=== PATIENT | female | born 2000 | race Caucasian/White ===

== ENCOUNTER → 2025-04-22 | Outpatient (CLI) | payer OTHER, SELFPAY ==
[2025-04-22 13:09] LABS: Hemoglobin A1c 5.6 % (<=5.6)
[2025-04-22 14:31] LABS: Estradiol 57.3 pg/mL; Follicle Stimulating Hormone 6.3 mIU/mL; Vitamin D,25 Hydroxy 15.2 ng/mL (30-100)
[2025-04-22 14:42] LABS: ALB/GLOB Ratio 1.4 RATIO (0.9-2.4); AST(SGOT) 41 U/L (<=31); Alanine Aminotransfer ALT/SGPT 61 U/L (<=34); Albumin, Serum 4.2 g/dL (3.5-5.0); Alkaline Phosphatase 87 U/L (35-104); Anion Gap 12 (5-15); BUN 10 mg/dL (4-19); BUN/Creat Ratio 13.9 RATIO (10-20); Calcium,Total 9.2 mg/dL (7.6-11.0); Carbon Dioxide 21.9 mmol/L (21.0-32.0); Chloride 104 mmol/L (98-108); Creatinine, Serum 0.69 mg/dL (0.70-1.20); EST Glomerular Filtration Rate 123 (>60); Glucose 95 mg/dL (70-99); Protein, Total 7.3 g/dL (5.9-8.4); Sodium Level 137 mmol/L (133-145); Total Bilirubin 0.28 mg/dL (0.00-1.30)
[2025-04-23 04:07] LABS: PROGESTERONE 0.2 ng/mL (.); PROLACTIN 11.9 ng/mL (4.8-33.4)
== END | disposition home or self-care (01) ==
PROVIDERS: Referring Provider Nurse Practitioner Family; Visit Provider Nurse Practitioner Family
DX: R53.83 Other fatigue (principal)
CPT/HCPCS: 36415; 80053; 82306; 82627; 82670; 83001; 83036; 84144; 84146; 84403; 84439; 84443; 82626

== ENCOUNTER → 2025-05-02 | Outpatient (CLI) | payer OTHER, SELFPAY ==
--- NOTE | 2025-05-02 15:56 | US_ITS ---
PROCEDURE: PELVIC W/ TRANSVAGINAL 05/02/2025 REASON FOR EXAM: IRREGULAR PERIODS TECHNIQUE: PELVIC W/ TRANSVAGINAL COMPARISON: None. FINDINGS: Measurements: Uterus: 8.9 x 3.3 x 5.0 cm for volume of 77.1 mL Endometrial Thickness: 0.8 cm Right Ovary: 1.9 x 1.5 x 1.3 cm for volume of 2.0 mL Left Ovary: 3.1 x 1.9 x 3.0 cm for volume of 9.3 mL Uterus: Anteverted. Normal contour and myometrial echotexture. Tiny nabothian cysts at the cervix. Endometrium: Normal echotexture. Right ovary: Normal size and echotexture. Left ovary: Normal size and echotexture. Dominant follicle measuring 1.9 cm. Other adnexal findings: None. Cul-de-sac: No free intraperitoneal fluid identified. DOPPLER: Color Doppler: Normal color flow doppler signal at both ovaries. Spectral Doppler: Normal arterial inflow and venous outflow signal at both ovaries. US/Pelvic w/ Transvaginal IMPRESSION: NORMAL TRANSABDOMINAL AND TRANSVAGINAL PELVIC ULTRASOUND WITH DOPPLER. Reading Location: [id number]
--- OUTSIDE RECORDS SUMMARY | 2025-05-02 23:07 | XMS RPT_ITS | CCD ---
Author Organization [facility] Care Team Providers Care Electric Blanket Wirer Name Role Phone VALDEZANDIE Unavailable Unavailable REFERRED, SELF Unavailable Unavailable MARELY SKINNER Unavailable Unavailable MARELY SKINNER Unavailable Unavailable REFERRED, SELF Unavailable Unavailable MARELY SKINNER Unavailable Unavailable ObsabinohausHenry felixn Unavailable Unavailable Arabella Dubois Unavailable Unavailable ObsabinohausJarrod felix Unavailable Unavailab Deysi Pearce Unavailable Unavailable Porsche Mack Unavailable Unavailable ObsabinohausJarrod felix Unavailable Unavailab Get Bain Unavailable Unavailable ObsabinohausJarrod felix L Unavailable [phone] Alexandra Srivastava Unavailable [phone] Arabella Dubois Unavailable Babar Linn Unavailable ObJarrod wheeler L Unavailable Unavailable Unavailable Von Morris Unavailable Unavailable Bel Dickson Unavailable Unavailable Unavailable Unavailable Neo Gómez Unavailable Unavailable Nichelle Hsieh Unavailable TAYLOR PARTIDA Referring Unavailable Jarrod Patton Primary Care Unavailable NASRA PARTIDAA Attending Unavailable ObJarrod wheeler Primary Care Unavailable TAYLOR PARTIDA Attending Unavailable OBDO JARROD WHEELER Primary Care UnaNichelle Khan Attending Unavailable OberhausJarrod felix DO Primary Care Provider Porsche Bautista Unavailable OBERHAUSER, JARROD L Primary Care Unavailable OBERHAUSER, JARROD L Primary Care Unavailable Oberhauser DO, Jarrod L Primary Care Provider [phone] NATASHA ANU Attending Unavailable OBERHAUSER, JARROD L Primary Care Unavailable OBERHAUSER, JARROD L Primary Care Unavailable OVN MORRIS Attending Unavailable OBERHAUSER, JARROD L Primary Care Unavailable OBERHAUSER, JARROD L Primary Care Unavailable NICHELLE HSIEH Attending Unavailable Veronica PA-C, Steve Primary Care Provider JESSICA HUSTON Attending Unavaila ble STENTZ, STEVE Primary Care Unavailable OBERHAUSER, JARROD Primary Care Unavailable ANDRES PALACIOS Attending Unavailable STENTZ, STEVE Attending Unavailable STENTZ, STEVE Primary Care Unavailable Casper COMPUTER BOOKKEEPER-C, Whit Attending Provider Casper COMPUTER BOOKKEEPER-C, Whit Referring Provider Casper, Whit Attending Unavailable Barkman, Whit Attending Unavailable Barkman, Whit Referring Unavailable Barkman, Whit Attending Unavailable Barkman, Whit Referring Unavailable Stentz, Steve Primary Care Unavailable Whit Shirley Attending Unavailable Luke Dominguez Attending Unavailable Allergies Allergy Classification Reported Allergen(s) Allergy Type Date of Onset Reaction(s) Facility Cephalosporins (antibiotic) (4 sources) Cephalexin; Translations: [cephalexin] Drug Allergy Unknown, [facility] Dust (3 sources) house dust Substance Allergy [facility] [place] [address] [employer] Work Phone: [phone] Mold Extract (3 sources) Mold Extract Drug Allergy [facility] [employer] Work Phone: Penicillins (antibiotic) (4 sources) Penicillin; Translations: [Penicillins] Drug Allergy Unknown, [facility] Pollen (3 sources) bee pollen Substance Allergy [place] [address] [employer] Work Phone: Sulfonamides (antibiotic) (4 sources) Sulfonamides (Antibiotic); Translations: [sulfa] Drug Allergy Unknown, [facility] (20 sources) cephalexin; Translations: [CEPHALEXIN] Drug Allergy 10-31-2 017 Rash, Unknown [facility] Repository (4 sources) AMOXICILLIN-POT CLAVULANATE; Translations: [AMOXICILLIN-POT CLAVULANATE] Propensity to adverse reactions to drug (disorder) Rash [facility] Rep[facility] (2 sources) SULFA ANTIBIOTICS; Translations: [SULFA ANTIBIOTICS] Propensity to adverse reactions to drug (disorder) [facility] (16 sources) bee pollen Allergy to substance (finding) [facility] Work Phone: [phone] (16 sources) house dust Allergy to substance (finding) [facility] Work Phone: [phone] (19 sources) Mold Extract; Translations: [MOLD] Drug Allergy 025 Unknown [facility] Work Phone: [phone] (20 sources) Penicillins; Translations: [Penicillins] Allergy to drug (finding) 017 Rash [facility] Work Phone: [phone] (16 sources) Sulfonamides (Antibiotic); Translations: [sulfa] Allergy to drug (finding) Rash [facility] Work Phone: [phone] (4 sources) Sulfonamides (Antibiotic) Unknown [facility] (6 sources) House dust mite Allergy to substance (finding) [facility] Work Phone: [phone] (6 sources) [place] Allergy to substance (finding) [facility] Work Phone: [phone] (6 sources) populus deltoides subsp. deltoides pollen Allergy to substance (finding) [facility] Work Phone: [phone] (6 sources) Grass Allergy to substance (finding) [facility] Work Phone: [phone] (6 sources) Elm Allergy to substance (finding) [facility] Work Phone: [phone] (8 sources) Nettle; Translations: [NETTLE] Allergy to substance (finding) 025 Unknown [facility] Work Phone: [phone] (6 sources) Maple Flavor LIQD; Translations: [Maple Flavor LIQD] Allergy to drug (finding) [facility] Work Phone: [phone] (6 sources) Animal dander - Cats Allergy to substance (finding) [facility] Work Phone: [phone] (6 sources) Alternaria Allergy to substance (finding) [facility] Work Phone: [phone] (9 sources) Birch; Translations: [BIRCH] Allergy to substance (finding) 025 Unknown [facility] Work Phone: [phone] (6 sources) [place] Allergy to substance (finding) [facility] Work Phone: [phone] (6 sources) Animal dander - Dogs Allergy to substance (finding) [facility] Work Phone: [phone] (6 sources) Animal dander - Horses Allergy to substance (finding) [facility] Work Phone: [phone] (4 sources) Amoxicillin; Translations: [AMOXICILLIN] Drug Allergy 025 Unknown [facility] (9 sources) Bee pollen; Translations: [BEE POLLEN] Drug Allergy Itching [facility] (5 sources) Penicillins Drug Allergy 017 Rash, Runny nose [facility] Work Phone: (10 sources) Sulfonamides (Antibiotic); Translations: [SULFA (SULFONAMIDE ANTIBIOTICS)] Propensity to adverse reactions 020 Rash, Other, Unknown [facility] Work Phone: (8 sources) Horse Dander Standardized Allergenic Extract; Translations: [HORSE DANDER STANDARDIZED ALLERGENIC EXTRACT] Allergy to substance Itching [facility] Work Phone: (9 sources) House Dust Mite; Translations: [HOUSE DUST MITE] Allergy to substance Other [facility] Work Phone: (2 sources) Alternaria alternata allergenic extract; Translations: [ALTERNARIA ALTERNATA ALLERGENIC EXTRACT] Drug Allergy [facility] (3 sources) cedar elm pollen extract; Translations: [TREE POLLEN-ELM, CEDAR] Drug Allergy [facility] Work Phone: (3 sources) Grass pollen; Translations: [GRASS POLLEN] Allergy to substance [facility] Work Phone: (3 sources) white mulberry; Translations: [WHITE MULBERRY] Allergy to substance [facility] Work Phone: (3 sources) Maple Flavoring; Translations: [MAPLE FLAVORING] Drug Allergy [facility] Work Phone: (3 sources) Tree Pollen-Brazilian [place]; Translations: [TREE POLLEN-KITTITIAN SYCAMORE] Allergy to substance [facility] Work Phone: (1 source) Sulfacetamide; Translations: [SULFACETAMIDE SODIUM] Drug Allergy 016 [facility] Repository (2 sources) Sulfonamides (Antibiotic) Allergy to substance 025 Other [facility] (2 sources) Dihydroaminopryidine Antibiotics Allergy to substance 025 Rash [facility] (1 source) Sulfonamides (Antibiotic) Drug allergy (disorder) 025 [facility] Rep[facility] (1 source) Dihydroaminopryidine Antibiotics Drug allergy (disorder) 025 [facility] Repository Medications Current Medications Medication Drug Class(es) Dates Sig (Normalized) Sig (Original) acetaminophen 325 mg oral capsule (3 sources) Start: 11-21-2023 take 1 capsule by mouth once as needed Acetaminophen (Tylenol) 325 mg capsule Active 325 mg PO ONCE as needed November 21, 2023 1:00am acetaminophen (T YLENOL) 325 mg cap Take by mouth three times a day as needed for pain. Active acetaminophen 300 mg / butalbital 50 mg oral tablet (4 sources) Barbiturate take 1 tablet by mouth every four hours butalbital-acetaminophen 50 mg-300 mg oral tablet ; 1 tab(s) orally every 4 hours Quantity: 0 Refills: 0 Ordered: 20-Aug-2019 Fátima Polanco Status: Discontinued Generic Substitution Allowed acetaminophen 325 mg / oxyCODONE hydrochloride 5 mg oral tablet (4 sources) Opioid Agonist Start: 2017 take 1 tablet by mouth every six hours as needed oxyCODONE-acetaminophen 5 mg-325 mg oral tablet ; 1 tab(s) orally every 6 hours, As Needed -Pain - Mod (4-6) ICD-10: 89.18 Quantity: 28 Refills: 0 Ordered: 13-Jul-2018 Hugo Aguilar Start: 13-Jul-2018 Status: Discontinued Generic Substitution Allowed [id number] 200 actuat albuterol 0.09 mg/actuat metered dose inhaler (3 sources) beta2-Adrenergic Agonist Start: 2023 End: 2023 albuterol 90 mcg/actuation inhaler Start: 11-21-2023 End: 07-16-2024 Albuterol Sulfate 90 mcg/act uation HFA aerosol inhaler Discontinued 2 NMA INHALATION EVERY 4-6 HOURS as needed for shortness of breath or wheezing 8.5 November 21, 2023 1:00am July 16, 2024 8:45am aspirin 385 mg / caffeine 30 mg / orphenadrine citrate 25 mg oral tablet (8 sources) Platelet Aggregation Inhibitor, Nonsteroidal Anti-inflammatory Drug, Muscle Relaxant, Central Nervous System Stimulant, Methylxanthine take 1 tablet by mouth once daily Norgesic oral tablet ; 1 dose(s) orally once a day Quantity: 0 Refills: 0 Ordered: 20-Aug-2019 Fátima Polanco Status: Discontinued Generic Substitution Allowed baclofen 10 mg oral tablet (1 source) gamma-Aminobutyric Acid-ergic Agonist Start: 2022 End: 2022 take 1 tablet by mouth twice daily baclofen 10 mg oral tablet ; 1 tab(s) orally 2 times a day Quantity: 14 Refills: 0 Ordered: 13-Mar-2023 Nichelle Hsieh Start: 13-Mar-2023 End: 19-Mar-2023 Generic Substitution Allowed Comments: It is very important that you take or use this exactly as directed. Do not skip doses or discontinue unless directed by your doctor.May cause drowsiness. Alcohol may intensify this effect. Use care when operating dangerous machinery.Obtain medical advice before taking any non-prescription drugs as some may affect the action of this medication. Comment on above: It is very important that you take or use this exactly as directed. Do not skip doses or discontinue unless directed by your doctor.May cause drowsiness. Alcohol may intensify this effect. Use care when operating dangerous machinery.Obtain medical advice before taking any non-prescription drugs as some may affect the action of this medication. BRUTAL/ACT/CAFF (4 sources) BRUTAL/ACT/CAFF ; orally once a day, As Needed Quantity: 0 Refills: 0 Ordered: 11-Nov-2019 Collin Melanic Status: Discontinued Generic Substitution Allowed CETURIZINE (4 sources) CETURIZINE ; orally once a day Quantity: 0 Refills: 0 Ordered: 11-Nov-2019 Fátima Polanco Status: Discontinued Generic Substitution Allowed dextromethorphan hydrobromide 3 mg/ml / promethazine hydrochloride 1.25 mg/ml oral solution (1 source) Phenothiazine, Uncompetitive N-lpzosl-J-aspartate Receptor Antagonist, Sigma-1 Agonist Start: 2023 End: 2023 take 5 mL by mouth four times daily as needed for cough promethazine-DM (Phenergan-DM) 6.25-15 mg/5 mL syrup Indications: Acute URI , Nonspecific syndrome suggestive of viral illness Take 5 mL by mouth 4 times a day as needed for cough for up to 7 days. 118 mL 07/13/2024 07/20/2024 Active docusate sodium 100 mg oral capsule (4 sources) Start: 2017 take 1 capsule by mouth twice daily docusate sodium 100 mg oral capsule ; 1 cap(s) orally 2 times a day Quantity: 0 Refills: 0 Ordered: 12-Jul-2018 Anel Salazar Start: 12-Jul-2018 Status: Discontinued Generic Substitution Allowed naproxen 500 mg oral tablet (1 source) Nonsteroidal Anti-inflammatory Drug Start: 2022 End: 2022 take 1 tablet by mouth twice daily at mealtime naproxen 500 mg oral tablet ; 1 tab(s) orally 2 times a day TAKE WITH FOOD AND DRINK Quantity: 14 Refills: 0 Ordered: 13-Mar-2023 Nichelle Hsieh Start: 13-Mar-2023 End: 19-Mar-2023 Generic Substitution Allowed Comments: Check with your doctor before becoming .May cause drowsiness or dizziness.Obtain medical advice before taking any non-prescription drugs as some may affect the action of this medication.Take with food or milk. Comment on above: Check with your doct or before becoming .May cause drowsiness or dizziness.Obtain medical advice before taking any non-prescription drugs as some may affect the action of this medication.Take with food or milk. Completed/Discontinued Medications Medication Drug Class(es) Dates Sig (Normalized) Sig (Original) acetaminophen 325 mg / HYDROcodone bitartrate 5 mg oral tablet (1 source) Opioid Agonist Start: 07-13-2021 HYDROcodone-Acetam inophen 5-325 MG Oral Tablet Quantity: 10 Refills: 0 Ordered: 13-Jul-2021 DO Start : 13-Jul-2021 Complete alosetron 0.5 mg oral tablet (5 sources) Serotonin-3 Receptor Antagonist Start: 12-07-2020 take 1 tablet by mouth twice daily Alosetron HCl - 0.5 MG Oral Tablet TAKE 1 TABLET TWICE DAILY. Quantity: 60 Refills: 3 Arabella Dubois DO Start : 07-Dec-2020 Active Comment on above: Source=Surescripts, Medication=ALOSETRON TAB 0.5MG, [facility], Duration=30, Date Last Modified/Filled=07-Dec-2020 amitriptyline hydrochloride 50 mg oral tablet (20 sources) Tricyclic Antidepressant Start: 10-09-2021 take 1 tablet by mouth at bedtime Amitriptyline HCl - 50 MG Oral Tablet TAKE 1 TABLET AT BEDTIME. Quantity: 30 Refills: 11 Ordered: 15-Jan-2022 Jarrod Patton DO Start : 09-Oct-2021 Active Start: 06-20-2020 End: 08-01-2021 take 1 tablet by mouth at bedtime Amitriptyline HCl - 100 MG Oral Tablet take 1 tablet by mouth at bedtime Quantity: 30 Refills: 3 Ordered: 10-Oct-2020 Jarrod Patton DO Start : 20-Jun-2020 End : 01-Aug-2021 Complete Start: 06-20-2020 take 1-2 tablets by mouth at bedtime Amitriptyline HCl - 25 MG Oral Tablet TAKE 1-2 TABLET AT BEDTIME. Quantity: 30 Refills: 4 Jarrod Patton DO Start : 20-Jun-2020 Active Comment on above: Source=Surescripts, Medication=AMITRIPTYLIN TAB 25MG, [facility]Source[facility], Duration=30, Date Last Modified/Filled=02-Sep-2020 azithromycin 250 mg oral tablet (10 sources) Macrolide Antimicrobial Start : 07-16 End: 04-22 take 2-5 tablets by mouth once daily Azithromycin 250 mg tablet Discontinued 0 PO .COMPLEX July 16, 2024 12:00am April 22, 2025 9:32am take 500 mg today (day 1), then 250 mg for 4 days (days 2-5) PO Start: 11-21-2023 End: 12-05-2023 take 2-5 tablets by mouth once daily Azithromycin 250 mg tablet Discontinued 0 PO .COMPLEX 6 November 21, 2023 1:00am December 05, 2023 9:22am take 500 mg today (day 1), then 250 mg for 4 days (days 2-5) PO Start: 12-05-2021 End: 01-15-2022 take 1 tablet by mouth once daily Azithromycin 500 MG Oral Tablet TAKE 1 TABLET DAILY UNTIL FINISHED. Quantity: 7 Refills: 0 Ordered: 05-Dec-2021 Jarrod Patton DO Start : 05-Dec-2021 End : 15-Jan-2022 Complete Start: 09-08-2020 take 4 tablets by mouth once A zithromycin 250 MG Oral Tablet TAKE DIRECTED PER PACKAGE INSTRUCTIONS. Quantity: 1 Refills: 0 Ordered: 13-Nov-2021 Jarrod Patton DO Start : 08-Sep-2020 Active benzonatate 200 mg oral capsule (4 sources) Non-narcotic Antitussive Start: 12-05-2023 End: 07-16-2024 take 1 capsule by mouth three times daily as needed for cough Benzonatate 200 mg capsule Discontinued 200 mg PO THREE TIMES A DAY as needed for cough December 05, 2023 1:00am July 16, 2024 8:45am Start: 11-21-2023 End: 12-05-2023 take 2 capsules by mouth three times daily as needed for cough Benzonatate 100 mg capsule Discontinued 200 mg PO THREE TIMES A DAY as needed for cough November 21, 2023 1:00am December 05, 2023 9:22am 24 hr buPROPion hydrochloride 150 mg extended release oral tablet (8 sources) Aminoketone Start: 02-10-2024 End: 08-08-2024 take 1 tablet by mouth once daily in the morning buPROPion XL (Wellbutrin XL) 150 mg 24 hr tablet Indications: Obesity, morbid, BMI 50 or higher (Multi) Take 1 tablet (150 mg) by mouth once daily in the morning. Do not crush, chew, or split. 30 tablet 5 02/10/2024 07/13/2024 Discontinued (Med List Cleanup) Start: 03-16-2020 End: 11-23-2024 buPROPion SR (ZYBAN SR; WELL BUTRIN SR) 150 mg 12 hr tablet 03/16/2020 11/23/2024 Discontinued take 1 tablet by marleny twice daily buPROPion 150 mg/12 hours (SR) oral tablet, extended release ; 1 tab(s) orally 2 times a day Quantity: 0 Refills: 0 Ordered: 20-Aug-2019 Fátima Polanco Status: Discontinued Generic Substitution Allowed busPIRone hydrochloride 5 mg oral tablet (13 sources) Start: 06-20-2020 End: 10-09-2021 take 1 tablet by mouth three times daily busPIRone HCl - 5 MG Oral Tablet Take 1 tablet by mouth three times a day Quantity: 60 Refills: 3 Ordered: 01-Aug-2020 Jarrod Patton DO Start : 20-Jun-2020 End : 09-Oct-2021 Complete Comment on above: Source=Surescripts, Medication=BUSPIRONE HCL 5 MG TABLET, Orig[facility]Source=[facility], OriginatingProvider=JARROD PATTON, Duration=20, Date Last Modified/Filled=01-Aug-2020 chlorhexidine gluconate 1.2 mg/ml mouthwash (1 source) Start: 07-13-2021 Chlorhexidine Gluconate 0.12 % Mouth/Throat Solution Quantity: 473 Refills: 0 Ordered: 13-Jul-2021 DO Start : 13-Jul-2021 Complete dexamethasone 0.5 mg oral tablet (1 source) Corticosteroid Start: 11-14-2021 take 1 tablet by mouth once daily Decadron 0.5 MG Oral Tablet Take 1 tablet daily Quantity: 5 Refills: 0 Ordered: 14-Nov-2021 Jarrod Patton DO Start : 14-Nov-2021 Active dicyclomine hydrochloride 10 mg oral capsule (9 sources) Anticholinergic Start: 07-06-2020 End: 10-09-2021 take 1 capsule by mouth three times daily as needed for muscle spasms Dicyclomine HCl - 10 MG Oral Capsule TAKE 1 CAPSULE 3 times daily PRN spasms Quantity: 60 Refills: 3 Ordered: 06-Jul-2020 Arabella Dubois DO Start : 06-Jul-2020 End : 09-Oct-2021 Complete diphenhydrAMINE hydrochloride 25 mg oral tablet (4 sources) Histamine-1 Receptor Antagonist Start: 07-24-2024 End: 12-07-2024 take 2 tablets by mouth every six hours as needed diphenhydrAMINE (Sominex) 25 mg tablet Take 2 (two) tablets (50 mg total) by mouth every 6 (six) hours as needed for itching . 30 tablet 07/24/2024 11:36 AM EDT 07/24/2024 12/07/2024 Discontinued (Med List Cleanup) Start: 02-21-2024 End: 07-13-2024 take 1 tablet by mouth every six hours diphenhydrAMINE (Sominex) 25 mg tablet Indications: Allergic contact dermatitis due to cosmetics Take 1 tablet (25 mg) by mouth every 6 hours if needed for allergies for up to 30 doses. 30 tablet 02/21/2024 07/13/2024 Discontinued (Med List Cleanup) famotidine 20 mg oral tablet (4 sources) Histamine-2 Receptor Antagonist Start: 02-21-2024 End: 07-13-2024 take 2 tablets by mouth once daily famotidine (Pepcid) 20 mg tablet Indications: Allergic contact dermatitis due to cosmetics Take 2 tablets (40 mg) by mouth once daily for 5 days. 10 tablet 02/21/2024 07/13/2024 Discontinued (Med List Cleanup) Start: 02-21-2024 take 40 mg by mouth once 40 mg , oral, Once, On 02/21/24 at 1025, For 1 dose hydrOXYzine hydrochloride 25 mg oral tablet (7 sources) Antihistamine Start: 12-05-2021 take 1 tablet by mouth three to four times daily as needed hydrOXYzine HCl - 25 MG Oral Tablet TAKE 1 TABLET 3 TO 4 TIMES DAILY NEEDED FOR ITCHING. Quantity: 30 Refills: 1 Ordered: 05-Dec-2021 Jarrod Patton DO Start : 05-Dec-2021 Active ibuprofen 800 mg oral tablet (20 sources) Nonsteroidal Anti-inflammatory Drug Start: 08-16-2019 Ibuprofen 800 MG Oral Tablet Quantity: 30 Refills: 0 Ordered: 16-Aug-2019 DO Start : 16-Aug-2019 Active Start: 08-16-2019 Ibuprofen 800 MG Oral Tablet Quantity: 30 Refills: 0 Start : 16-Aug-2019 Active Start: 01-27-2013 End: 11-23-2024 ibuprofen (MOTRIN) 200 mg ta blet Take 400 mg by mouth. 01/27/2013 11/23/2024 Discontinued take 1 tablet by marleny th every six hours ibuprofen 600 mg oral tablet ; 1 tab(s) orally every 6 hours Quantity: 0 Refills: 0 Ordered: 19-Jul-2021 Judy Meraz Generic Substitution Allowed loratadine 10 mg oral tablet (3 sources) Start: 07-21-2017 End: 11-23-2024 take 1 tablet by mouth once daily loratadine (Claritin) 10 mg tablet Take 1 (one) tablet (10 mg total) by mouth daily for 14 days . 14 tablet 02/23/2024 07/13/2024 Discontinued (Med List Cleanup) 24 hr loratadine 10 mg / pseudoephedrine sulfate 240 mg extended release oral tablet (9 sources) alpha-Adrenergic Agonist End: 10-09-2021 Claritin-D 24 Hour 10-240 MG Oral Tablet Extended Release 24 Hour Quantity: 0 Refills: 0 Ordered: 09-Oct-2021 DO End : 09-Oct-2021 Complete methylPREDNISolone 4 mg oral tablet (2 sources) Corticosteroid Start: 07-16-2024 End: 07-22-2024 take 1 tablet by mouth once Methylprednisolone (Medrol (Asad)) 4 mg tablets,dose pack Discontinued 4 mg PO per package directions 30 04July 16, 2024 12:00am July 21, 2024 12:00am July 22, 2024 12:05am montelukast 10 mg oral tablet (2 sources) Leukotriene Receptor Antagonist Start: 02-27-2024 End: 07-13-2024 take 1 tablet by mouth once daily montelukast (Singulair) 10 mg tablet Take 1 tablet (10 mg) by mouth once daily. 30 tablet 4 02/27/2024 07/13/2024 Discontinued (Med List Cleanup) nitrofurantoin, macrocrystals 100 mg oral capsule (4 sources) Nitrofuran Antibacterial Start: 08-20-2019 End: 08-24-2019 take 1 capsule by mouth twice daily at mealtime Macrodantin 100 mg oral capsule ; 1 cap(s) orally 2 times a day Quantity: 10 Refills: 0 Ordered: 20-Aug-2019 Jose Liu Start: 20-Aug-2019 End: 24-Aug-2019 Status: Discontinued Generic Substitution Allowed Comments: Finish all this medication unless otherwise directed by prescriber.May discolor urine or feces.Take with food or milk. Comment on above: Finish all this medi cation unless otherwise directed by prescriber.May discolor urine or feces.Take with food or milk. ondansetron 4 mg oral tablet (3 sources) Serotonin-3 Receptor Antagonist Start: 12-18-2021 End: 01-15-2022 take 1 tablet by mouth every six hours Ondansetron HCl - 4 MG Oral Tablet TAKE 1 TABLET Every 6 hours PRN nausea Quantity: 20 Refills: 0 Ordered: 18-Dec-2021 Jarrod Patton DO Start : 18-Dec-2021 End : 15-Jan-2022 Complete 24 hr oxybutynin chloride 10 mg extended release oral tablet (10 sources) Cholinergic Muscarinic Antagonist Start: 12-07-2020 End: 10-09-2021 take 1 tablet by mouth once daily Oxybutynin Chloride ER 10 MG Oral Tablet Extended Release 24 Hour Take 1 tablet daily Quantity: 3 Refills: 11 Ordered: 07-Dec-2020 Ilene CHIN, PhD, Get Start : 07-Dec-2020 End : 09-Oct-2021 Complete Comment on above: Source=Surescripts, Medication=OXYBUTYNIN TAB 10MG ER, [facility]Source=[facility], Duration=30, Date Last Modified/Filled=07-Dec-2020 Pre- TABS (1 source) Pre-Oswaldo TABS Refills: 0 Active Pre- TABS (5 sources) End: 10-09-2021 Pre-Oswaldo TABS Quantity: 0 Refills: 0 Ordered: 09-Oct-2021 DO End : 09-Oct-2021 Complete Pre-Oswaldo TABS Q uantity: 0 Refills: 0 Ordered: 07-Nov-2020 DO Active predniSONE 50 mg oral tablet (11 sources) Start: 07-24-2024 End: 12-07-2024 take 1 tablet by mouth once daily predniSONE (Deltasone) 50 mg tablet Take 1 (one) tablet (50 mg total) by mouth daily for 5 days . 5 tablet 07/24/2024 11:36 AM EDT 07/24/2024 12/07/2024 Discontinued (Med List Cleanup) Start: 02-23-2024 End: 07-13-2024 take 3 tablets by mouth once daily, then take 2 tablets by mouth once daily, then take 1 tablet by mouth once daily, then take 0.5 tablet by mouth once daily predniSONE (Deltasone) 20 mg tablet Take 3 (three) tablets (60 mg total) by mouth daily for 2 days, THEN 2 (two) tablets (40 mg total) daily for 3 days, THEN 1 (one) tablet (20 mg total) daily for 3 days, THEN 0.5 (one-half) tablet (10 mg total) daily for 2 days. 16 tablet 02/23/2024 07/13/2024 Discontinued (Med List Cleanup) Start: 02-21-2024 End: 02-25-2024 take 4 tablets by mouth once daily predniSONE (Deltasone) 10 mg tablet Indications: Allergic contact dermatitis due to cosmetics Take 4 tablets (40 mg) by mouth once daily for 4 days. 16 tablet 02/21/2024 02/25/2024 Active Start: 02-21-2024 End: 02-21-2024 take 40 mg by mouth once 40 mg, oral, Once, On Sat at 1025, For 1 dose Start: 12-05-2023 End: 07-16-2024 take 1 tablet by mouth twice daily Prednisone 10 mg tablet Discontinued 10 mg PO TWICE A DAY December 05, 2023 1:00am July 16, 2024 8:45am Start: 08-20-2019 take 3 tablets by mo uth once daily at mealtime predniSONE 20 mg oral tablet ; 3 tab(s) orally once a day Quantity: 3 Refills: 0 Ordered: 20-Aug-2019 Jose Liu J Start: 20-Aug-2019 Status: Discontinued Generic Substitution Allowed Comments: It is very important that you take or use this exactly as directed. Do not skip doses or discontinue unless directed by your doctor.Obtain medical advice before taking any non-prescription drugs as some may affect the action of this medication.Take with food or milk. Comment on above: It is very important that you take or use this exactly as directed. Do not skip doses or discontinue unless directed by your doctor.Obtain medical advice before taking any non-prescription drugs as some may affect the action of this medication.Take with food or milk. rifAXIMin 550 mg oral tablet (3 sources) Rifamycin Antibacterial Start: 06-14-20 End: 10-09-20 21 take 1 tablet by mouth three times daily Xifaxan 550 MG Oral Tablet 1 tablet 3 times daily until gone Quantity: 42 Refills: 0 Ordered: 14-Jun-2021 Arabella Dubois DO Start : 14-Jun-2021 End : 09-Oct-2021 Complete SUMAtriptan 50 mg oral tablet (11 sources) Serotonin-1b and Serotonin-1d Receptor Agonist Start: 10-09-20 21 take 1 tablet by mouth once daily as needed for headache SUMAtriptan Succinate 50 MG Oral Tablet TAKE ONE TABLET BY MOUTH DAILY NEEDED FOR MIGRAINE HEADACHE, M... Quantity: 12 Refills: 3 Ordered: 09-Oct-2021 Jarrod Patton DO Start : 09-Oct-2021 Active tirzepatide, weight loss, (Zepbound) 2.5 mg/0.5 mL injection (4 sources) Start: 02-10-20 End: 07-13-20 tirzepatide, weight loss, (Zepbound) 2.5 mg/0.5 mL injection Indications: Obesity, morbid, BMI 50 or higher (Multi) Inject 2.5 mg under the skin every 7 days. 4 each 02/10/2024 07/13/2024 Discontinued (Med List Cleanup) Start: 02-10-2024 tirzepatide, w eight loss, (Zepbound) 2.5 mg/0.5 mL injection Indications: Obesity, morbid, BMI 50 or higher (Multi) Inject 2.5 mg under the skin every 7 days. 4 each 02/10/2024 Active Start: 02-10-2024 tirzepatide, w eight loss, (Zepbound) 2.5 mg/0.5 mL injection Indications: Obesity, morbid, BMI 50 or higher (CMS/HCC) Inject 2.5 mg under the skin every 7 days. 4 each 0 02/10/2024 Active Problems Active Problems Problem Classification Problem Date Documented Da te Episodic/Chronic Abdominal pain (19 sources) Left lower quadrant pain; Translations: [Abdominal pain, left lower quadrant] Episodic Anxiety disorders (19 sources) Anxiety; Translations: [Anxiety state, unspecified] Chronic E Codes: Fall (1 source) Fall on same level from slipping, tripping and stumbling with subsequent striking against other object, initial encounter; Translations: [Fall same lev from slip/trip w strike agnst oth object, init] Onset: 03-13-2023 Episodic Female infertility (1 source) Female infertility; Translations: [Female infertility, unspecified] 12-07-2024 Chronic Genitourinary symptoms and ill-defined conditions (18 sources) Urinary incontinence; Translations: [Urinary incontinence, unspecified] Chronic Headache; including migraine (19 sources) Migraine; Translations: [Migraine, unspecified, without mention of intractable migraine without mention of status migrainosus] Chronic Immunizations and screening for infectious disease (20 sources) Patient encounter status; Translations: [Screening examination for venereal disease] 04-22-2025 Episodic Comment on above: has attempted pregna ncy since 2021-hx 2 miscarriages (around 8 weeks) Malaise and fatigue (1 source) Other fatigue; Translations: [Other fatigue] Onset: 04-28-2025 Episodic Menstrual disorders (9 sources) Missed period; Translations: [Irregular menstrual cycle] Onset: 04-22-2025 04-22-2025 Chronic Nausea and vomiting (6 sources) Nausea and vomiting; Translations: [Nausea with vomiting] Episodic Nutritional deficiencies (1 source) Vitamin D deficiency; Translations: [Vitamin D deficiency, unspecified] 04-26-2025 Chronic Nutritional deficiencies (4 sources) Iron deficiency; Translations: [Iron deficiency anemia, unspecified] Episodic Other and unspecified benign neoplasm (1 source) Neuroma of foot; Translations: [Alonso's neuroma of left foot] Episodic Other bone disease and musculoskeletal deformities (1 source) Idiopathic kyphoscoliosis; Translations: [Other idiopathic scoliosis, site unspecified] Onset: 08-09-2010 11-23-2024 Chronic Other connective tissue disease (19 sources) Foot pain; Translations: [Pain in limb] Episodic Other diseases of bladder and urethra (16 sources) Overactive bladder; Translations: [Overactive bladder] Chronic Other female genital disorders (20 sources) Abnormal uterine bleeding; Translations: [Unspecified disorders of menstruation and other abnormal bleeding from female genital tract] 01-12-2022 Chronic Other female genital disorders (1 source) Dysfunctional uterine bleeding 01-12-2022 Chronic Other gastrointestinal disorders (19 sources) Irritable bowel syndrome with diarrhea; Translations: [Irritable bowel syndrome] Chronic Other gastrointestinal disorders (19 sources) Constipation; Translations: [Constipation, unspecified] Episodic Other gastrointestinal disorders (19 sources) Diarrhea; Translations: [Diarrhea] Episodic Other gastrointestinal disorders (17 sources) Incontinence of feces; Translations: [Full incontinence of feces] Episodic Other injuries and conditions due to external causes (1 source) Allergic reaction; Translations: [Allergy, unspecified, sequela] 03-04-2024 Episodic Other liver diseases (2 sources) Elevated liver enzymes level; Translations: [Other nonspecific abnormal serum enzyme levels] 01-12-2022 Episodic Other nervous system disorders (20 sources) Alonso's metatarsalgia; 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 Other nervous system disorders (3 sources) Mortons neuroma of left foot; 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 Other nutritional; endocrine; and metabolic disorders (14 sources) Body mass index 40+ - severely obese; Translations: [Morbid obesity] Chronic Other nutritional; endocrine; and metabolic disorders (8 sources) Morbid obesity; Translations: [Morbid (severe) obesity due to excess calories] Onset: 02-10-2024 02-10-2024 Chronic Other nutritional; endocrine; and metabolic disorders (3 sources) Obesity; Translations: [Obesity, unspecified] 04-22-2025 Chronic Other nutritional; endocrine; and metabolic disorders (2 sources) Abnormal weight gain; Translations: [Abnormal weight gain] Onset: 02-10-2024 Episodic Other screening for suspected conditions (not mental disorders or infectious disease) (20 sources) Cancer cervix - screening done; Translations: [Cancer cervix screening status] Onset: 01-02-2023 Episodic Other upper respiratory disease (19 sources) Seasonal allergy; Translations: [Allergic rhinitis, cause unspecified] Chronic Other upper respiratory disease (2 sources) Allergic rhinitis due to pollen; Translations: [Allergic rhinitis due to pollen] Onset: 02-27-2024 Chronic Other upper respiratory infections (16 sources) Sinusitis; Translations: [Unspecified sinusitis (chronic)] Chronic Other upper respiratory infections (20 sources) Sore throat symptom; Translations: [Acute pharyngitis] Onset: 07-13-2024 07-13-2024 Episodic Spondylosis; intervertebral disc disorders; other back problems (1 source) Pain in thoracic spine; Translations: [Pain in thoracic spine] Onset: 03-13-2023 Episodic Superficial injury; contusion (3 sources) Contusion of nose; Translations: [Contusion of face, scalp, and neck except eye(s)] 04-16-2021 Episodic Unclassified (2 sources) POSS CARTILAGE BREAK IN NOSE 04-16-2021 Comment on above: POSS CARTILAGE BREAK IN NOSE Unclassified (1 source) 1 MONTH FU 04-16-2021 Comment on above: 1 MONTH FU Unclassified (2 sources) LT FOOT PAIN 07-19-2021 Comment on above: LT FOOT PAIN Unclassified (2 sources) Patient encounter procedure 11-07-2020 Comment on above: YEARLY Unclassified (2 sources) LEFT HAND PAIN 08-10-2021 Comment on above: LEFT HAND PAIN Unclassified (1 source) Contusion of left hand 08-10-2021 Unclassified (2 sources) 5-6 WEEKS , BLEEDING, CRAMPING 01-11-2022 Comment on above: 5-6 WEEKS , BLEEDING, CRAMPING Unclassified (1 source) NEW OB- LMP 12/0812-31-2021 Comment on above: NEW OB- LMP 12/08 Unclassified (1 source) 2 MONTH FUV 12-05-2021 Comment on above: 2 MONTH FUV Unclassified (1 source) Elevated liver enzymes 01-12-2022 Unclassified (2 sources) FALL OFF CEMENT STEP 03-13-2023 Comment on above: FALL OFF CEMENT STEP Unclassified (2 sources) Contusion of middle back wall of thorax, initial encounter; Translations: [Contusion of middle back wall of thorax, initial encounter] Onset: 03-13-2023 Past or Other Problems Problem Classification Problem Date Documented Da te Episodic/Chronic Acute bronchitis (5 sources) Acute bronchitis, unspecified; Translations: [Acute bronchitis] Onset: 12-20-2023 Episodic Allergic reactions (20 sources) Allergic condition; Translations: [Allergy, unspecified, not elsewhere classified] Onset: 02-21-2024 02-21-2024 Episodic Blindness and vision defects (1 source) Bilateral hyperopia of eyes; Translations: [Hypermetropia, bilateral] Onset: 2020 2020 Episodic Fracture of upper limb (1 source) Fracture dislocation of elbow joint; Translations: [Unspecified fracture of lower end of left humerus, initial encounter for closed fracture] Onset: 07-17-2016 11-23-2024 Episodic Other nutritional; endocrine; and metabolic disorders (5 sources) Weight gain; Translations: [Abnormal weight gain] Onset: 02-10-2024 02-10-2024 Episodic Other nutritional; endocrine; and metabolic disorders (1 source) Weight increased; Translations: [Abnormal weight gain] Onset: 02-10-2024 02-10-2024 Episodic Unclassified (19 sources) Finding of menstrual bleeding; Translations: [Menstruation] Comment on above: Onset age 8 years; Unclassified (4 sources) Patient encounter status; Translations: [Screening for STD (sexually transmitted disease)] Unclassified (1 source) Cancer cervix screening status; Translations: [Screening for cervical cancer] Unclassified (5 sources) Onset: 02-10-2024 Resolved: 12-07-2024 02-10-2024 Unclassified (1 source) pt to est care Onset: 12-07-2024 Viral infection (11 sources) Disease caused by 2019-nCoV; Translations: [Other specified viral infection] Onset: 07-13-2024 07-13-2024 Episodic NEGATED: Highlighted row has not occurred!Residual codes; unclassified (20 sources) Disease Episodic Results Test Name Value Interpretation Reference Range Facility DHEA Sulfateon 04-23-2025 DHEA SULFATE 116.0 ug/dL Normal 84.8-378.0 [facility] Comment on above: Order Comment: N Performed By: #### L 501.9985, L3100.5125, L3300.1750, L500.4050, L506.0400, L506.1001, L501.9520, L509.3001, L3100.5400, L3300.1500, L801.2600 #### [facility] [address] [place], [place], [address] PROGESTERONE 4317on 04-23-20 PROGESTERONE 0.2 ng/mL Normal . [facility] Comment on above: Order Comment: N Result Comment: Foll icular phase 0.1 - 0.9 Luteal phase 1.8 - 23.9 Ovulation phase 0.1 - 12.0 First trimester 11.0 - 44.3 Second trimester 25.4 - 83.3 Third trimester 58.7 - 214.0 Postmenopausal 0.0 - 0.1 Performed at: [facility] [id number] [employer] Admin: David Tai PhD, Phone: [phone] Performed By: #### L 501.9985, L3100.5125, L3300.1750, L500.4050, L506.0400, L506.1001, L501.9520, L509.3001, L3100.5400, L3300.1500, L801.2600 #### [facility] [address] [facility] [place], [place], [id number] PROLACTIN 4465on 04-23-2025 PROLACTIN 11.9 ng/mL Normal 4.8-33.4 [facility] Comment on above: Result Comment: Perf ormed at: [employer] [id number] [employer] Admin: David Tai PhD, Phone: [phone] Performed By: #### L 501.9985, L3100.5125, L3300.1750, L500.4050, L506.0400, L506.1001, L501.9520, L509.3001, L3100.5400, L3300.1500, L801.2600 #### [facility] [address] [place], [place], [id number] Anion gap in Serum or Plasma Ordered By: Whit Shirley on 04-22-2025 Anion gap [Moles/Vol] 12 mmol/L 5-15 [facility] BUN/creatinine ratioOrdered By: Whit Shirley on 04-22-2025 Urea nitrogen/Creatinine [Mass ratio] 13.9 mg/mg 10-20 [facility] Bilirubin, totalOrdered By: Whit Shirley on 04-22-2025 Bilirubin [Mass/Vol] 0.28 mg/dL 0.00-1.30 [facility] Carbon dioxide, total [Moles /volume] in Central venous bloodOrdered By: Whit Shirley on 04-22-2025 CO2 [Moles/Vol] 21.9 mmol/L 21.0-32.0 [facility] Chloride assayOrdered By: Charito Shirley on 04-22-2025 Chloride [Moles/Vol] 104 mmol/L 98-108 [facility] Comprehensive Metabolic Prof ilon 04-22-2025 Albumin [Mass/Vol] 4.2 g/dL Normal 3.5-5.0 [facility] Comment on above: Performed By: #### L 501.9985, L3100.5125, L3300.1750, L500.4050, L506.0400, L506.1001, L501.9520, L509.3001, L3100.5400, L3300.1500, L801.2600 #### [facility] [address] [place], [address] (084) Albumin/Globulin [Mass ratio] 1.4 {ratio} Normal 0.9-2.4 [facility] Comment on above: Performed By: #### L 501.9985, L3100.5125, L3300.1750, L500.4050, L506.0400, L506.1001, L501.9520, L509.3001, L3100.5400, L3300.1500, L801.2600 #### [facility] [address] [place], [address] ALK PHOS 87 U/L Normal 35-104 [facility] Comment on above: Performed By: #### L 501.9985, L3100.5125, L3300.1750, L500.4050, L506.0400, L506.1001, L501.9520, L509.3001, L3100.5400, L3300.1500, L801.2600 #### [facility] [address] [place], [address] ALT [Catalytic activity/Vol] 61 U/L High <=34 [facility] Comment on above: Performed By: #### L 501.9985, L3100.5125, L3300.1750, L500.4050, L506.0400, L506.1001, L501.9520, L509.3001, L3100.5400, L3300.1500, L801.2600 #### [facility] [address] [place], [address] AST [Catalytic activity/Vol] 41 U/L High <=31 [facility] Comment on above: Performed By: #### L 501.9985, L3100.5125, L3300.1750, L500.4050, L506.0400, L506.1001, L501.9520, L509.3001, L3100.5400, L3300.1500, L801.2600 #### [facility] [address] [place], [address] Bilirubin [Mass/Vol] 0.28 mg/dL Normal 0.00-1.30 [facility] Comment on above: Performed By: #### L 501.9985, L3100.5125, L3300.1750, L500.4050, L506.0400, L506.1001, L501.9520, L509.3001, L3100.5400, L3300.1500, L801.2600 #### [facility] [address] [place], [address] BUN/CRE 13.9 RATIO Normal 10-20 [facility] Comment on above: Performed By: #### L 501.9985, L3100.5125, L3300.1750, L500.4050, L506.0400, L506.1001, L501.9520, L509.3001, L3100.5400, L3300.1500, L801.2600 #### [facility] [address] [place], [address] Calcium [Mass/Vol] 9.2 mg/dL Normal 7.6-11.0 [facility] Comment on above: Performed By: #### L 501.9985, L3100.5125, L3300.1750, L500.4050, L506.0400, L506.1001, L501.9520, L509.3001, L3100.5400, L3300.1500, L801.2600 #### [facility] [address] [place], [address] Chloride [Moles/Vol] 104 mmol/L Normal 98-108 [facility] Comment on above: Performed By: #### L 501.9985, L3100.5125, L3300.1750, L500.4050, L506.0400, L506.1001, L501.9520, L509.3001, L3100.5400, L3300.1500, L801.2600 #### [facility] [address] [place], [address] CO2 [Moles/Vol] 21.9 mmol/L Normal 21.0-32.0 [facility] Comment on above: Performed By: #### L 501.9985, L3100.5125, L3300.1750, L500.4050, L506.0400, L506.1001, L501.9520, L509.3001, L3100.5400, L3300.1500, L801.2600 #### [facility] [address] [place], [place], [id number] (040) Creatinine [Mass/Vol] 0.69 mg/dL Low 0.70-1.20 [facility] Comment on above: Performed By: #### L 501.9985, L3100.5125, L3300.1750, L500.4050, L506.0400, L506.1001, L501.9520, L509.3001, L3100.5400, L3300.1500, L801.2600 #### [facility] [address] [place], [place], [id number] (971) GAP 12 Normal 5-15 [facility] Comment on above: Performed By: #### L 501.9985, L3100.5125, L3300.1750, L500.4050, L506.0400, L506.1001, L501.9520, L509.3001, L3100.5400, L3300.1500, L801.2600 #### [facility] [address] [place], [address] (867) GFR/1.73 sq M.predicted among non-blacks MDRD (S/P/Bld) [Vol rate/Area] 123 mL/min/{1.73_m2} Normal >60 [facility] Comment on above: Result Comment: mL/m in/1.73m2 CKD-EPI Creatinine Equation (2020) Performed By: #### L 501.9985, L3100.5125, L3300.1750, L500.4050, L506.0400, L506.1001, L501.9520, L509.3001, L3100.5400, L3300.1500, L801.2600 #### [facility] [address] [place], [address] (278) Globulin (S) [Mass/Vol] 3.0 g/dL Normal 2.2-4.2 [facility] Comment on above: Performed By: #### L 501.9985, L3100.5125, L3300.1750, L500.4050, L506.0400, L506.1001, L501.9520, L509.3001, L3100.5400, L3300.1500, L801.2600 #### [facility] [address] [place], [address] Glucose [Mass/Vol] 95 mg/dL Normal 70-99 [facility] Comment on above: Performed By: #### L 501.9985, L3100.5125, L3300.1750, L500.4050, L506.0400, L506.1001, L501.9520, L509.3001, L3100.5400, L3300.1500, L801.2600 #### [facility] [address] [facility] [place], [address] Potassium [Moles/Vol] 4.0 mmol/L Normal 3.3-5.1 [facility] Comment on above: Performed By: #### L 501.9985, L3100.5125, L3300.1750, L500.4050, L506.0400, L506.1001, L501.9520, L509.3001, L3100.5400, L3300.1500, L801.2600 #### [facility] [address] [facility] [place], [address] Sodium [Moles/Vol] 137 mmol/L Normal 133-145 [facility] Comment on above: Performed By: #### L 501.9985, L3100.5125, L3300.1750, L500.4050, L506.0400, L506.1001, L501.9520, L509.3001, L3100.5400, L3300.1500, L801.2600 #### [facility] [address] [facility] [place], [place], [address] T PROT 7.3 g/dL Normal 5.9-8.4 [facility] Comment on above: Performed By: #### L 501.9985, L3100.5125, L3300.1750, L500.4050, L506.0400, L506.1001, L501.9520, L509.3001, L3100.5400, L3300.1500, L801.2600 #### [facility] [address] [place], [place], [address] Urea nitrogen [Mass/Vol] 10 mg/dL Normal 4-19 [facility] Comment on above: Performed By: #### L 501.9985, L3100.5125, L3300.1750, L500.4050, L506.0400, L506.1001, L501.9520, L509.3001, L3100.5400, L3300.1500, L801.2600 #### [facility] [address] [facility] [place], [place], [id number] Estradiolon 04-22-2025 ESTRADIOL 57.3 pg/mL Normal [facility] Comment on above: Result Comment: FEMA LES ADULT FEMALE: Premenopausal: 15-350 pg/mL(E2 levels vary widely through the menstrual cycle) Postmenopausal: <10 pg/mL TRAV STAGES MEAN AGE REFERENCE RANGES Stage I(>14 days and prepubertal) 7.1 years Undetectable-20 pg/mLL Stage II 10.5 years Undetectable-24 pg/mL Stage III 11.6 years Undetectable-60 pg/mL Stage IV 12.3 years 15-85 pg/mL Stage V 14.5 years 15-350 pg/mL Puberty onset (transition from Trav stage I to Trav stage II) occurs for girls at a median age of 10.5 (/- 2) years. There is evidence that it may occur up to 1 year earlier in obese girls and in girls. Progression through Trav stages is variable. Trav stage V (adult) should be reached by age 18. Performed By: #### L 501.9985, L3100.5125, L3300.1750, L500.4050, L506.0400, L506.1001, L501.9520, L509.3001, L3100.5400, L3300.1500, L801.2600 #### [facility] [address] [place], [place], [id number] Follicle Stimulating Hormone on 04-22-2025 FSH 6.3 mIU/mL Normal [facility] Comment on above: Result Comment: FEMA LE: Follicular: 1.4 - 18.1 mIU/mL Midcycle: 3.4 - 33.4 mIU/mL Luteal: 1.5 - 9.1 mIU/mL Post Menopause: 23.0 - 116.3 mIU/mL MALE: 1.4 - 18.1 mIU/mL Performed By: #### L 501.9985, L3100.5125, L3300.1750, L500.4050, L506.0400, L506.1001, L501.9520, L509.3001, L3100.5400, L3300.1500, L801.2600 #### [facility] [address] [place], [place], [id number] Glomerular filtration rate ( GFR) estimation/1.73 sq m using serum, plasma, or whole bOrdered By: Whit Shirley on 04-22-2025 GFR/1.73 sq M.predicted among non-blacks MDRD (S/P/Bld) [Vol rate/Area] 123 mL/min/{1.73_m2} >60 [facility] Comment on above: mL/min/1.73m2 CKD-EP I Creatinine Equation (2020) Hemoglobin A1con 04-22-2025 HbA1c (Bld) [Mass fraction] 5.6 % Normal <=5.6 [facility] Comment on above: Result Comment: Norm al < 5.7 % Prediabetic 5.7 - 6.4 % Diabetic >or= 6.5 % Please note range changes. Performed By: #### L 501.9985, L3100.5125, L3300.1750, L500.4050, L506.0400, L506.1001, L501.9520, L509.3001, L3100.5400, L3300.1500, L801.2600 #### [facility] [address] [place], [address] Hemoglobin A1c percentageOrd ered By: Whit Shirley on 04-22-2025 HbA1c (Bld) [Mass fraction] 5.6 % <5.7 [facility] Comment on above: Normal < 5.7 % Predi abetic 5.7 - 6.4 % Diabetic >or= 6.5 % Please note range changes. L509.3001on 04-22-2025 Testosterone [Mass/Vol] 21.70 ng/dL Normal [facility] Comment on above: Performed By: #### L 501.9985, L3100.5125, L3300.1750, L500.4050, L506.0400, L506.1001, L501.9520, L509.3001, L3100.5400, L3300.1500, L801.2600 #### [facility] [address] [place], [address] Laboratory - Chemistry and C hemistry - challengeOrdered By: Whit Shirley on 04-22-2025 AST [Catalytic activity/Vol] 41 U/L High <32 [facility] Testosterone [Mass/Vol] 21.70 ng/dL [facility] Videotape Editor Office Visit Reporton 04-22-2025 Videotape Editor Office Visit Report [facility] [address], [address] [place] [address] OFFICE VISIT Date of Service: 04/22/25 MR#: [id number] Acct: [id number] Name: JEFFERY ANTHONY Rep #: [id number] : 2000 Provider: SHOAIB Echevarria Age/Sex: 24/F Location: [facility] Status: Signed Intake Vital Signs 03/15/25 16:16 04/22/25 09:24 Height 5 ft 2 in 5 ft 2 in Weight: 348 lb BMI 63.6 BP 132/83 H 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) Chief Complaint: fertility questions, irregular/heavy periods 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: No Is patient in pain?: No Allergies Dihydroaminopryidine Antibiotics Allergy (Intermediate, Verified 04/22/25 09:35) Rash Sulfa (Sulfonamide Antibiotics) Allergy (Mild, Verified 04/22/25 09:35) Other Medications ???Medication ???Instructions ???Recorded ???Confirmed ???Type acetaminophen 325 mg capsule 325 mg PO ONCE PRN 11/21/23 History (Tylenol) Is last menstrual period known: Yes Last Menstrual Period: 04/19/25 Post menopausal: No Patient : No : No Control Method: none PFSH Medical History (Updated 04/22/25 @ 10:29 by SHOAIB Flores) Acute bronchitis History of pneumonia Neuropathy Emotional problems IBS (irritable bowel syndrome) Scoliosis Knee pain Diarrhea Fatigue Shoulder pain Acute hemorrhoid SOB (shortness of breath) Fever Surgical History (Updated 04/22/25 @ 09:35 by Rebekah Mayorga) [place] teeth removed Complication of surgery Hx of tonsillectomy Family History (Updated 04/22/25 @ 09:43 by Rebekah Mayorga) Grandfather Alcoholism Anxiety Depression Grandmother Alcoholism Depression Anxiety Father Alcoholism Depression Anxiety Grandmother Arthritis Diabetes Hormone disorder Ovarian cyst H/O: hysterectomy, Onset Age: 30 Anxiety Depression Grandfather Hypertension High cholesterol Skin cancer Anxiety Depression Mother Anxiety Depression Arthritis Ovarian cyst H/O: hysterectomy, Onset Age: 30 Aunt Anxiety Depression Diabetes Hormone disorder Brain cancer H/O: hysterectomy, Onset Age: 30 Ovarian cyst Social History adopted: No number of children: 0 current occupational status: employed current occupation: [employer] sexually active: Yes Smoking Status: Never smoker alcohol intake: current alcohol intake frequency: holidays/special occasions only substance use type: does not use caffeine: Yes Type: carbonated beverages, coffee and tea eating out: 1-3 times/week during the past year weight has: other details: flucuated- lowest 330lbs highest- 348lbs what type of physical activity do you participate in: walking frequency: daily mendel/uatsdin: None seatbelt use: always do you feel safe at home: Yes additional social history: - [place]. History 2 Elective abortions Hx Para Spontaneous abortions 2 Hx # Term Pregnancies Ectopic pregnancies Hx # Pregnancies Multiple births # of living children 0 HPI Encounter for routine gynecological examination Details: JEFFERY ANTHONY is a 24 year old who presents for annual exam. She is on her menses. She is here today also with questions regarding fertility. She reports she has had a PAP in the past 3 years. Was completed at --we do not have records to review. Last PAP: up to date per pt History of abnormal PAP: no per pt Last mammogram: age 38 History of abnormal mammogram: N/A Colon cancer screening: age 43 Other preventative health care screenings: Steve Martin; PCP. Female Reproductive History Last Menstrual Period: 04/19/25 Cycle Length: 21-35 Bleeding Duration: 5 Questions: metorrhagia: No, sexually active: Yes (no control), dyspareunia: No and PCB: No ROS Const Constitutional: Denies chills, fatigue, fever(s), headache(s) or weight loss Eyes Eyes: Denies change in vision ENT ENT: Denies dizziness Resp Resp: Denies cough GI GI: Denies abdominal pain, constipation or nausea : Denies difficulty voiding, dysuria, hematuria, nipple discharge, pelvic pain, prolapse symptoms, urinary incontinence, vaginal discharge, vaginal dryness, vaginal odor or vaginal pruritus Skin Skin/Breast: Denies alopecia, rash, breast mass, breast pain, breast skin changes or nipple discharge Neuro Neuro: Denies dizziness Psych Psych: Denies anxiety or depression Endo Endo: Denies cold intolerance, excessive sweating or heat intolerance Exam Const General: cooperative, healthy appearing, comfortable, no acute distress, well groomed and well hydrated Nutritional Appearance: well nourished Orientation: alert, awake and oriented x3 HENMT Head: normal to inspection and normoceph (more content not included)... Normal [facility] Potassium measurement (mass/ volume)Ordered By: Whit Shirley on 04-22-2025 Potassium (Unsp spec) [Mass/Vol] 4.0 mmol/L 3.3-5.1 [facility] Serum creatinine measurement (mass/volume)Ordered By: Whit Shirley on 04-22-2025 Creatinine [Mass/Vol] 0.69 mg/dL Low 0.70-1.20 [facility] Serum globulin measurementOr dered By: Whit Shirley on 04-22-2025 Globulin (S) [Mass/Vol] 3.0 g/dL 2.2-4.2 [facility] Serum glucose measurement (m ass/volume)Ordered By: Whit Shirley on 04-22-2025 Glucose [Mass/Vol] 95 mg/dL 70-99 [facility] Serum or plasma alanine mathews otransferase (ALT) measurementOrdered By: Whit Shirley on 04-22-2025 ALT [Catalytic activity/Vol] 61 U/L High <35 [facility] Serum or plasma albumin tulio urement (mass/volume)Ordered By: Whit Shirley on 04-22-2025 Albumin [Mass/Vol] 4.2 g/dL 3.5-5.0 [facility] Serum or plasma albumin/glob ulin mass ratioOrdered By: Whit Shirley on 04-22-2025 Albumin/Globulin [Mass ratio] 1.4 {ratio} 0.9-2.4 [facility] Serum or plasma alkaline yndia sphatase measurementOrdered By: Whit Shirley on 04-22-2025 ALP [Catalytic activity/Vol] 87 U/L 35-104 [facility] Serum or plasma calcium tulio urement (mass/volume)Ordered By: Whit Shirley on 04-22-2025 Calcium [Mass/Vol] 9.2 mg/dL 7.6-11.0 [facility] Serum or plasma estradiol me asurement after follitropin dose (mass/volume)Ordered By: Whit Shirley on 04-22-2025 E2 post dose follitropin [Mass/Vol] 57.3 pg/mL [facility] Comment on above: FEMALES ADULT FEMALE : Premenopausal: 15-350 pg/mL(E2 levels vary widely through the menstrual cycle) Postmenopausal: <10 pg/mL TRAV STAGES MEAN AGE REFERENCE RANGES Stage I(>14 days and prepubertal) 7.1 years Undetectable-20 pg/mLL Stage II 10.5 years Undetectable-24 pg/mL Stage III 11.6 years Undetectable-60 pg/mL Stage IV 12.3 years 15-85 pg/mL Stage V 14.5 years 15-350 pg/mL Puberty onset (transition from Trav stage I to Trav stage II) occurs for girls at a median age of 10.5 (/- 2) years. There is evidence that it may occur up to 1 year earlier in obese girls and in girls.Progression through Trav stages is variable. Trav stage V (adult) should be reached by age 18. Serum or plasma prolactin me asurement (mass/volume)Ordered By: Whit Shirley on 04-22-2025 Prolactin [Mass/Vol] 11.9 ng/mL 4.8-33.4 [facility] Comment on above: Performed at: [place] [id number] Director: David Tai PhD, Phone: [phone] Serum or plasma urea nitroge n measurement (mass/volume)Ordered By: Whit Shirley on 04-22-2025 Urea nitrogen [Mass/Vol] 10 mg/dL 4-19 [facility] Sodium levelOrdered By: Emmanuelle Shirley on 04-22-2025 Sodium [Moles/Vol] 137 mmol/L 133-145 [facility] T4 Free Directon 04-22-2025 T4 FREE DIRECT 0.90 ng/dL Normal 0.76-1.46 [facility] Comment on above: Order Comment: N Performed By: #### L 501.9985, L3100.5125, L3300.1750, L500.4050, L506.0400, L506.1001, L501.9520, L509.3001, L3100.5400, L3300.1500, L801.2600 #### [facility] [address] [place], [address] T4 freeOrdered By: Whit pena on 04-22-2025 Free T4 [Mass/Vol] 0.90 ng/dL 0.76-1.46 [facility] TSH DL <= 0.005 mIU/L QnOrde red By: Whit Shirley on 04-22-2025 TSH Qn 2.000 uIU/mL 0.300-4.200 [facility] Thyroid Stim Hormone (TSH)on 04-22-2025 TSH 2.000 uIU/mL Normal 0.300-4.200 [facility] Comment on above: Performed By: #### L 501.9985, L3100.5125, L3300.1750, L500.4050, L506.0400, L506.1001, L501.9520, L509.3001, L3100.5400, L3300.1500, L801.2600 #### [facility] [address] [place], [place], [phone] Total proteinOrdered By: John Shirley on 04-22-2025 Protein [Mass/Vol] 7.3 g/dL 5.9-8.4 [facility] Vitamin D,25 Hydroxyon 04-22 Vitamin D 25-OH 15.2 ng/mL Low 30-100 [facility] Comment on above: Result Comment: Kendy min D Status Deficiency: <20 ng/mL (50nmol/L) Insufficiency: 20-30 ng/mL (50-75 nmol/L) Sufficiency: 30-100 ng/mL (75-250 nmol/L) Toxicity: >100 ng/mL (>250 nmol/L) Performed By: #### L 501.9985, L3100.5125, L3300.1750, L500.4050, L506.0400, L506.1001, L501.9520, L509.3001, L3100.5400, L3300.1500, L801.2600 #### [facility] [address] [place], [place], [id number] COVID-19, MOLECULARon 2024 SARS-CoV-2 (COVID-19) Ab IA Ql Not detected Normal Not Detected [facility] Comment on above: Result Comment: Test ing was performed using the Pierre ID NOW COVID-19 assay on the ID NOW platform. This test has not been approved for use in asymptomatic patients and its performance in this patient population has not been evaluated. Negative results do not rule out the presence of SARS-CoV-2/COVID-19. ED Prov Noteon 03-10-2025 ED Prov Note ED PROVIDER NOTE [facility] EMERGENCY DEPART[facility] NAME: Jeffery Anthony AGE: 24 y.o. : 2000 VISIT DATE: 03/10/2025 CSN: [id number] PCP: Jarrod Patton DO Chief Complaint Patient presents with Chills Generalized Body Aches 24-year-old patient presents for body aches fevers URI-like symptoms, she been sick for approximate day, has not taken any home medications. Past Medical History: Diagnosis Date Fractures Past Surgical History: Procedure Laterality Date CT COLONOSCOPY 11/24/2022 CT COLONOSCOPY No family history on file. Social History [1] Previous Medications Medication Sig acetaminophen (TYLENOL) 500 MG tablet Take 2 (two) tablets (1,000 mg total) by mouth every 6 (six) hours as needed for pain . arm brace Misc 1 Units by Miscellaneous route daily. diphenhydrAMINE (BENADRYL) 25 mg capsule Take 1 (one) capsule (25 mg total) by mouth every 6 (six) hours as needed for itching . famotidine (PEPCID) 40 MG tablet Take 1 (one) tablet (40 mg total) by mouth daily . fluticasone (FLONASE) 50 mcg/actuation nasal spray HYDROcodone-acetaminophe n (NORCO) 5-325 mg per tablet Take 1 (one) tablet by mouth every 4 (four) hours as needed for pain . loratadine (CLARITIN) 10 mg tablet Take 1 (one) tablet (10 mg total) by mouth daily for 14 days . Allergies[2] Review of Systems All other systems reviewed and are negative. Patient Vitals for the past 24 hrs: BP Temp Temp src Pulse Resp SpO2 Height Weight 03/10/25 0835 (!) 148/111 100 degrees F (37.8 degrees C) Oral (!) 116 18 96 % 5' 2 (!) 154.2 kg (340 lb) Physical Exam Vitals and nursing note reviewed. Constitutional: Appearance: Normal appearance. HENT: Head: Normocephalic and atraumatic. Right Ear: External ear normal. Left Ear: External ear normal. Nose: Nose normal. Mouth/Throat: Mouth: Mucous membranes are moist. Pharynx: Oropharynx is clear. Eyes: Extraocular Movements: Extraocular movements intact. Conjunctiva/sclera: Conjunctivae normal. Pupils: Pupils are equal, round, and reactive to light. Cardiovascular: Rate and Rhythm: Normal rate and regular rhythm. Musculoskeletal: General: Normal range of motion. Cervical back: Normal range of motion and neck supple. Pulmonary: Effort: Pulmonary effort is normal. Breath sounds: Normal breath sounds. Abdominal: General: Abdomen is flat. Bowel sounds are normal. Palpations: Abdomen is soft. Neurological: General: No focal deficit present. Mental Status: She is alert and oriented to person, place, and time. Mental status is at baseline. Psychiatric: Mood and Affect: Mood normal. Thought Content: Thought content normal. Laboratory & Radiographic Imaging (if done): No results found for this visit on 03/10/25. No orders to display Procedures Medical Decision Making Patient presents for uncomplicated URI-like symptoms otherwise well-appearing, no distress, no signs of increased work of breathing, swabs were negative, recommend supportive measures and outpatient follow-up The patient has been informed that they may have pre-hypertension or hypertension based on a blood pressure reading in the Emergency Department. I recommend that the patient call the primary care provider listed on their discharge instructions or a physician of their choice as soon as possible to arrange follow-up in the next 4 weeks for further evaluation of possible pre-hypertension or hypertension. . Clinical Impression: No diagnosis found. ED Disposition None Follow-up Information Follow-up information has not been specified. Contact information for after-discharge care Follow-up information has not been specified. [1] Social History Socioeconomic History Marital status: Tobacco Use Smoking status: Never Vaping Use Vaping status: Unknown Substance and Sexual Activity Alcohol use: No Drug use: Never [2] Allergies Allergen Reactions Sulfacetamide Sodium Rash Jessica Huston MD 03/10/25 0903 AUTHENTICATED BY JESSICA HUSTON, ON 03/10/2025 09:03:[address] [facility] POC INFLUENZA A/B - RALSon 0 03-10-2025 POC INFLUENZA A (FSED) Not detected Normal Not Detecte d [facility] POC INFLUENZA B (FSED) Not detected Normal Not Detecte d [facility] CNOVon 11-23-2024 CNOV Office Visit (OBGYWM ) -------- JEFFERY ANTHONY ([id number]) 2000 F Date Time Provider Department 11/23/24 7:30 AM ANU KAUR OBGYWBarb During your visit today, we recorded the following information about you: Blood pressure Weight Height Last Period 132/86 155.1 kg 1.6 m 11/18/24 Anu Kaur APRN.PRESS PULLER 11/23/2024 8:36 AM Signed Saxophone Teacher offered: Patient declines. Jeffery is a 24 year old who presents for an annual gynecologic exam with complaints, infertility issues- pcos . Patient and her has been trying for . She is having a regular monthly cycle and using ovulation kits that are positive for ovulation. Discussed with patient losing 5 to 10% of body weight can help improve chances of getting and carrying . She has had 2 early miscarriages. Still get period: Yes Bleeding amount bothersome: Yes Bleeding between periods: No Period symptoms: Acne; Breast tenderness; Cramps; Fecal incontinence (inability to control bowel movements); Mood change; Pelvic pain Time with current partner: 6 years Number of lifetime partners: 1 control frequency: Never HPV vaccine: Unsure; HPV:N/A Last pap smear: 2022 normal History of abnormal pap: No, all prior PAP smears have been normal Bothersome pelvic pain: No Last mammogram: never OB History No obstetric history on file. Block Sorter History LMP: 11/18/2024 Age at Menarche: 8 Age at First : Age at Menopause: Block Sorter History Comments: Sexual Activity: No sexual activity data on record; No partner data on record Contraception: No contraception data on record Menstrual Tracking History Flowsheet Row Office Visit from 11/23/2024 in OB/Gynecology Period Cycle (Days) 5 Period Duration (Days) 5 Menstrual Flow Heavy PAST MEDICAL HISTORY Diagnosis Date Seasonal allergies PAST SURGICAL HISTORY Procedure Laterality Date TONSILLECTOMY HX FAMILY HISTORY Problem Relation Age of Onset No Known Problems Mother No Known Problems Father No Known Problems Sister Diabetes Maternal Grandmother Hypertension Maternal Grandfather SOCIAL HISTORY Social History Tobacco Use Smoking status: Never Smokeless tobacco: Never Vaping Use Vaping status: Never Used Substance Use Topics Alcohol use: Never Drug use: Never REVIEW OF SYSTEMS Abdomen: No abdominal pain, nausea, vomiting, diarrhea, or constipation. No bloating, early satiety, indigestion, or increased flatulence. Bladder: No dysuria, gross hematuria, urinary frequency, urinary urgency, or incontinence. Breast: No breast lumps, nipple d/c, overlying skin changes, redness or skin retraction. Allergies and current medication updated:Yes SENSITIVE EXAM: Sensitive exam not performed. EXAM: BP 132/86 Ht 5' 3 (1.60m) Wt 342 lb (155.1kg) LMP 11/18/2024 BMI 60.60 kg/(m2). GENERAL: pleasant, female in no apparent distress HEENT: Normocephalic, atraumatic, mucus membranes moist, and no lesions CHEST: Normal inspiratory effort NEURO: alert and oriented x3,exam grossly non-focal EXTREMITIES: normal Patient declined exam today due to currently on menses ASSESSMENT/PLAN: 1) Health maintenance: Pap/HPV up to date. Mammogram starting age 40. Nutrition, exercise and routine health maintenance exams reviewed. Calcium/Vitamin D supplementation information provided. Colon cancer screening: start at age 45 2) Contraception: none. Contraceptive options reviewed and information provided. 3) STD screening: Declined STD check. 4) Follow up one year or sooner as needed Anu Kaur APRN.BERNARDO Allergies As of Date: 11/23/2024 Noted Allergy Reaction AMOXICILLIN-POT CLAVULANATE 02/07/2017 2 - Rash CEPHALEXIN 09/09/2017 2 - Rash SULFA (SULFONAMIDE ANTIBIOTICS) 2020 2 - Rash Date Reviewed: 11/23/2024 Reviewed by: Anu Kaur APRN.PRESS PULLER - Fully Assessed Reason for Visit: Well Woman [1463] Primary Visit Diagnosis:Encounter for gynecological examination (general) (routine) without abnormal findings [Z01.419] Prescriptions as of 11/23/2024 - acetaminophen (TYLENOL) 325 mg cap Take by mouth three times a day as needed for pain. 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 - ibuprofen (MOTRIN) 200 mg tablet (Discontinued) Take 400 mg by mouth. Disposition: Return in 1 year (on 11/23/2025) for Annual Exam. Follow-up and Disposition History for Encounter Date Provider De (more content not included)... Normal [facility] Prov Noteon 07-24-2024 ED Prov Note HPI: 07/24/2024, Time: @JEANE@ Jeffery Nunes Raj is a 24 y.o. female presenting to the ED for scalp feels very itchy after applying hair dye, beginning 1 day ago. The complaint has been constant, moderate in severity, and worsened by nothing. No alleviating factors. History of similar reaction to other hair dye which required prednisone. No difficulty swallowing or breathing ROS: Pertinent positives and negatives are stated within HPI, all other systems reviewed and are negative. PAST HISTORY Past Medical History: @[facility] Past Surgical History: has a past surgical history that includes CT Colonoscopy (11/24/2022). Social History: reports that she has never smoked. She does not have any smokeless tobacco history on file. She reports that she does not drink alcohol and does not use drugs. Family History: family history is not on file. The patient's home medications have been reviewed. Allergies: Sulfacetamide sodium -- RESULTS - All laboratory and radiology results have been personally reviewed by myself LABS: No results found for this or any previous visit. RADIOLOGY: Interpreted by Radiologist. No orders to display - NURSING NOTES AND VITALS REVIEWED --- The nursing notes within the ED encounter and vital signs as below have been reviewed. BP (!) 157/87 Pulse 94 Temp 98.7 degrees F (37.1 degrees C) Resp 18 Ht 5' 2 Wt (!) 145.2 kg (320 lb) SpO2 95% BMI 58.53 kg/m Oxygen Saturation Interpretation: Normal ---PHYSICAL EXAM Constitutional/General: Alert and oriented x3, well appearing, non toxic in NAD Head: NC/AT Eyes: PERRL, EOMI Mouth: Oropharynx clear, handling secretions, no trismus Neck: Supple, full ROM, no meningeal signs Pulmonary: Lungs clear to auscultation bilaterally, no wheezes, rales, or rhonchi. Not in respiratory distress Cardiovascular: Regular rate and rhythm, no murmurs, gallops, or rubs. 2+ distal pulses Abdomen: Soft, non tender, non distended, Extremities: Moves all extremities x 4. Warm and well perfused Skin: warm and dry without rash Neurologic: GCS 15, Psych: Normal Affect ------ ED COURSE/MEDICAL DECISION MAKING ---- Medications predniSONE (DELTASONE) tablet 60 mg (has no administration in time range) Medical Decision Making: Will provide prednisone and Benadryl Counseling: The emergency provider has spoken with the patient and discussed today's results, in addition to providing specific details for the plan of care and counseling regarding the diagnosis and prognosis. Questions are answered at this time and they are agreeable with the plan. --------- IMPRESSION AND DISPOSITION --------- IMPRESSION 1. Contact dermatitis, unspecified contact dermatitis type, unspecified trigger DISPOSITION Disposition: discharged to home Patient condition is stable Summation Patient Course: Stable ED Medications administered this visit: Medications predniSONE (DELTASONE) tablet 60 mg (has no administration in time range) New Prescriptions from this visit: New Prescriptions predniSONE (DELTASONE) 50 MG tablet Take 1 (one) tablet (50 mg total) by mouth daily for 5 days . diphenhydrAMINE (BENADRYL) 25 mg capsule Take 2 (two) capsules (50 mg total) by mouth every 6 (six) hours as needed for itching . Follow-up: Jarrod Patton, DO [address] [place] [id number] In 1 week Final Impression: 1. Contact dermatitis, unspecified contact dermatitis type, unspecified trigger (Please note that portions of this note were completed with a voice recognition program. Efforts were made to edit the dictations but occasionally words are mis-transcribed.) Andres Palacios MD 07/24/24 1108 AUTHENTICATED BY ANDRES PALACIOS, ON 07/24/2024 11:08:07 [facility] Visit Reporton 0 07-16-2024 Urgent Care Visit Report [facility] [address], [address] [place] [address] OFFICE VISIT Date of Service: 07/16/24 MR#: [id number] Acct: [id number] Name: RAJJEFFERY Rep #: [id number] : 2000 Provider: ILANA Torres Age/Sex: 24/F Location: [facility] Status: Signed Intake Vital Signs 12/05/23 08:13 07/16/24 08:44 Height 5 ft 2 in BP 130/68 H Blood Pressure Location Lt brachial Position Sitting Respiration 16 Pulse 86 Pulse Source NIBP Temp 99.5 F H Temp Source Temporal Pulse Oximetry (%) 96 Oxygen Delivery Method room air Intake Visit Reasons: CONCERN FOR BRONCHITIS Chief Complaint: cough, SOB, fatigue 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: No Is patient in pain?: No Allergies Sulfa (Sulfonamide Antibiotics) Allergy (Mild, Verified 07/16/24 08:45) Other Medications ???Medication ???Instructions ???Recorded ???Confirmed ???Type acetaminophen 325 mg capsule 325 mg PO ONCE PRN 11/21/23 07/16/24 History (Tylenol) azithromycin 250 mg tablet See Rx Instructions PO .COMPLEX #6 07/16/24 07/16/24 Rx tabs methylprednisolone 4 mg tablets in 4 mg PO PER PKG DIR 6 days #21 tabs 07/16/24 07/16/24 Rx a dose pack (Medrol (Asad)) Is last menstrual period known: No Post menopausal: No Patient : No Have you fallen in the past year?: No Nurse's Note: cough, SOB, fatigue x 1 week. viral illness prior, those s/s have resolved. pt reports frequent bronchitis, this feels same to her. states the only thing that works is Zpak and steroid PFSH Medical History Knee pain Diarrhea Fatigue Shoulder pain Acute hemorrhoid SOB (shortness of breath) Fever Surgical History Complication of surgery Hx of tonsillectomy HPI HPI Chief Complaint: cough, SOB, fatigue Details: JEFFERY ANTHONY, is a 24 F who presents to the office today for complaint of cough, congestion and fatigue for the past week. Patient was evaluated and told that she has a viral illness however states that these symptoms did not improve even though the body aches and sore throat did. She states having a history of bronchitis that needs a antibiotic and steroids. She denies hemoptysis or difficulty breathing. No nausea, vomiting or diarrhea. No loss of taste or smell. No other associated symptoms or alleviating/aggravating factors. ROS Const Constitutional: No other (6 system ROS completed with pertinent findings in the HPI otherwise normal.) Exam Const General: cooperative and well developed HENMT Head: normal to inspection and atraumatic Ears: hearing grossly normal bilaterally Nose: nasal discharge clear Face and sinus: normal facial exam Mouth: oral mucosae normal Throat: abnormal tonsil bilaterally hypertrophy 1+ Resp Effort Inspection: normal respiratory effort and no audible wheezes Auscultation: Bilateral: Expiratory Wheezes Cardio Palpation: normal PMI Rate: regular rate Rhythm: regular rhythm Neuro General: patient alert and CN's II-XI intact bilaterally Psych Appearance: grossly normal Mental Status: mental status grossly normal Coding Level of Care Code Off vis,est,level 3 Diagnoses Acute bronchitis J20.9 Assessment and Plan Assessment and Plan (1) Acute bronchitis: Status: Acute Plan: Azithromycin and Medrol Dosepak as prescribed today. Encouraged to get plenty of rest, drink lots of clear liquids, and use Tylenol or Ibuprofen (unless contraindicated) for fever and comfort. Patient also educated on other symptomatic management techniques. To be seen in 7-10 days if no improvement; sooner if worsening of symptoms. Patient advised of potential red flags and when appropriate to report to the ED. Patient verbalized understanding and agreement with all the above. Medications: New azithromycin take 500 mg today (day 1), then 250 mg for 4 days (days 2-5) PO 6 tabs 0RF methylprednisolone (Medrol (Asad)) 4 mg PO PER PKG DIR 21 tabs 0RF 6 days Clinical Quality Measures Falls Risk Screening/Assistive Devices Have you fallen in the past year?: No 07/16/24 0909 Date Luke Rosario Signature: Date (if applicable) CC: Normal [facility] POCT SARS-COV-2/FLU/RSV PCR SYMPTOMATIC manually resultedOrdered By: Mary Lee on 07-13-2024 FLUAV RNA MICHELLE+probe Ql (Resp) Not detected Not Detected [facility] FLUBV RNA MICHELLE+probe Ql (Resp) Not detected Not Detected [facility] RSV RNA MICHELLE+probe Ql (Resp) Not detected Not Detected [facility] SARS-CoV-2 (COVID-19) RNA MICHELLE+probe Ql (Resp) Not detected Not Detected [facility] Arachis hypogaea Ab.IgEon Peanut IgE Qn (S) <0.10 Normal <0.10 [facility] Comment on above: Order Comment: Inter pretation Scale<0.10 kU/L - Class 0 Allergen: ABSENT OR UNDETECTABLE ALLERGEN SPECIFIC IgE0.10-0.34 kU/L - Class 0/1 Allergen: EQUIVOCAL LEVEL OF ALLERGEN SPECIFIC IgE0.35-0.69 kU/L - Class 1 Allergen: LOW LEVEL OF ALLERGEN SPECIFIC IgE0.70-3.49 kU/L - Class 2 Allergen: MODERATE LEVEL OF ALLERGEN SPECIFIC IgE3.50-17.49 kU/L - Class 3 Allergen: HIGH LEVEL OF ALLERGEN SPECIFIC IgE17.50-49.99 kU/L - Class 4 Allergen: VERY HIGH LEVEL OF ALLERGEN SPECIFIC IgE50.00-100.00 kU/L - Class 5 Allergen: ULTRA HIGH LEVEL OF ALLERGEN SPECIFIC IgE>100.00 kU/L - Class 6 Allergen: EXTREMELY HIGH LEVEL OF ALLERGEN SPECIFIC IgE Performed By: #### 2 4323-8 #### BETTENCOURT BARBER ([id number]) [facility] ([facility]) [address] [place] [address] Cow milk IgE Qn (S)on 2023 Milk IgE Qn (S) 0.13 kU/L Invalid Interpretation Code <0.10 [facility] Comment on above: Order Comment: Inter pretation Scale<0.10 kU/L - Class 0 Allergen: ABSENT OR UNDETECTABLE ALLERGEN SPECIFIC IgE0.10-0.34 kU/L - Class 0/1 Allergen: EQUIVOCAL LEVEL OF ALLERGEN SPECIFIC IgE0.35-0.69 kU/L - Class 1 Allergen: LOW LEVEL OF ALLERGEN SPECIFIC IgE0.70-3.49 kU/L - Class 2 Allergen: MODERATE LEVEL OF ALLERGEN SPECIFIC IgE3.50-17.49 kU/L - Class 3 Allergen: HIGH LEVEL OF ALLERGEN SPECIFIC IgE17.50-49.99 kU/L - Class 4 Allergen: VERY HIGH LEVEL OF ALLERGEN SPECIFIC IgE50.00-100.00 kU/L - Class 5 Allergen: ULTRA HIGH LEVEL OF ALLERGEN SPECIFIC IgE>100.00 kU/L - Class 6 Allergen: EXTREMELY HIGH LEVEL OF ALLERGEN SPECIFIC IgE Performed By: #### 2 4323-8 #### BETTENCOURT BARBER ([id number]) [facility] ([facility]) [facility] [place] [address] Egg white Ab.IgEon Egg white IgE Qn (S) <0.10 Normal <0.10 [facility] Comment on above: Order Comment: Inter pretation Scale<0.10 kU/L - Class 0 Allergen: ABSENT OR UNDETECTABLE ALLERGEN SPECIFIC IgE0.10-0.34 kU/L - Class 0/1 Allergen: EQUIVOCAL LEVEL OF ALLERGEN SPECIFIC IgE0.35-0.69 kU/L - Class 1 Allergen: LOW LEVEL OF ALLERGEN SPECIFIC IgE0.70-3.49 kU/L - Class 2 Allergen: MODERATE LEVEL OF ALLERGEN SPECIFIC IgE3.50-17.49 kU/L - Class 3 Allergen: HIGH LEVEL OF ALLERGEN SPECIFIC IgE17.50-49.99 kU/L - Class 4 Allergen: VERY HIGH LEVEL OF ALLERGEN SPECIFIC IgE50.00-100.00 kU/L - Class 5 Allergen: ULTRA HIGH LEVEL OF ALLERGEN SPECIFIC IgE>100.00 kU/L - Class 6 Allergen: EXTREMELY HIGH LEVEL OF ALLERGEN SPECIFIC IgE Performed By: #### 2 4323-8 #### RUT BLANDON ([id number]) [facility] ([facility]) [address] [place] [address] Gadus morhua Ab.IgEon 2023 Codfish IgE Qn (S) <0.10 Normal <0.10 [facility] Comment on above: Order Comment: Inter pretation Scale<0.10 kU/L - Class 0 Allergen: ABSENT OR UNDETECTABLE ALLERGEN SPECIFIC IgE0.10-0.34 kU/L - Class 0/1 Allergen: EQUIVOCAL LEVEL OF ALLERGEN SPECIFIC IgE0.35-0.69 kU/L - Class 1 Allergen: LOW LEVEL OF ALLERGEN SPECIFIC IgE0.70-3.49 kU/L - Class 2 Allergen: MODERATE LEVEL OF ALLERGEN SPECIFIC IgE3.50-17.49 kU/L - Class 3 Allergen: HIGH LEVEL OF ALLERGEN SPECIFIC IgE17.50-49.99 kU/L - Class 4 Allergen: VERY HIGH LEVEL OF ALLERGEN SPECIFIC IgE50.00-100.00 kU/L - Class 5 Allergen: ULTRA HIGH LEVEL OF ALLERGEN SPECIFIC IgE>100.00 kU/L - Class 6 Allergen: EXTREMELY HIGH LEVEL OF ALLERGEN SPECIFIC IgE Performed By: #### 2 4323-8 #### BETTENCOURT BARBER ([id number]) [facility] ([facility]) [facility] [place] [address] Glycine max Ab.IgEon 024 Soybean IgE Qn (S) <0.10 Normal <0.10 [facility] Comment on above: Order Comment: Inter pretation Scale<0.10 kU/L - Class 0 Allergen: ABSENT OR UNDETECTABLE ALLERGEN SPECIFIC IgE0.10-0.34 kU/L - Class 0/1 Allergen: EQUIVOCAL LEVEL OF ALLERGEN SPECIFIC IgE0.35-0.69 kU/L - Class 1 Allergen: LOW LEVEL OF ALLERGEN SPECIFIC IgE0.70-3.49 kU/L - Class 2 Allergen: MODERATE LEVEL OF ALLERGEN SPECIFIC IgE3.50-17.49 kU/L - Class 3 Allergen: HIGH LEVEL OF ALLERGEN SPECIFIC IgE17.50-49.99 kU/L - Class 4 Allergen: VERY HIGH LEVEL OF ALLERGEN SPECIFIC IgE50.00-100.00 kU/L - Class 5 Allergen: ULTRA HIGH LEVEL OF ALLERGEN SPECIFIC IgE>100.00 kU/L - Class 6 Allergen: EXTREMELY HIGH LEVEL OF ALLERGEN SPECIFIC IgE Performed By: #### 2 4323-8 #### RUT BLANDON ([id number]) [facility] ([facility]) [address] [place] [address] IgEon 02-27-2024 IgE Qn 21 IU/mL Normal 0-214 [facility] Comment on above: Performed By: #### 1 9113-0 #### ROCAEL Paniagua ([id number]) [facility] ([facility]) [id number] [place] [address] Juglans spp Ab.IgEon 024 Gillette IgE Qn (S) <0.10 Normal <0.10 [facility] Comment on above: Order Comment: Inter pretation Scale<0.10 kU/L - Class 0 Allergen: ABSENT OR UNDETECTABLE ALLERGEN SPECIFIC IgE0.10-0.34 kU/L - Class 0/1 Allergen: EQUIVOCAL LEVEL OF ALLERGEN SPECIFIC IgE0.35-0.69 kU/L - Class 1 Allergen: LOW LEVEL OF ALLERGEN SPECIFIC IgE0.70-3.49 kU/L - Class 2 Allergen: MODERATE LEVEL OF ALLERGEN SPECIFIC IgE3.50-17.49 kU/L - Class 3 Allergen: HIGH LEVEL OF ALLERGEN SPECIFIC IgE17.50-49.99 kU/L - Class 4 Allergen: VERY HIGH LEVEL OF ALLERGEN SPECIFIC IgE50.00-100.00 kU/L - Class 5 Allergen: ULTRA HIGH LEVEL OF ALLERGEN SPECIFIC IgE>100.00 kU/L - Class 6 Allergen: EXTREMELY HIGH LEVEL OF ALLERGEN SPECIFIC IgE Performed By: #### 2 4323-8 #### BETTENCOURT BARBER ([id number]) [facility] ([facility]) [address] [place] [address] Pandalus borealis Ab.IgEon 0 02-27-2024 Shrimp IgE Qn (S) 0.50 kU/L Invalid Interpretation Code <0.10 [facility] Comment on above: Order Comment: Inter pretation Scale<0.10 kU/L - Class 0 Allergen: ABSENT OR UNDETECTABLE ALLERGEN SPECIFIC IgE0.10-0.34 kU/L - Class 0/1 Allergen: EQUIVOCAL LEVEL OF ALLERGEN SPECIFIC IgE0.35-0.69 kU/L - Class 1 Allergen: LOW LEVEL OF ALLERGEN SPECIFIC IgE0.70-3.49 kU/L - Class 2 Allergen: MODERATE LEVEL OF ALLERGEN SPECIFIC IgE3.50-17.49 kU/L - Class 3 Allergen: HIGH LEVEL OF ALLERGEN SPECIFIC IgE17.50-49.99 kU/L - Class 4 Allergen: VERY HIGH LEVEL OF ALLERGEN SPECIFIC IgE50.00-100.00 kU/L - Class 5 Allergen: ULTRA HIGH LEVEL OF ALLERGEN SPECIFIC IgE>100.00 kU/L - Class 6 Allergen: EXTREMELY HIGH LEVEL OF ALLERGEN SPECIFIC IgE Performed By: #### 2 4323-8 #### BETTENCOURT BARBER ([id number]) [facility] ([facility]) [address] [place] [address] Pecten spp Ab.IgEon 02-27-20 Scallop IgE Qn (S) <0.10 Normal <0.10 [facility] Comment on above: Order Comment: Inter pretation Scale<0.10 kU/L - Class 0 Allergen: ABSENT OR UNDETECTABLE ALLERGEN SPECIFIC IgE0.10-0.34 kU/L - Class 0/1 Allergen: EQUIVOCAL LEVEL OF ALLERGEN SPECIFIC IgE0.35-0.69 kU/L - Class 1 Allergen: LOW LEVEL OF ALLERGEN SPECIFIC IgE0.70-3.49 kU/L - Class 2 Allergen: MODERATE LEVEL OF ALLERGEN SPECIFIC IgE3.50-17.49 kU/L - Class 3 Allergen: HIGH LEVEL OF ALLERGEN SPECIFIC IgE17.50-49.99 kU/L - Class 4 Allergen: VERY HIGH LEVEL OF ALLERGEN SPECIFIC IgE50.00-100.00 kU/L - Class 5 Allergen: ULTRA HIGH LEVEL OF ALLERGEN SPECIFIC IgE>100.00 kU/L - Class 6 Allergen: EXTREMELY HIGH LEVEL OF ALLERGEN SPECIFIC IgE Performed By: #### 2 4323-8 #### RUT BLANDON ([id number]) [facility] ([facility]) [address] [place] [address] Ruditapes spp Ab.IgEon 02-26 Clam IgE Qn (S) <0.10 Normal <0.10 [facility] Comment on above: Order Comment: Inter pretation Scale <0.10 kU/L - Class 0 Allergen: ABSENT OR UNDETECTABLE ALLERGEN SPECIFIC IgE 0.10-0.34 kU/L - Class 0/1 Allergen: EQUIVOCAL LEVEL OF ALLERGEN SPECIFIC IgE 0.35-0.69 kU/L - Class 1 Allergen: LOW LEVEL OF ALLERGEN SPECIFIC IgE 0.70-3.49 kU/L - Class 2 Allergen: MODERATE LEVEL OF ALLERGEN SPECIFIC IgE 3.50-17.49 kU/L - Class 3 Allergen: HIGH LEVEL OF ALLERGEN SPECIFIC IgE 17.50-49.99 kU/L - Class 4 Allergen: VERY HIGH LEVEL OF ALLERGEN SPECIFIC IgE 50.00-100.00 kU/L - Class 5 Allergen: ULTRA HIGH LEVEL OF ALLERGEN SPECIFIC IgE >100.00 kU/L - Class 6 Allergen: EXTREMELY HIGH LEVEL OF ALLERGEN SPECIFIC IgE Performed By: #### 6 076-4 #### ROCAEL Paniagua ([id number]) [facility] ([facility]) [id number] [place] [address] Sesamum indicum Ab.IgEon Sesame Seed IgE Qn (S) <0.10 Normal <0.10 [facility] Comment on above: Order Comment: Inter pretation Scale<0.10 kU/L - Class 0 Allergen: ABSENT OR UNDETECTABLE ALLERGEN SPECIFIC IgE0.10-0.34 kU/L - Class 0/1 Allergen: EQUIVOCAL LEVEL OF ALLERGEN SPECIFIC IgE0.35-0.69 kU/L - Class 1 Allergen: LOW LEVEL OF ALLERGEN SPECIFIC IgE0.70-3.49 kU/L - Class 2 Allergen: MODERATE LEVEL OF ALLERGEN SPECIFIC IgE3.50-17.49 kU/L - Class 3 Allergen: HIGH LEVEL OF ALLERGEN SPECIFIC IgE17.50-49.99 kU/L - Class 4 Allergen: VERY HIGH LEVEL OF ALLERGEN SPECIFIC IgE50.00-100.00 kU/L - Class 5 Allergen: ULTRA HIGH LEVEL OF ALLERGEN SPECIFIC IgE>100.00 kU/L - Class 6 Allergen: EXTREMELY HIGH LEVEL OF ALLERGEN SPECIFIC IgE Performed By: #### 2 4323-8 #### BETTENCOURT BARBER ([id number]) [facility] ([facility]) [address] [place] [address] Triticum aestivum Ab.IgEon 0 02-27-2024 Wheat IgE Qn (S) <0.10 Normal <0.10 [facility] Comment on above: Order Comment: Inter pretation Scale<0.10 kU/L - Class 0 Allergen: ABSENT OR UNDETECTABLE ALLERGEN SPECIFIC IgE0.10-0.34 kU/L - Class 0/1 Allergen: EQUIVOCAL LEVEL OF ALLERGEN SPECIFIC IgE0.35-0.69 kU/L - Class 1 Allergen: LOW LEVEL OF ALLERGEN SPECIFIC IgE0.70-3.49 kU/L - Class 2 Allergen: MODERATE LEVEL OF ALLERGEN SPECIFIC IgE3.50-17.49 kU/L - Class 3 Allergen: HIGH LEVEL OF ALLERGEN SPECIFIC IgE17.50-49.99 kU/L - Class 4 Allergen: VERY HIGH LEVEL OF ALLERGEN SPECIFIC IgE50.00-100.00 kU/L - Class 5 Allergen: ULTRA HIGH LEVEL OF ALLERGEN SPECIFIC IgE>100.00 kU/L - Class 6 Allergen: EXTREMELY HIGH LEVEL OF ALLERGEN SPECIFIC IgE Performed By: #### 2 4331-1 #### RUT BLANDON ([id number]) [facility] ([facility]) [address] [place] [address] Nuvia campos Ab.IgEon 02-27-2024 Denniston IgE Qn (S) <0.10 Normal [facility] Comment on above: Order Comment: Inter pretation Scale<0.10 kU/L - Class 0 Allergen: ABSENT OR UNDETECTABLE ALLERGEN SPECIFIC IgE0.10-0.34 kU/L - Class 0/1 Allergen: EQUIVOCAL LEVEL OF ALLERGEN SPECIFIC IgE0.35-0.69 kU/L - Class 1 Allergen: LOW LEVEL OF ALLERGEN SPECIFIC IgE0.70-3.49 kU/L - Class 2 Allergen: MODERATE LEVEL OF ALLERGEN SPECIFIC IgE3.50-17.49 kU/L - Class 3 Allergen: HIGH LEVEL OF ALLERGEN SPECIFIC IgE17.50-49.99 kU/L - Class 4 Allergen: VERY HIGH LEVEL OF ALLERGEN SPECIFIC IgE50.00-100.00 kU/L - Class 5 Allergen: ULTRA HIGH LEVEL OF ALLERGEN SPECIFIC IgE>100.00 kU/L - Class 6 Allergen: EXTREMELY HIGH LEVEL OF ALLERGEN SPECIFIC IgE Performed By: #### 2 4323-8 #### RUT BLANDON ([id number]) [facility] ([facility]) [address] [place] [address] Comprehensive metabolic 2000 panelon 02-10-2024 Albumin BCP dye [Mass/Vol] 4.3 g/dL Normal 3.4-5.0 [facility] Comment on above: Performed By: #### 2 4323-8 #### RUT BLANDON ([id number]) [facility] ([facility]) [address] [place] [address] ALP [Catalytic activity/Vol] 75 U/L Normal 33-110 [facility] Comment on above: Performed By: #### 2 4323-8 #### RUT BLANDON ([id number]) [facility] ([facility]) [address] [place] [address] ALT With P-5'-P [Catalytic activity/Vol] 41 U/L Normal 7-45 [facility] Comment on above: Result Comment: Mitzy ents treated with Sulfasalazine may generate falsely decreased results for ALT. Performed By: #### 2 4323-8 #### RUT BLANDON ([id number]) [facility] ([facility]) [address] [place] [address] Anion gap [Moles/Vol] 10 mmol/L Normal 10-20 [facility] Comment on above: Performed By: #### 2 4323-8 #### RUT BLANDON ([id number]) [facility] ([facility]) [address] [place] [address] AST With P-5'-P [Catalytic activity/Vol] 29 U/L Normal 9-39 [facility] Comment on above: Performed By: #### 2 432-8 #### RUT BLANDON ([id number]) [facility] ([facility]) [address] [place] [address] Bilirubin [Mass/Vol] 0.5 mg/dL Normal 0.0-1.2 [facility] Comment on above: Performed By: #### 2 432-8 #### RUT BLANDON ([id number]) [facility] ([facility]) [address] [place] [address] Calcium [Mass/Vol] 9.1 mg/dL Normal 8.6-10.3 [facility] Comment on above: Performed By: #### 2 4323-8 #### RUT BLANDON ([id number]) [facility] ([facility]) [address] [place] [address] Chloride [Moles/Vol] 105 mmol/L Normal 98-107 [facility] Comment on above: Performed By: #### 2 4323-8 #### RUT BLANDON ([id number]) [facility] ([facility]) [address] [place] [address] CO2 [Moles/Vol] 28 mmol/L Normal 21-32 [facility] Comment on above: Performed By: #### 2 4323-8 #### RUT BLANDON ([id number]) [facility] ([facility]) [address] [place] [address] Creatinine [Mass/Vol] 0.70 mg/dL Normal 0.50-1.05 [facility] Comment on above: Performed By: #### 2 4323-8 #### RUT BLANDON ([id number]) [facility] ([facility]) [address] [place] [address] GFR/1.73 sq M.predicted MDRD (S/P/Bld) [Vol rate/Area] mL/min/{1.73_m2} Normal >60 [facility] Comment on above: Result Comment: Calc ulations of estimated GFR are performed using the 2020 CKD-EPI Study Refit equation without the race variable for the IDMS-Traceable creatinine methods. https://jasn.asnjournals.org/content/early//ASN.2020 688927 Performed By: #### 2 4323-8 #### RUT BLANDON ([id number]) [facility] ([facility]) [address] [place] [address] Glucose [Mass/Vol] 96 mg/dL Normal 74-99 [facility] Comment on above: Performed By: #### 2 4323-8 #### URT BLANDON ([id number]) [facility] ([facility]) [address] [place] [address] Potassium [Moles/Vol] 4.3 mmol/L Normal 3.5-5.3 [facility] Comment on above: Performed By: #### 2 4323-8 #### RUT BLANDON ([id number]) [facility] ([facility]) [address] [place] [address] Protein [Mass/Vol] 6.5 g/dL Normal 6.4-8.2 [facility] Comment on above: Performed By: #### 2 4323-8 #### RUT BLANDON ([id number]) [facility] ([facility]) [address] [place] [address] Sodium [Moles/Vol] 139 mmol/L Normal 136-145 [facility] Comment on above: Performed By: #### 2 4323-8 #### RUT BLANDON ([id number]) [facility] ([facility]) [address] [place] [address] Urea nitrogen [Mass/Vol] 13 mg/dL Normal 6-23 [facility] Comment on above: Performed By: #### 2 4323-8 #### RUT BLANDON ([id number]) [facility] ([facility]) [address] [place] [address] Dehydroepiandrosteroneon DHEA [Mass/Vol] 2.005 ng/mL Normal 1.330-7.780 [facility] Comment on above: Result Comment: INTERPRETIVE INFORMATION: Dehydroepiandrosterone, Females 18 years and older: Postmenopausal: 0.60-5.73 ng/mL REFERENCE INTERVAL: Dehydroepiandrosterone by TMS Access complete set of age- and/or gender-specific reference intervals for this test in the [facility] Test Directory ([employer]). This test was developed and its performance characteristics determined by [facility]. It has not been cleared or approved by the US Food and Drug Administration. This test was performed in a CLIA certified laboratory and is intended for clinical purposes. Performed By: [facility] [address] [place] [address] Supervisor Sanding: Franklin Simpson MD, PhD CLIA Number: [id number] Performed By: #### 2 193-1 #### [employer] [facility]) ([id number]) [address] [place] [address] Follitropinon 02-10-2024 Follitropin Qn 6.0 IU/L Normal [facility] Comment on above: Result Comment: FSH Ref Values Follicular 2.0-12.0 IU/L Mid-Cycle 12.0-25.0 IU/L Luteal Phase 2.0-12.0 IU/L Menopause 30.0-150.0 IU/L Pre-puberty 50% Adult IU/L Adult Male 2.0-10.0 IU/L Infants 0.0-1.0 IU/L Performed By: #### 1 5067-2 #### ROCAEL Paniagua ([id number]) [facility] ([facility]) [address] [place] [address] HbA1c (Bld) [Mass fraction]o n 02-10-2024 Average glucose Estimated from glycated hemoglobin (Bld) [Mass/Vol] 103 mg/dL Normal Not Established [facility] Comment on above: Order Comment: Diagn osis of Diabetes-Adults Non-Diabetic: < or = 5.6% Increased risk for developing diabetes: 5.7-6.4% Diagnostic of diabetes: > or = 6.5% Monitoring of Diabetes Age (y)....................... Therapeutic Goal (%) Adults: >18.........................<7.0 Pediatrics: 13-18...................<7.5 Pediatrics: 7-12....................<8.0 Pediatrics: 0-6..................... 7.5-8.5 [employer]. Diabetes Care 33(S1), Nov 2009 Performed By: #### 4 548-4 #### BETTENCOURT BARBER ([id number]) [facility] ([facility]) [address] [place] [address] Hemoglobin A1c/Hemoglobin.to rich 02-10-2024 HbA1c (Bld) [Mass fraction] 5.2 % Normal see below [facility] Comment on above: Order Comment: Diagn osis of Diabetes-Adults Non-Diabetic: < or = 5.6% Increased risk for developing diabetes: 5.7-6.4% Diagnostic of diabetes: > or = 6.5% Monitoring of Diabetes Age (y)....................... Therapeutic Goal (%) Adults: >18.........................<7.0 Pediatrics: 13-18...................<7.5 Pediatrics: 7-12....................<8.0 Pediatrics: 0-6..................... 7.5-8.5 [employer]. Diabetes Care 33(S1), Nov 2009 Performed By: #### 4 548-4 #### RUT BLANDON ([id number]) [facility] ([facility]) [address] [place] [address] Insulinon 02-10-2024 Insulin Qn 25 u[IU]/mL Normal - [facility] Comment on above: Order Comment: Refer ence values apply to fasting specimens. Performed By: #### 2 0448-7 #### ROCAEL Paniagua ([id number]) [facility] ([facility]) [id number] [place] [address] Lipid 1996 panelon 4 Cholesterol [Mass/Vol] 238 mg/dL High 0-199 [facility] Comment on above: Result Comment: Age Desirable Borderline High High 0-19 Y 0 - 169 170 - 199 >/= 200 20-24 Y 0 - 189 190 - 224 >/= 225 >24 Y 0 - 199 200 - 239 >/= 240 All ranges are based on fasting samples. Specific therapeutic targets will vary based on patient-specific cardiac risk. Pediatric guidelines reference:Pediatrics 2011, 128(S5).Adult guidelines reference: NCEP ATPIII Guidelines,EVETTE 2001, 258:2486-97 Venipuncture immediately after or during the administration of Metamizole may lead to falsely low results. Testing should be performed immediately prior to Metamizole dosing. Performed By: #### 2 4331-1 #### RUT BLANDON ([id number]) [facility] ([facility]) [address] [place] [address] Cholesterol in HDL [Mass/Vol] 49.0 mg/dL Normal [facility] Comment on above: Result Comment: Age Very Low Low Normal High 0-19 Y < 35 < 40 40-45 ---- 20-24 Y ---- < 40 >45 ---- >24 Y ---- < 40 40-60 >60 Performed By: #### 2 4331-1 #### RUT BLANDON ([id number]) [facility] ([facility]) [facility] [place] [address] Cholesterol in LDL [Mass/Vol] 166 mg/dL High <=119 [facility] Comment on above: Result Comment: Near Borderline AGE Desirable Optimal High High Very High 0-19 Y 0 - 109 --- 110-129 >/= 130 ---- 20-24 Y 0 - 119 --- 120-159 >/= 160 ---- >24 Y 0 - 99 100-129 130-159 160-189 >/=190 Performed By: #### 2 4331-1 #### RUT BLANDON ([id number]) [facility] ([facility]) [address] [place] [id number] Cholesterol in VLDL [Mass/Vol] 23 mg/dL Normal 0-40 [facility] Comment on above: Performed By: #### 2 4331-1 #### RUT BLANDON ([id number]) [facility] ([facility]) [address] [place] [id number] CHOLESTEROL/HDL RATIO 4.9 Normal [facility] [place] Comment on above: Result Comment: Ref Values Desirable < 3.4 High Risk > 5.0 Performed By: #### 2 4331-1 #### RUT BLANDON ([id number]) [facility] ([facility]) [address] [place] [id number] NON HDL CHOLESTEROL 189 mg/dL High 0-149 [facility] Comment on above: Result Comment: Age Desirable Borderline High High Very High 0-19 Y 0 - 119 120 - 144 >/= 145 >/= 160 20-24 Y 0 - 149 150 - 189 >/= 190 ---- >24 Y 30 mg/dL above LDL Cholesterol goal Performed By: #### 2 4331-1 #### RUT BLANDON ([id number]) [facility] ([facility]) [address] [place] [id number] Triglyceride [Mass/Vol] 116 mg/dL Normal 0-149 [facility] Comment on above: Result Comment: Age Desirable Borderline High High Very High 0 D-90 D 19 - 174 ---- ---- ---- 91 D- 9 Y 0 - 74 75 - 99 >/= 100 ---- 10-19 Y 0 - 89 90 - 129 >/= 130 ---- 20-24 Y 0 - 114 115 - 149 >/= 150 ---- >24 Y 0 - 149 150 - 199 200- 499 >/= 500 Venipuncture immediately after or during the administration of Metamizole may lead to falsely low results. Testing should be performed immediately prior to Metamizole dosing. Performed By: #### 2 4331-1 #### RUT BLANDON ([id number]) [facility] ([facility]) [address] [place] [id number] Lutropinon 02-10-2024 Lutropin Qn 3.3 IU/L Normal [facility] Comment on above: Result Comment: LH R eference Values Follicular Phase 1.9-12.5 IU/L Mid-Cycle 8.7-76.3 IU/L Luteal Phase 0.5-16.9 IU/L Post Menopause 5.0-55.2 IU/L Children 0- 6.0 IU/L Adult Male 18-70 years 1.5- 9.3 IU/L Adult Male >70 years 3.1-34.6 IU/L Performed By: #### 1 0501-5 #### ROCAEL Paniagua ([id number]) [facility] ([facility]) [address] [place] [id number] TSH WITH REFLEX TO FREE T4 I F ABNORMALon 02-10-2024 TSH Qn 1.63 m[IU]/L Normal 0.44-3.98 [facility] Comment on above: Order Comment: TSH t esting is performed using different testing methodology at [facility] than at other [facility]. Direct result comparisons should only be made within the same method. Performed By: #### T HYDS #### RUT BLANDON ([id number]) [facility] ([facility]) [address] [place] [address] [place] [address] Provider Note - ED v3 050 Provider Note - ED v3 Provider Note: Chart Review: HISTORY OF PRESENTING ILLNESS JEFFERY is a 22 year old Female and was seen by me at 13-Mar-2023 17:38 for a chief complaint of fall. The historian is the patient. Additional Details: She indicates that she fell backwards while letting her dog out on a leash at home, she slipped on a wet surface and struck her thoracic back region on the corner of a cement step. This per patient knocked the wind out of her but she was able to recover and ultimately is now had persistent pain in this region with bruising. Pain is noted to be heightened with deep inspiration, truncal twisting, she denies any paresthesias affecting upper or lower extremities but does endorse pain radiating around the bra line to the anterior portion of her chest at times. She denies any abdominal pain, notable gross hematuria,s or saddle anesthesia. Triage Information: Most recent Vital Sign Value Date PAST MEDICAL HISTORY ALLERGIES/INTOLERANCES: Allergy Allergen: penicillin Type: Drug Reaction: Unknown Allergen: cephalexin Type: Drug Reaction: Unknown Allergen: amoxicillin Type: Drug Reaction: Unknown Allergen: sulfa drugs Type: Drug Category Reaction: Unknown HEALTH HISTORY: Medical History Name:Anxiety Code:F41.9 Name:Migraines Code:G43.909 Name:IBS (irritable bowel syndrome) Code:K58.9 OUTPATIENT MEDICATIONS: Home Medications Review Status for Reconciliation: Incomplete Med Status: Incomplete Medication History Drug Name: ibuprofen 600 mg oral tablet Instructions: 1 tab(s) orally every 6 hours Drug Name: naproxen 500 mg oral tablet Instructions: 1 tab(s) orally 2 times a day TAKE WITH FOOD AND DRINK Drug Name: baclofen 10 mg oral tablet Instructions: 1 tab(s) orally 2 times a day SIGNIFICANT EVENTS: Other Description:SMOKER NO / ALCOHOL NO PER PT Description:FAMILY HX NEGATIVE Past Medical History Description:NONE Description:ANXIETY/DEPR ESSION Past Surgical History Description:TONSILLECTOM Y REVIEW OF SYSTEMS CONSTITUTIONAL: Negative for: chills, fever and malaise ENMTNose: Negative for: congestion and discharge Throat/Neck: Negative for: throat lesions, throat pain and neck pain CARDIOVASCULAR: Negative for: chest pain RESPIRATORY: POSITIVE for: pleuritic chest pain Negative for: cough, dyspnea, hemoptysis and wheezing GASTROINTESTINAL: Negative for: abdominal pain, diarrhea, nausea and vomiting; MUSCULOSKELETAL: POSITIVE for: back pain Negative for: joint pain, neck pain and pain INTEGUMENTARY: ( Bruising noted to the thoracolumbar region) Negative for: hives; rash NEUROLOGICAL: Negative for: dizziness, headache, loss of function and low extremity numbness; neck stiffness, sensory deficits and upper extremity numbness HEME/LYMPH: Negative for: easy bleeding and easy bruising PHYSICAL EXAM CONSTITUTIONAL: Well appearing WF, ambulatory in office noted without difficulty, well nourished, awake, alert, oriented to person, place, time/situation and in no apparent distress. HENMT: Head Examination: atraumatic Face: no signs of abnormality Ear: - BILATERAL TM's CLEAR Nose: normal inspection Mouth: normal mouth inspection Throat: normal pharynx EYES: Clear bilaterally, pupils equal, round and reactive to light. CARDIOVASCULAR: Normal rate, regular rhythm. Heart sounds S1, S2. No murmurs, rubs or gallops. PMI non-displaced. RESPIRATORY: Breath sounds clear and equal bilaterally. GASTROINTESTINAL: Abdominal Exam: soft, nondistended and no organomegaly Masses: no mass on examination Bowel Sounds Detail: Bowel Sounds: normal Abdominal Tenderness: non-tender (Negative McBurney point tenderness, negative psoas sign negative Rovsing sign, negative CVA tenderness.) Abdominal Guarding: no guarding Rebound: no rebound tenderness MUSCULOSKELETAL: Musculoskeletal Exam: (Ecchymosis noted around L1 - T12 region) Neck Exam: no deformity, pain or tenderness. no restriction of movement Weight Bearing: able Pelvis: stable Spinal Exam: Bruising Location: LUMBAR Deformity Location: none ROM Limitation: WITH ACTIVITY Tenderness Location: THORACIC and LUMBAR Extremity Exam: Left Lower Location: hip Left Lower Findings: normal Right Lower Location: hip Right Lower Findings: normal SKIN: Skin normal color for race, warm, dry and intact. No evidence of trauma. HEME/LYMPH: No adenopathy or splenomegaly. No cervical, supraclavicular or inguinal lymphadenopathy. CRITICAL CARE RESULTS: Radiology Results: Xray Lumbar Spine AP + Lateral [Mar 13 2023 6:39PM] Xray Chest 2 View PA + Lateral [Mar 13 2023 6:37PM] Xray Lumbar Spine AP + Lateral [Mar 13 2023 6:39PM] FINAL REPORT Interpreted by: CASANDRA RAYMOND S, DO 03/13/23 18:36 Facility: [facility] Patient Name: JEFFERY ANTHONY STUDY: SPINE, LUMBOSACRAL; 2 OR 3 VIEWS; ; 03/13/2023 6:28 pm (more content not included)... Normal [facility] CHEST 2 VIEW PA AND LATon CHEST 2 VIEW PA AND LAT Patient Name: JEFFERY ANTHONY STUDY: TH CHEST 2 VIEW PA AND LAT; 03/13/2023 6:28 pm INDICATION: midscapular pain s/p fall . COMPARISON: 07/12/2018 ACCESSION NUMBER(S): [id number] ORDERING CLINICIAN: NICHELLE HSIEH FINDINGS: PA and lateral radiographs of the chest were provided. CARDIOMEDIASTINAL SILHOUETTE: Cardiomediastinal silhouette is normal in size and configuration. LUNGS: Nonspecific bilateral interstitial opacities may be related to overlying soft tissues. No focal consolidation, pleural effusion or sizable pneumothorax seen. ABDOMEN: No remarkable upper abdominal findings. BONES: No acute osseous changes. IMPRESSION: 1. No focal consolidation or sizeable pneumothorax. Electronically signed by: DO Giovanny WORTHINGTON [facility] SPINE, LUMBOSACRAL 2 OR 3 EWSon 03-13-2023 SPINE, LUMBOSACRAL 2 OR 3 VIEWS Patient Name: JEFFERY ANTHONY STUDY: SPINE, LUMBOSACRAL; 2 OR 3 VIEWS; ; 03/13/2023 6:28 pm INDICATION: midscapular & lower back pain s/p fall . COMPARISON: None. ACCESSION NUMBER(S): [id number] ORDERING CLINICIAN: NICHELLE HSIEH FINDINGS: Three views of the lumbar spine Mild to moderate levoscoliosis centered at L3. No evidence of traumatic subluxation identified. Vertebral body heights and disc spaces are otherwise grossly maintained. Mild lower lumbar facet hypertrophy noted. Evaluation partially degraded by patient body habitus. Mild irregularity of the coccyx, age indeterminate. IMPRESSION: Levoscoliosis. No acute osseous abnormality identified. Electronically signed by: DO Giovanny WORTHINGTON [facility] LMPon 01-02-2023 Last menstrual period start date [id number] [facility] [address] Work Phone: Laboratory - Cytologyon 12-12 Cytology report Cyto stain.thin prep Doc (Cvx/Vag) [facility] [address] Work Phone: BILLING AUDITOR - Office Visiton 12-12 BILLING AUDITOR - Office Visit Diagnoses/Problems Health Maintenance/Risks Encounter for preventive health examination (V70.0) (Z00.00) Orders PAP ACCOUNTS PAYABLE OR RECEIVABLE CLERK, Cytology; Status:In Progress - Specimen/Data Collected,Retrospective Authorization; Done: 02Jan2023 Last Menstrual Period (LMP): : 12/23/22 PAP - Site : CERVICAL Cytology Order : ThinPrep PAP, Screening, HPV Reflex - Include Genotyping Provider Impressions Disc. semen analysis and options for f/u here if that is normal pap obtained RTO 1 year and PRN Chief Complaint Patient is here for yearly exam. Patient does self breast exams regularly. LMP 12/23/22 PT STATES SHE HAS BEEN TRYING TO GET FOR A YEAR NOW. History of Present IllnessPt. presents for annual exam Reports nl pap 2019 trying to conceive x 1 year. Pt. reports monthly menses and normal bloodwork with Dr. Linn partner has not had sperm analysis Review of Systems Constitutional: no fever and no chills. Respiratory: no shortness of breath. Active Problems Problems Abnormal uterine bleeding (AUB) (626.9) (N93.9) Acute foot pain, left (729.5) (M79.672) Allergies (995.3) (T78.40XA) Anxiety (300.00) (F41.9) Body mass index (BMI) of 50-59.9 in adult (V85.43) (Z68.43) Constipation (564.00) (K59.00) COVID-19 (079.89) (U07.1) Diarrhea (787.91) (R19.7) Elevated LFTs (790.6) (R79.89) Encounter for preconception consultation (V26.49) (Z31.69) Flu vaccine need (V04.81) (Z23) Iron deficiency (280.9) (E61.1) Irritable bowel syndrome with diarrhea (564.1) (K58.0) Left lower quadrant abdominal pain (789.04) (R10.32) Migraine (346.90) (G43.909) Missed menses (626.4) (N92.6) Morbid obesity with BMI of 50.0-59.9, adult (278.01,V85.43) (E66.01,Z68.43) Alonso neuroma (355.6) (G57.60) 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) Nausea and vomiting (787.01) (R11.2) OAB (overactive bladder) (596.51) (N32.81) Screening for breast cancer (V76.10) (Z12.39) Screening for cervical cancer (V76.2) (Z12.4) Screening for lipid disorders (V77.91) (Z13.220) Screening for STD (sexually transmitted disease) (V74.5) (Z11.3) Seasonal allergies (477.9) (J30.2) Sinus infection (473.9) (J32.9) Sinusitis (473.9) (J32.9) Sore throat (462) (J02.9) Stool incontinence (787.60) (R15.9) Urinary incontinence (788.30) (R32) Women's annual routine gynecological examination (V72.31) (Z01.419) History of Women's annual routine gynecological examination (V72.31) (Z01.419) 11/07/2020-WNL Past Medical History Problems History of Menstruation Onset age 8 years History of Women's annual routine gynecological examination (V72.31) (Z01.419) Resolved Date: 22 Nov 2020 11/07/2020-WNL Surgical History Problems History of Colonoscopy History of Tonsillectomy with adenoidectomy 2018 History of [place] tooth extraction Family History Mother Family history of arthritis (V17.7) (Z82.61) Father Family history of Healthy adult Sister Family history of Healthy adult Grandparent Family history of diabetes mellitus (V18.0) (Z83.3) Family history of hyperlipidemia (V18.19) (Z83.438) Family history of hypertension (V17.49) (Z82.49) Social History Problems Daily caffeine consumption Tea- Denies alcohol consumption (V49.89) (Z78.9) Never a smoker No illicit drug use Sexually active Allergies Medication cephalexin Allergy; Rash; Updated By: Mckenna Yanes; 12/21/2019 10:38:19 AM Penicillins Allergy; Rash; Updated By: Mckenna Yanes; 12/21/2019 10:38:19 AM sulfa Allergy; Rash; Updated By: Mckenna Yanes; 12/21/2019 10:38:19 AM Maple Flavor LIQD Recorded By: Katarzyna Hassan; 12/11/2021 11:57:54 AM NonMedication Alternaria Recorded By: Katarzyna Hassan; 12/11/2021 11:57:54 AM Animal dander - Cats Recorded By: Katarzyna Hassan; 12/11/2021 11:57:54 AM Animal dander - Dogs Recorded By: Katarzyna Hassan; 12/11/2021 11:57:54 AM Animal dander - Horses Recorded By: Katarzyna Hassan; 12/11/2021 11:57:54 AM Birch Recorded By: Katarzyna Hassan; 12/11/2021 11:57:54 AM [place] Recorded By: Katarzyna Hassan; 12/11/2021 11:57:54 AM Dust Allergy; Updated By: Mckenna Yanes; 12/21/2019 10:38:19 AM Dust Mite Recorded By: Katarzyna Hassan; 12/11/2021 11:57:54 AM Elm Recorded By: Katarzyna Hassan; 12/11/2021 11:57:54 AM Grass Recorded By: Katarzyna Hassan; 12/11/2021 11:57:54 AM Mold Allergy; Updated By: Mckenna Yanes; 12/21/2019 10:38:19 AM [place] Recorded By: Katarzyna Hassan; 12/11/2021 11:57:54 AM Nettle Recorded By: Katarzyna Hassan; 12/11/2021 11:57:54 AM Pollen Allergy; Updated By: Mckenna Yanes; 12/21/2019 10:38:19 AM [place] Recorded By: Katarzyna Hassan; 12/11/2021 11:57:54 AM Current Meds Medication NameInstruction Amitriptyline HCl - 50 MG Oral TabletTAKE 1 TABLET AT BEDTIME. hydrOXYzine HCl - 25 MG Oral TabletTAKE 1 TABLET 3 TO 4 TIMES DAILY NEEDED FOR ITCHING. Ibuprofen 800 MG Oral Tablet SUMAtriptan Succinate 50 MG Oral TabletTAKE ONE TABLET BY MOUTH DAILY NEEDED FOR MIGRAINE HEADACH (more content not included)... Normal [facility] COMPREHENSIVE PANELon 2021 Albumin [Mass/Vol] 4.2 g/dL Normal 3.4 - 5.0 [facility] Comment on above: Performed By: #### C MP #### [address] [address] ALP [Catalytic activity/Vol] 69 U/L Normal 33 - 110 [facility] Comment on above: Performed By: #### C MP #### [address] [address] ALT [Catalytic activity/Vol] 74 U/L High 7 - 45 [facility] Comment on above: Result Comment: Mitzy ents treated with Sulfasalazine may generate falsely decreased results for ALT. Performed By: #### C MP #### [address] [address] Anion gap [Moles/Vol] 10 mmol/L Normal 10 - 20 [facility] Comment on above: Performed By: #### C MP #### [address] [address] AST [Catalytic activity/Vol] 48 U/L High 9 - 39 [facility] Comment on above: Performed By: #### C MP #### [address] [address] Bilirubin [Mass/Vol] 0.6 mg/dL Normal 0.0 - 1.2 [facility] Comment on above: Performed By: #### C MP #### [address] [address] Calcium [Mass/Vol] 8.9 mg/dL Normal 8.6 - 10.3 [facility] Comment on above: Performed By: #### C MP #### [address] [address] Chloride [Moles/Vol] 105 mmol/L Normal 98 - 107 [facility] Comment on above: Performed By: #### C MP #### [address] [address] Creatinine [Mass/Vol] 0.65 mg/dL Normal 0.50 - 1.05 [facility] Comment on above: Performed By: #### C MP #### [address] [address] eGFR FEMALE >90 Normal >90 [facility] Comment on above: Result Comment: CALC ULATIONS OF ESTIMATED GFR ARE PERFORMED USING THE 2020 CKD-EPI STUDY REFIT EQUATION WITHOUT THE RACE VARIABLE FOR THE IDMS-TRACEABLE CREATININE METHODS. https://jasn.asnjournals.org/content/early//ASN.2020 964438 Performed By: #### C MP #### [address] [address] Glucose [Mass/Vol] 94 mg/dL Normal 74 - 99 [facility] Comment on above: Performed By: #### C MP #### [address] [address] HCO3 (Bld) [Moles/Vol] 26 mmol/L Normal 21 - 32 [facility] Comment on above: Performed By: #### C MP #### [address] [address] Potassium [Moles/Vol] 3.9 mmol/L Normal 3.5 - 5.3 [facility] Comment on above: Performed By: #### C MP #### [address] [address] Protein [Mass/Vol] 6.6 g/dL Normal 6.4 - 8.2 [facility] Comment on above: Performed By: #### C MP #### [address] [address] Sodium [Moles/Vol] 137 mmol/L Normal 136 - 145 [facility] Comment on above: Performed By: #### C MP #### [address] [address] Urea nitrogen [Mass/Vol] 7 mg/dL Normal 6 - 23 [facility] Comment on above: Performed By: #### C MP #### [address] [address] IRON + TIBCon 04-17-2022 % SATURATION 28 % Normal 25 - 45 [facility] Comment on above: Performed By: #### I RONT #### [address] [address] Iron [Mass/Vol] 82 ug/dL Normal 35 - 150 [facility] Comment on above: Performed By: #### I RONT #### [address] [address] TIBC 292 ug/dL Normal 240 - 445 [facility] Comment on above: Performed By: #### I RONT #### [address] [address] Laboratory - Chemistry and C hemistry - challengeon 04-17-2022 Albumin BCP dye [Mass/Vol] 4.2 g/dL 3.4 - 5.0 [facility] Work Phone: ALP [Catalytic activity/Vol] 69 U/L 33 - 110 [facility] Work Phone: ALT With P-5'-P [Catalytic activity/Vol] 74 U/L above high threshold 7 - 45 [facility] Work Phone: [phone] Comment on above: Patients treated wit h Sulfasalazine may generate falsely decreased results for ALT. Anion gap [Moles/Vol] 10 mmol/L 10 - 20 [facility] Work Phone: AST With P-5'-P [Catalytic activity/Vol] 48 U/L above high threshold 9 - 39 [facility] Work Phone: Bilirubin [Mass/Vol] 0.6 mg/dL 0.0 - 1.2 MP-U [facility] Work Phone: Calcium [Mass/Vol] 8.9 mg/dL 8.6 - 10.3 [facility] Work Phone: Chloride [Moles/Vol] 105 mmol/L 98 - 107 [facility] Work Phone: CO2 [Moles/Vol] 26 mmol/L 21 - 32 [facility] Work Phone: Creatinine [Mass/Vol] 0.65 mg/dL See Below [facility] Work Phone: Comment on above: Reference Range: 0.5 0 - 1.05 Glucose [Mass/Vol] 94 mg/dL 74 - 99 [facility] Work Phone: Iron [Mass/Vol] 82 ug/dL 35 - 150 [facility] Work Phone: Iron binding capacity [Mass/Vol] 292 ug/dL 240 - 445 [facility] Work Phone: Potassium [Moles/Vol] 3.9 mmol/L 3.5 - 5.3 [facility] Work Phone: Protein [Mass/Vol] 6.6 g/dL 6.4 - 8.2 [facility] Work Phone: Sodium [Moles/Vol] 137 mmol/L 136 - 145 [facility] Work Phone: Urea nitrogen [Mass/Vol] 7 mg/dL 6 - 23 [facility] Work Phone: No Panel Informationon 04-17 >90 >90 [facility] Work Phone: Comment on above: CALCULATIONS OF CASSIE MATED GFR ARE PERFORMED USING THE 2020 CKD-EPI STUDY REFIT EQUATION WITHOUT THE RACE VARIABLE FOR THE IDMS-TRACEABLE CREATININE METHODS.https://jasn.asnjournals.org/content// ASN.9048515733 28 % 25 - 45 [facility] Work Phone: Blood Pressure Cuff Sizeon 0 01-15-2022 Adult depression screening assessment Yes [facility] Work Phone: Fall risk assessment a) No falls within the last year [facility] Work Phone: Tobacco use status CPHS b) No M [facility] Work Phone: Blood Pressure Cuff Size Adult [facility] Work Phone: Office Visit (Internal Medic ine)on 01-15-2022 Follow-up visit Diagnoses/Problems Assessed Elevated LFTs (790.6) (R79.89) Iron deficiency (280.9) (E61.1) Orders Elevated LFTs Comprehensive Metabolic Panel; Status:Active; Requested for:15Jan2022; Perform:Lab Services - Lab To Draw (Blood Test); Due:15Apr2022;Ordered; For:Elevated LFTs; Ordered By:Jarrod Patton; Iron deficiency Iron + TIBC, Serum; Status:Active; Requested for:15Jan2022; Perform:Lab Services - Lab To Draw (Blood Test); Due:15Apr2022;Ordered; For:Iron deficiency; Ordered By:Jarrod Patton; Migraine Renew: Amitriptyline HCl - 50 MG Oral Tablet; TAKE 1 TABLET AT BEDTIME Rx By: Jarrod Patton; Dispense: 30 Days ; #:30 Tablet; Refill: 11;For: Migraine; ANA = N; Verified Transmission to [facility]; Last Updated By: NoaCertify; 01/15/2022 8:55:13 PM Provider Impressions 1. Pos home test, negative blood test, late period that did eventually start - possibly that she had a chemical , possible that he home tests were all false positive as well - non the less did discuss that if she gets again how to titrate off amitriptyline by cutting dose in half for 2 weeks then every other day for a week then stop 2. LFTs mildly elevated in the ED but she states she was also having vomiting aid diarrhea at the time so may be elevated from that vs fatty liver, will repeat in a few months 3. F/u in 3-6 mo Chief Complaint 21 y/o female presents for 2 month f/u Medications proposed and verified +Depression screening Adult Risk Screening Initial Fall Risk Screening: JEFFERY has not fallen in the last 6 months. Tobacco Screening: JEFFERY does not use tobacco. History of Present Illness Patient is here today for 2 mo follow up Pt had a late period, she had multiple home tests that were positive. She was concerned that she was with her migraine medications. She has not take any more home tests Blood beta-quant was negative She had been to the ED and her Pelvic us did not show an intrauterine sacs. Review of Systems Genitourinary: late period. Active Problems Problems Abnormal uterine bleeding (AUB) (626.9) (N93.9) Acute foot pain, left (729.5) (M79.672) Allergies (995.3) (T78.40XA) Anxiety (300.00) (F41.9) Body mass index (BMI) of 50-59.9 in adult (V85.43) (Z68.43) Constipation (564.00) (K59.00) COVID-19 (079.89) (U07.1) Diarrhea (787.91) (R19.7) Encounter for preconception consultation (V26.49) (Z31.69) Flu vaccine need (V04.81) (Z23) Irritable bowel syndrome with diarrhea (564.1) (K58.0) Left lower quadrant abdominal pain (789.04) (R10.32) Migraine (346.90) (G43.909) Missed menses (626.4) (N92.6) Morbid obesity with BMI of 50.0-59.9, adult (278.01,V85.43) (E66.01,Z68.43) Alonso neuroma (355.6) (G57.60) 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) Nausea and vomiting (787.01) (R11.2) OAB (overactive bladder) (596.51) (N32.81) Screening for breast cancer (V76.10) (Z12.39) Screening for cervical cancer (V76.2) (Z12.4) Screening for lipid disorders (V77.91) (Z13.220) Screening for STD (sexually transmitted disease) (V74.5) (Z11.3) Seasonal allergies (477.9) (J30.2) Sinus infection (473.9) (J32.9) Sinusitis (473.9) (J32.9) Sore throat (462) (J02.9) Stool incontinence (787.60) (R15.9) Urinary incontinence (788.30) (R32) Women's annual routine gynecological examination (V72.31) (Z01.419) History of Women's annual routine gynecological examination (V72.31) (Z01.419) 11/07/2020-WNL Past Medical History Problems History of Menstruation Onset age 8 years History of Women's annual routine gynecological examination (V72.31) (Z01.419) Resolved Date: 22 Nov 2020 11/07/2020-WNL Surgical History Problems History of Colonoscopy History of Tonsillectomy with adenoidectomy 2018 History of [place] tooth extraction Family History Mother Family history of arthritis (V17.7) (Z82.61) Father Family history of Healthy adult Sister Family history of Healthy adult Grandparent Family history of diabetes mellitus (V18.0) (Z83.3) Family history of hyperlipidemia (V18.19) (Z83.438) Family history of hypertension (V17.49) (Z82.49) Social History Problems Daily caffeine consumption Tea- Denies alcohol consumption (V49.89) (Z78.9) Never a smoker No illicit drug use Sexually active Allergies Medication cephalexin Allergy; Rash; Updated By: Mckenna Yanes; 12/21/2019 10:38:19 AM Penicillins Allergy; Rash; Updated By: Mckenna Yanes; 12/21/2019 10:38:19 AM sulfa Allergy; Rash; Updated By: Mckenna Yanes; 12/21/2019 10:38:19 AM Maple Flavor LIQD Recorded By: Katarzyna Hassan; 12/11/2021 11:57:54 AM NonMedication Alternaria Recorded By: Katarzyna Hassan; 12/11/2021 11:57:54 AM Animal dander - Cats Recorded By: Katarzyna Hassan; 12/11/2021 11:57:54 AM Animal dander - Dogs Recorded By: Katarzyna Hassan; 12/11/2021 11:57:54 AM Animal dander - Horses Recorded By: Sneha Hassan (more content not included)... Normal [facility] Blood Typing (ABO + Rho D)on 01-11-2022 ABO group Nom (Bld) O [facility] Work Phone: [phone] Rh immune globulin screen (Bld) [Interp] Positive [facility] Work Phone: Complete Blood Count + Diffe rentialon 01-11-2022 Basophils/100 WBC (Bld) 0.7 % 0.0 - 2.0 M [facility] Work Phone: Erythrocyte distribution width (RBC) [Ratio] 13.0 % See Below [facility] Work Phone: Comment on above: Reference Range: 11. 5 - 14.5 Hematocrit (Bld) [Volume fraction] 44.1 % See Below [facility] Work Phone: Comment on above: Reference Range: 36. 0 - 46.0 Hemoglobin (Bld) [Mass/Vol] 14.6 g/dL See Below [facility] Work Phone: Comment on above: Reference Range: 12. 0 - 16.0 Lymphocytes/100 WBC (Bld) 39.9 % See Below [facility] Work Phone: Comment on above: Reference Range: 13. 0 - 44.0 MCHC (RBC) [Mass/Vol] 33.2 g/dL See Below [facility] Work Phone: Comment on above: Reference Range: 32. 0 - 36.0 MCV (RBC) [Entitic vol] 91 fL 80 - 100 M [facility] Work Phone: Monocytes/100 WBC (Bld) 7.8 % 2.0 - 10.[address] [facility] Work Phone: Neutrophils/100 WBC (Bld) 50.0 % See Below [facility] Work Phone: Comment on above: Reference Range: 40. 0 - 80.0 Platelets (Bld) [#/Vol] 374 10*3/uL 150 - 450 [facility] Work Phone: [phone] RBC (Bld) [#/Vol] 4.84 {x10E12/L} See Below [facility] Work Phone: Comment on above: Reference Range: 4.0 0 - 5.20 WBC (Bld) [#/Vol] 8.8 10*3/uL 4.4 - 11.3 [facility] Work Phone: Complete Blood Count + Differential 0.10 {x10E9/L} See Below [facility] Work Phone: Comment on above: Reference Range: 0.0 0 - 0.10 Reference Range: 0.0 0 - 0.70 Complete Blood Count + Differential 0.70 {x10E9/L} See Below [facility] Work Phone: Comment on above: Reference Range: 0.1 0 - 1.00 Complete Blood Count + Differential 3.50 {x10E9/L} See Below [facility] Work Phone: Comment on above: Reference Range: 1.2 0 - 4.80 Complete Blood Count + Differential 4.40 {x10E9/L} See Below [facility] Work Phone: Comment on above: Reference Range: 1.2 0 - 7.70 Percent differential counts (%) should be interpreted in the context of the absolute cell counts (cells/L). Complete Blood Count + Differential 1.6 % 0.0 - 6.0 [facility] Work Phone: Complete Blood Count + Differential 0.2 {/100_WBC} [facility] Work Phone: HCG, Beta Quantitativeon HCG.beta subunit Qn m[IU]/mL [facility] Work Phone: Comment on above: Low-level positive CG results can be seen in early , in kannan- or post-menopausal females due to normal pituitary HCG production, or with analytic interference. Repeat testing in 48-72 hours can aid in assessing for as results should double in this time period. FSH measurement is recommended in kannan- or post-menopausal females as concurrent elevation of FSH can support pituitary production as the source of the HCG elevation.. Total HCG measurement is performed using the [place] Access Immunoassay which detects intact HCG and free beta HCG subunit. This test is not indicated for use as a tumor marker. HCG testing is performed using a different test methodology at [facility] than other [facility]. Direct result comparison should only be made within the same method. REF VALUESNON FEMALE <5MALES <5 Laboratory - Chemistry and C hemistry - challengeon 01-11-2022 Albumin BCP dye [Mass/Vol] 4.1 g/dL 3.4 - 5.0 [facility] Work Phone: ALP [Catalytic activity/Vol] 69 U/L 33 - 110 [facility] Work Phone: ALT With P-5'-P [Catalytic activity/Vol] 89 U/L above high threshold 7 - 45 [facility] Work Phone: Comment on above: Patients treated wit Sulfasalazine may generate falsely decreased results for ALT. Anion gap [Moles/Vol] 18 mmol/L 10 - 20 [facility] Work Phone: AST With P-5'-P [Catalytic activity/Vol] 46 U/L above high threshold 9 - 39 [facility] Work Phone: Bilirubin [Mass/Vol] 0.3 mg/dL 0.0 - 1.2 [facility] Work Phone: Calcium [Mass/Vol] 8.7 mg/dL 8.6 - 10.3 [facility] Work Phone: Chloride [Moles/Vol] 104 mmol/L 98 - 107 [facility] Work Phone: CO2 [Moles/Vol] 20 mmol/L below low threshold 21 - 32 [facility] Work Phone: Creatinine [Mass/Vol] 0.70 mg/dL See Below [facility] Work Phone: Comment on above: Reference Range: 0.5 0 - 1.05 Glucose [Mass/Vol] 97 mg/dL 74 - 99 [facility] Work Phone: Potassium [Moles/Vol] 3.9 mmol/L 3.5 - 5.3 [facility] Work Phone: Protein [Mass/Vol] 6.8 g/dL 6.4 - 8.2 [facility] Work Phone: Sodium [Moles/Vol] 138 mmol/L 136 - 145 [facility] Work Phone: Urea nitrogen [Mass/Vol] 15 mg/dL 6 - 23 [facility] Work Phone: No Panel Informationon 01-11 Normal [facility] Work Phone: >90 >90 [facility] Work Phone: Comment on above: CALCULATIONS OF CASSIE MATED GFR ARE PERFORMED USING THE 2020 CKD-EPI STUDY REFIT EQUATION WITHOUT THE RACE VARIABLE FOR THE IDMS-TRACEABLE CREATININE METHODS.https://jasn.asnjournals.org/content/early/ ASN.6254942127 Complete Blood Count + Diffe rentialon 01-04-2022 Basophils/100 WBC (Bld) 0.4 % 0.0 - 2.0 M [facility] Work Phone: [phone] Erythrocyte distribution width (RBC) [Ratio] 13.3 % See Below [facility] Work Phone: [phone] Comment on above: Reference Range: 11. 5 - 14.5 Hematocrit (Bld) [Volume fraction] 44.5 % See Below [facility] Work Phone: [phone] Comment on above: Reference Range: 36. 0 - 46.0 Hemoglobin (Bld) [Mass/Vol] 15.2 g/dL See Below [facility] Work Phone: [phone] Comment on above: Reference Range: 12. 0 - 16.0 Lymphocytes/100 WBC (Bld) 40.9 % See Below [facility] Work Phone: [phone] Comment on above: Reference Range: 13. 0 - 44.0 MCHC (RBC) [Mass/Vol] 34.1 g/dL See Below [facility] Work Phone: [phone] Comment on above: Reference Range: 32. 0 - 36.0 MCV (RBC) [Entitic vol] 90 fL 80 - 100 M [facility] Work Phone: [phone] Monocytes/100 WBC (Bld) 9.1 % 2.0 - 10.0 M [facility] Work Phone: [phone] Neutrophils/100 WBC (Bld) 48.1 % See Below [facility] Work Phone: [phone] Comment on above: Reference Range: 40. 0 - 80.0 Platelets (Bld) [#/Vol] 359 10*3/uL 150 - 450 [facility] Work Phone: [phone] RBC (Bld) [#/Vol] 4.92 {x10E12/L} See Below [facility] Work Phone: [phone] Comment on above: Reference Range: 4.0 0 - 5.20 WBC (Bld) [#/Vol] 6.1 10*3/uL 4.4 - 11.3 [facility] Work Phone: Complete Blood Count + Differential 0.00 {x10E9/L} See Below [facility] Work Phone: Comment on above: Reference Range: 0.0 0 - 0.10 Complete Blood Count + Differential 0.10 {x10E9/L} See Below [facility] Work Phone: Comment on above: Reference Range: 0.0 0 - 0.70 Complete Blood Count + Differential 0.60 {x10E9/L} See Below [facility] Work Phone: Comment on above: Reference Range: 0.1 0 - 1.00 Complete Blood Count + Differential 2.50 {x10E9/L} See Below [facility] Work Phone: Comment on above: Reference Range: 1.2 0 - 4.80 Complete Blood Count + Differential 2.90 {x10E9/L} See Below [facility] Work Phone: Comment on above: Reference Range: 1.2 0 - 7.70 Percent differential counts (%) should be interpreted in the context of the absolute cell counts (cells/L). Complete Blood Count + Differential 1.5 % 0.0 - 6.0 [facility] Work Phone: Complete Blood Count + Differential 0.1 {/100_WBC} [facility] Work Phone: HCG, Beta Quantitativeon HCG.beta subunit Qn m[IU]/mL [facility] Work Phone: Comment on above: Low-level positive H CG results can be seen in early , in kannan- or post-menopausal females due to normal pituitary HCG production, or with analytic interference. Repeat testing in 48-72 hours can aid in assessing for as results should double in this time period. FSH measurement is recommended in kannan- or post-menopausal females as concurrent elevation of FSH can support pituitary production as the source of the HCG elevation.. Total HCG measurement is performed using the [place] Access Immunoassay which detects intact HCG and free beta HCG subunit. This test is not indicated for use as a tumor marker. HCG testing is performed using a different test methodology at [facility] than other [facility]. Direct result comparison should only be made within the same method. REF VALUESNON FEMALE <5MALES <5 Laboratory - Chemistry and C hemistry - challengeon 01-04-2022 Albumin BCP dye [Mass/Vol] 4.5 g/dL 3.4 - 5.0 [facility] Work Phone: [phone] ALP [Catalytic activity/Vol] 68 U/L 33 - 110 [facility] Work Phone: [phone] ALT With P-5'-P [Catalytic activity/Vol] 102 U/L above high threshold 7 - 45 [facility] Work Phone: [phone] Comment on above: Patients treated wit h Sulfasalazine may generate falsely decreased results for ALT. Anion gap [Moles/Vol] 12 mmol/L 10 - 20 [facility] Work Phone: [phone] AST With P-5'-P [Catalytic activity/Vol] 68 U/L above high threshold 9 - 39 [facility] Work Phone: [phone] Bilirubin [Mass/Vol] 0.6 mg/dL 0.0 - 1.2 [facility] Work Phone: [phone] Calcium [Mass/Vol] 8.8 mg/dL 8.6 - 10.3 [facility] Work Phone: [phone] Chloride [Moles/Vol] 105 mmol/L 98 - 107 [facility] Work Phone: [phone] CO2 [Moles/Vol] 26 mmol/L 21 - 32 [facility] Work Phone: [phone] Creatinine [Mass/Vol] 0.76 mg/dL See Below [facility] Work Phone: [phone] Comment on above: Reference Range: 0.5 0 - 1.05 Glucose [Mass/Vol] 83 mg/dL 74 - 99 [facility] Work Phone: Potassium [Moles/Vol] 3.7 mmol/L 3.5 - 5.3 [facility] Work Phone: Protein [Mass/Vol] 7.4 g/dL 6.4 - 8.2 [facility] Work Phone: Sodium [Moles/Vol] 139 mmol/L 136 - 145 [facility] Work Phone: Urea nitrogen [Mass/Vol] 12 mg/dL 6 - 23 [facility] Work Phone: Lipid Panelon 01-04-2022 Cholesterol [Mass/Vol] 218 mg/dL above hig h threshold 0 - 199 [facility] Work Phone: Comment on above: . AGE DESIRABLE BORD MELODY HIGH HIGH 0-19 Y 0 - 169 170 - 199 >/= 200 20-24 Y 0 - 189 190 - 224 >/= 225 >24 Y 0 - 199 200 - 239 >/= 240 All ranges are based on fasting samples. Specific therapeutic targets will vary based on patient-specific cardiac risk.. Pediatric guidelines reference:Pediatrics 2011, 128(S5). Adult guidelines reference: NCEP ATPIII Guidelines, EVETTE 2001, 258:2486-97. Venipuncture immediately after or during the administration of Metamizole may lead to falsely low results. Testing should be performed immediately prior to Metamizole dosing. Cholesterol in HDL [Mass/Vol] 55.0 mg/dL [facility] Work Phone: Comment on above: . AGE VERY LOW LOW N ORMAL HIGH 0-19 Y < 35 < 40 40-45 ---- 20-24 Y ---- < 40 >45 ---- >24 Y ---- < 40 40-60 >60. Cholesterol in LDL [Mass/Vol] 140 mg/dL above high threshold 0 - 119 [facility] Work Phone: Comment on above: . NEAR BORD AGE RICHARDSON RABLE OPTIMAL HIGH HIGH VERY HIGH 0-19 Y 0 - 109 --- 110-129 >/= 130 ---- 20-24 Y 0 - 119 --- 120-159 >/= 160 ---- >24 Y 0 - 99 100-129 130-159 160-189 >/=190. Cholesterol non HDL [Mass/Vol] 163 mg/dL above high threshold 0 - 149 [facility] Work Phone: Comment on above: AGE DESIRABLE BORDER LINE HIGH HIGH VERY HIGH 0-19 Y 0 - 119 120 - 144 >/= 145 >/= 160 20-24 Y 0 - 149 150 - 189 >/= 190 ---- >24 Y 30 MG/DL ABOVE LDL CHOLESTEROL GOAL. Cholesterol.total/Kellen sterol in HDL [Mass ratio] 4.0 {ratio} [facility] Work Phone: Comment on above: REF VALUESDESIRABLE < 3.4HIGH RISK > 5.0 Triglyceride [Mass/Vol] 117 mg/dL 0 - 149 M [facility] Work Phone: Comment on above: . AGE DESIRABLE BORD MELODY HIGH HIGH VERY HIGH 0 D-90 D 19 - 174 ---- ---- ----91 D- 9 Y 0 - 74 75 - 99 >/= 100 ---- 10-19 Y 0 - 89 90 - 129 >/= 130 ---- 20-24 Y 0 - 114 115 - 149 >/= 150 ---- >24 Y 0 - 149 150 - 199 200- 499 >/= 500. Venipuncture immediately after or during the administration of Metamizole may lead to falsely low results. Testing should be performed immediately prior to Metamizole dosing. Lipid Panel 23 mg/dL 0 - 40 [facility] Work Phone: No Panel Informationon 01-04 >90 >90 [facility] Work Phone: Comment on above: CALCULATIONS OF CASSIE MATED GFR ARE PERFORMED USING THE 2020 CKD-EPI STUDY REFIT EQUATION WITHOUT THE RACE VARIABLE FOR THE IDMS-TRACEABLE CREATININE METHODS.https://jasn.asnjournals.org/content// ASN.7871292058 Blood Pressure Cuff Sizeon 0 12-05-2021 Adult depression screening assessment No [facility] Work Phone: Fall risk assessment a) No falls within the last year [facility] Work Phone: Tobacco use status [facility] b) No M [facility] Work Phone: Blood Pressure Cuff Size Adult [facility] Work Phone: LMPon 12-05-2021 Fall risk assessment a) No falls within the last year [facility] Work Phone: [phone] Last menstrual period start date 13Nov2021 [facility] Work Phone: Tobacco use status [facility] b) No M [facility] Work Phone: MRI Brain without Contraston 10-26-2021 MR Brain WO contrast Normal [facility] Work Phone: Blood Pressure Cuff Sizeon 1 12-09-2020 Fall risk assessment a) No falls within the last year [facility] Work Phone: Tobacco use status [facility] b) No M [facility] Work Phone: Blood Pressure Cuff Size Adult [facility] Work Phone: Blood Pressure Cuff Sizeon 0 08-01-2021 Fall risk assessment a) No falls within the last year [facility] Work Phone: Tobacco use status [facility] b) No M [facility] Work Phone: Blood Pressure Cuff Size Adult [facility] Work Phone: Radiologyon 07-19-2021 XR Foot 3 Views Normal [facility] Work Phone: Tobacco Screening.on Last menstrual period start date 27Apr2021 [facility] Work Phone: Tobacco use status [facility] b) No [facility] Work Phone: Radiologyon 04-16-2021 XR Nasal bones 3 Views Normal [facility] Work Phone: Cult, Urineon 12-07-2020 Bacteria identified Cx Nom (U) PATIENT: JEFFERY CORONEL LOCATION: [facility]#: [id number] : 89 AGE: SEX: F ORDERED BY: CLINT MORTON: URINE COLLECTED: 12/07/20 10:50ANTIBIOTICS AT NAS.: RECEIVED : 12/07/20 23:28SITE: Clean Catch/Voided R E S U L T S URINE CULTURE,BACTERIAL FINAL 12/08/20 16:53 NO SIGNIFICANT GROWTH. [facility] 0 DO Work Phone: Blood Typing (ABO + Rho D)on 12-04-2020 ABO group Nom (Bld) O [facility] 0 DO Work Phone: Comment on above: Ordering Provider: Annalise MORRIS [id number] Rh immune globulin screen (Bld) [Interp] Positive [facility] 0 DO Work Phone: Comment on above: Ordering Provider: Annalise MORRIS 55174 Complete Blood Count + Diffe rentialon 12-04-2020 Basophils (Bld) [#/Vol] 0.00 {x10E9/L} See Belo w [facility] 0 DO Work Phone: Comment on above: Reference Range: 0.0 0 - 0.10 Ordering Provider: Annalise MORRIS 50190 Basophils/100 WBC (Bld) 0.4 % 0.0 - 2.0 M [facility] 2420 DO Work Phone: Comment on above: Ordering Provider: Annalise MORRIS 15829 Eosinophils (Bld) [#/Vol] 0.10 {x10E9/L} See Below [facility] 2420 DO Work Phone: Comment on above: Reference Range: 0.0 0 - 0.70 Ordering Provider: Annalise MORRIS 00214 Eosinophils/100 WBC (Bld) 1.7 % 0.0 - 6.0 [facility] 2420 DO Work Phone: Comment on above: Ordering Provider: Annalise MORRIS 02187 Erythrocyte distribution width (RBC) [Ratio] 13.3 % See Below [facility]20 DO Work Phone: Comment on above: Reference Range: 11. 5 - 14.5 Ordering Provider: Annalise MORRIS 35313 Hematocrit (Bld) [Volume fraction] 44.2 % See Below [facility]20 DO Work Phone: Comment on above: Reference Range: 36. 0 - 46.0 Ordering Provider: Annalise MORRIS 95593 Hemoglobin (Bld) [Mass/Vol] 14.6 g/dL See Below [facility]20 DO Work Phone: Comment on above: Reference Range: 12. 0 - 16.0 Ordering Provider: Annalise Munoz Lymphocytes (Bld) [#/Vol] 2.40 {x10E9/L} See Below [facility]20 DO Work Phone: Comment on above: Reference Range: 1.2 0 - 4.80 Ordering Provider: Annalise Torres982 Lymphocytes/100 WBC (Bld) 33.4 % See Below [facility]20 DO Work Phone: Comment on above: Reference Range: 13. 0 - 44.0 Ordering Provider: Annalise MORRIS 40313 MCHC (RBC) [Mass/Vol] 33.2 g/dL See Below [facility] 2420 DO Work Phone: Comment on above: Reference Range: 32. 0 - 36.0 Ordering Provider: Annalise MORRIS 54623 MCV (RBC) [Entitic vol] 90 fL 80 - 100 [facility] 2420 DO Work Phone: Comment on above: Ordering Provider: Annalise MORRIS 01999 Monocytes (Bld) [#/Vol] 0.60 {x10E9/L} See Belo w [facility] 2420 DO Work Phone: Comment on above: Reference Range: 0.1 0 - 1.00 Ordering Provider: Annalise MORRIS 89767 Monocytes/100 WBC (Bld) 8.2 % 2.0 - 10.0 M [facility] 2420 DO Work Phone: Comment on above: Ordering Provider: Annalise MORRIS 62400 Neutrophils (Bld) [#/Vol] 4.10 {x10E9/L} See Below [facility] 2420 DO Work Phone: Comment on above: Reference Range: 1.2 0 - 7.70 Percent differential counts (%) should be interpreted in the context of the absolute cell counts (cells/L). Ordering Provider: Annalise MORRIS 17311 Neutrophils/100 WBC (Bld) 56.3 % See Below [facility] 2420 DO Work Phone: Comment on above: Reference Range: 40. 0 - 80.0 Ordering Provider: Annalise MORRIS 65430 Platelets (Bld) [#/Vol] 399 {x10E9/L} 150 - 450 [facility] 2420 DO Work Phone: Comment on above: Ordering Provider: Annalise MORRIS 92139 RBC (Bld) [#/Vol] 4.93 {x10E12/L} See Below [facility] 2420 DO Work Phone: Comment on above: Reference Range: 4.0 0 - 5.20 Ordering Provider: Annalise MUNGUIAGREGORY 37474 WBC (Bld) [#/Vol] 7.3 {x10E9/L} 4.4 - 11.3 [facility] 2420 DO Work Phone: Comment on above: Ordering Provider: Annalise MUNGUIAGREGORY 16274 HCG, Beta Quantitativeon HCG.beta subunit Qn m[IU]/mL [facility] 2420 DO Work Phone: Comment on above: Low-level positive H CG results can be seen in early , in kannan- or post-menopausal females due to normal pituitary HCG production, or with analytic interference. Repeat testing in 48-72 hours can aid in assessing for as results should double in this time period. FSH measurement is recommended in kannan- or post-menopausal females as concurrent elevation of FSH can support pituitary production as the source of the HCG elevation.. Total HCG measurement is performed using the [employer] [place] Access Immunoassay which detects intact HCG and free beta HCG subunit. This test is not indicated for use as a tumor marker. HCG testing is performed using a different test methodology at [facility] than other [facility]. Direct result comparison should only be made within the same method. REF VALUESNON FEMALE <5MALES <5 Ordering Provider: Annalise CHANDLER ALEXANDRA 50549 Metabolic Panelon 12-04-2020 Anion gap [Moles/Vol] 11 mmol/L 10 - 20 [facility] 2420 DO Work Phone: Comment on above: Ordering Provider: Annalise CHANDLER ALEXANDRA 02786 Calcium [Mass/Vol] 8.7 mg/dL 8.6 - 10.3 [facility] 2420 DO Work Phone: Comment on above: Ordering Provider: Annalise PETERSONNadja MORRIS 62636 Chloride [Moles/Vol] 106 mmol/L 98 - 107 [facility] 2420 DO Work Phone: Comment on above: Ordering Provider: Annalise MUNGUIAGREGORY 12010 CO2 [Moles/Vol] 24 mmol/L 21 - 32 [facility] 2420 DO Work Phone: Comment on above: Ordering Provider: Annalise MUNGUIAGREGORY 06339 Creatinine [Mass/Vol] 0.84 mg/dL See Below [facility] 2420 DO Work Phone: Comment on above: Reference Range: 0.5 0 - 1.05 Ordering Provider: Annalise RAMESH MORRIS 75968 Glucose [Mass/Vol] 94 mg/dL 74 - 99 [facility] 2420 DO Work Phone: Comment on above: Ordering Provider: Annalise PETERSONNadja MORRIS 87293 Potassium [Moles/Vol] 3.6 mmol/L 3.5 - 5.3 [facility] 2420 DO Work Phone: Comment on above: Ordering Provider: Annalise MUNGUIAGREGORY 92704 Sodium [Moles/Vol] 137 mmol/L 136 - 145 [facility] 2420 DO Work Phone: Comment on above: Ordering Provider: Annalise PETERSONNadja MORRIS 99689 Urea nitrogen [Mass/Vol] 11 mg/dL 6 - 23 [facility] 2420 DO Work Phone: Comment on above: Ordering Provider: Annalise RAMESH MORRIS 55371 Otheron 12-04-2020 >60 >60 [facility] 2420 DO Work Phone: Comment on above: Ordering Provider: Annalise RAMESH MORRIS 59070 CALCULATIONS OF CASSIE MATED GFR ARE PERFORMED USING THE MDRD STUDY EQUATION FOR THE IDMS-TRACEABLE CREATININE METHODS. CLIN CHEM 2007;53:766-72 URINALYSIS WITH CULTURE IF I NDICATEDon 12-04-2020 Appearance (U) CLEAR CLEAR [facility] 2420 DO Work Phone: Comment on above: Ordering Provider: Annalise Munoz Color (U) Yellow See Below [facility] 2420 DO Work Phone: Comment on above: SOURCE: Reference Ra nge: STRAW,YELLOW Ordering Provider: Annalise Munoz Glucose Ql (U) Negative NEGATIVE [facility] 2420 DO Work Phone: Comment on above: Ordering Provider: Annalise MORRIS 86384 Ketones Ql (U) Negative NEGATIVE [facility] 2420 DO Work Phone: Comment on above: Ordering Provider: Annalise Munoz Leukocyte esterase Test strip Ql (U) Negative NEGATIVE [facility] 2420 DO Work Phone: Comment on above: Ordering Provider: Annalise MORRIS 25871 pH (U) 6.0 [pH] 5.0 - 8.0 [facility] 2420 DO Work Phone: Comment on above: Ordering Provider: Annalise MORRIS 11523 Protein (U) [Mass/Vol] Negative NEGATIVE [facility] 2420 DO Work Phone: Comment on above: Ordering Provider: Annalise MORRIS 20808 RBC (U) [#/Vol] LARGE(3+) Abnormal NEGATIVE [facility] 2420 DO Work Phone: Comment on above: Ordering Provider: Annalise Munoz Specific gravity (U) [Rel density] 1.020 1 See Below [facility] 2420 DO Work Phone: Comment on above: Reference Range: 1.0 05 - 1.035 Ordering Provider: Annalise Munoz URINALYSIS WITH CULTURE IF INDICATED Negative NEGATIVE [facility] 2420 DO Work Phone: Comment on above: Ordering Provider: Annalise MUNGUIAGREGORY 47300 URINALYSIS WITH CULTURE IF INDICATED <2.0 0.0 - 1.9 [facility] 2420 DO Work Phone: Comment on above: Ordering Provider: Annalise RAMESH MORRIS 64217 Urinalysis, Microscopicon Urinalysis, Microscopic 1 {/HPF} M [facility] 2420 DO Work Phone: Comment on above: SOURCE: Ordering Provider: Annalise MUNGUIAGREGORY 51303 Urinalysis, Microscopic 39 {/HPF} Abnormal 0-5 M [facility] 2420 DO Work Phone: Comment on above: Ordering Provider: Annalise PETERSONY EZRAGREGORY 75097 Urinalysis, Microscopic 1+ M [facility] 2420 DO Work Phone: Comment on above: Ordering Provider: Annalise PETERSONNadja MORRIS 24582 Urine Teston 12-04 HCG ( test) Ql (U) Negative Negative [facility] 2420 DO Work Phone: Comment on above: Ordering Provider: Annalise RAMESH MORRIS 33162 Otheron 11-24-2020 Name JEFFERY CORONEL Pathologist: ALE BAHate of Procedure: 11/24/2020ate Received: 11/27/2020ate Reported 11/29/2020ubmitting Physician: ARABELLA DUBOIS, DOLocation: [facility] Copy To/Referring/Attending:Barb PATTON DO Other External # FINAL DIAGNOSISA. ILEUM, BIOPSY:--SMALL INTESTINE MUCOSA, NO SIGNIFICANT PATHOLOGIC ABNORMALITY. B. COLON, BIOPSY:--COLONIC MUCOSA, NO SIGNIFICANT PATHOLOGIC ABNORMALITY. Electronically Signed Out By ANDRES LONG MD/G1By the signature on this report, the individual or group listed as making theFinal Interpretation/Diagnosis certifies that they have reviewed this case. Clinical History:Physician Contact Number: [id number] (A): FormalinFixative (B): FormalinClinical Diagnosis History DIARRHEASpecimens Submitted As:A: BX ILEUM B: RANDOM COLON BX Gross Description:A: Received in formalin, labeled with the patient's name and hospital numberand BX ileum, are multiple fragments of jackson, soft tissue aggregating to 0.8 x0.3 x 0.2 cm. The specimen is submitted in toto in one cassette.LMPB: Received in formalin, labeled with the patient's name and hospital numberand random colon BX, are multiple fragments of jackson, soft tissue aggregatingto 2.4 x 0.2 x 0.2 cm. The specimen is submitted in toto in 2 cassettes.[facility] [id number] [place] [address] Shotlst 2420 DO Work Phone: [email or web address] {[id number]} Shotlst 2424 DO Work Phone: Coronavirus 2019 RNA by PCR, Screening Asymptomticon 11-22-2020 Coronavirus 2019 RNA by PCR, Screening Asymptomtic NOT DETECTED See Below Shotlst 2420 DO Work Phone: Comment on above: SOURCE: Nasal, Nasop haryngealReference Range: Not Detected.This assay is designed to detect the N, ORF1ab and/or S genes of SARS-CoV-2 via nucleic acid amplification. A Negative (NOT DETECTED) result does not preclude 2019-nCoV infection since the adequacy of sample collection and/or low viral burden may result in presence of viral nucleic acids below the clinical sensitivity of this test method. Negative (NOT DETECTED) result should not be used as the sole basis for treatment or other patient management decisions. Rather negative results should be combined with clinical observations, patient history, and epidemiological information to make patient management decisions.Fact sheet for providers: https://www.fda.gov/media/650723/downloadFact sheet for patients: https://www.fda.gov/media/474202/downloadThis test has received FDA Emergency Use Authorization (EUA) and has been verified by [facility] ([facility]). This test is only authorized for the duration of time that circumstances exist to justify the authorization of the emergency use of in vitro diagnostic tests for the detection of SARS-CoV-2 virus and/or diagnosis of COVID-19 infection under section 564(b)(1) of the Act, 21 U.S.C. 360bbb-3(b)(1), unless the authorization is terminated or revoked sooner. [facility] is certified under CLIA-88 as qualified to perform high complexity testing. Testing is performed in the [facility] laboratories located at [address] [place] [address]. [facility]/Pathon 11-07-2020 Cytology report Cyto stain.thin prep Doc (Cvx/Vag) Date of Procedure: 11/07/2020 Pathologist: [facility], CytologyDate Reported: 1Date Received: 11/07/2020Submitting Physician: BABAR LINN, FINAL CYTOLOGICAL INTERPRETATIONA. THINPREP PAP CERVICAL: Specimen adequacy: SATISFACTORY FOR EVALUATION. Quality Indicator: Endocervical/transformat ion zone component is present. Quality Indicator: Limited in cellularity. Specimen consists predominantlyof blood. General Categorization: NEGATIVE FOR INTRAEPITHELIAL LESION OR MALIGNANCY. Ancillary Testing: Specimen does not meet the requisition-stated criteria for HPV testing.See Pap test interpretation above. Electronically Signed Out By [facility], Cytology//PWM By the signature on this report, the individual or group listed as making theFinal Interpretation/Diagnosis certifies that they have reviewed this case.Educational Note:Cervical cytology is a screening procedure primarily for squamous cancers andprecursors and has associated false-negative and false-positive results asevidenced by published data. Your patient's test should be interpreted in thiscontext, together with patient's history and clinical findings. Regularsampling and follow-up of unexplained clinical signs and symptoms arerecommended to minimize false negative results. Clinical HistoryDate of Last Menstrual Period: 11/05/2020Other Clinical Conditions:HPV Reflex for ASC-US only - Include HPV Genotype Bloody Prep - Reprocessed with addition of Glacial Acetic AcidClinical Diagnosis History: Screening for cervical cancer - (Z12.4) Source of SpecimenA: THINPREP PAP CERVICAL [facility] [id number] [id number] MG-OBALLISONN-Dejuan jones 9002 DO Work Phone: ABO/Rh Echoon 07-12-2018 ABO/Rh E Interp... Positive Normal [facility] Comment on above: Performed By: #### 2 [id number] #### [facility] [address] [place] [address] Antibody Screen Cap...on Screen Interp... Negative Normal [facility] Comment on above: Performed By: #### 2 [id number] #### [facility] [address] [place] [address] Auto Diffon 07-12-2018 Basophils (Bld) [#/Vol] 0.0 E3/mcL Normal 0.0-0.2 [facility] Comment on above: Order Comment: Order Added by Discern Expert. Performed By: #### 2 [id number] #### [facility] [address] [place] [address] Basophils/100 WBC (Bld) 0.4 % Normal 0.0-2.0 [facility] Comment on above: Order Comment: Order Added by Discern Expert. Performed By: #### 2 663952 #### [facility] [address] [place] [address] Eos Absolute 0.4 E3/mcL Normal 0.0-0.7 [facility] Comment on above: Order Comment: Order Added by Discern Expert. Performed By: #### 2 523654 #### [facility] [address] [place] [address] Eosinophils/100 WBC (Bld) 3.3 % Normal 0.0-11.0 [facility] Comment on above: Order Comment: Order Added by Discern Expert. Performed By: #### 2 [id number] #### [facility] [address] [place] [address] Lymphocytes (Bld) [#/Vol] 3.2 E3/mcL Normal 1.2-3.4 [facility] Comment on above: Order Comment: Order Added by Discern Expert. Performed By: #### 2 055484 #### [facility] [address] [place] [address] Lymphocytes/100 WBC (Bld) 29.3 % Normal 20.0-55.0 [facility] Comment on above: Order Comment: Order Added by Discern Expert. Performed By: #### 2 089621 #### [facility] [address] [place] [address] [place] Absolute 1.1 E3/mcL High 0.0-0.7 [facility] Comment on above: Order Comment: Order Added by Discern Expert. Performed By: #### 2 861423 #### [facility] [address] [place] [address] Monocytes/100 WBC (Bld) 9.8 % Normal 0.0-10.0 [facility] Comment on above: Order Comment: Order Added by Discern Expert. Performed By: #### 2 407077 #### [facility] [address] [place] [address] Neutro Absolute 6.2 E3/mcL Normal 1.4-6.5 [facility] Comment on above: Order Comment: Order Added by Discern Expert. Performed By: #### 2 [id number] #### [facility] [address] [place] [address] Neutro Auto 57.2 % Normal 37.0-75.0 [facility] Comment on above: Order Comment: Order Added by Discern Expert. Performed By: #### 2 957803 #### [facility] [address] [place] [address] BMPon 07-12-2018 Calcium [Mass/Vol] 8.8 mg/dL Normal 8.4-10.2 [facility] Comment on above: Performed By: #### 2 538756 #### [facility] [address] [place] [address] Chloride [Moles/Vol] 95 mmol/L Low 98-107 [facility] Comment on above: Performed By: #### 2 047450 #### [facility] [address] [place] [address] CO2 [Moles/Vol] 20.9 mmol/L Low 24.0-30.0 [facility] Comment on above: Performed By: #### 2 607071 #### [facility] [address] [place] [address] Creatinine [Mass/Vol] 0.7 mg/dL Normal 0.6-1.3 [facility] Comment on above: Performed By: #### 2 267777 #### [facility] [address] [place] [address] Glucose [Mass/Vol] 106 mg/dL High 70-99 [facility] Comment on above: Performed By: #### 2 033971 #### [facility] [address] [place] [address] Potassium [Moles/Vol] 3.6 mmol/L Normal 3.5-5.1 [facility] Comment on above: Performed By: #### 2 968227 #### [facility] [address] [place] [address] Sodium [Moles/Vol] 129 mmol/L Low 136-145 [facility] Comment on above: Performed By: #### 2 531075 #### [facility] [address] [place] [address] Urea nitrogen [Mass/Vol] 12 mg/dL Normal 7-18 [facility] Comment on above: Performed By: #### 2 906742 #### [facility] [address] [place] [address] Urea nitrogen/Creatinine [Mass ratio] 17.1 ratio Normal 5.4-30.0 [facility] Comment on above: Performed By: #### 2 034532 #### [facility] [address] [place] [address] BhCG Qualon 07-12-2018 Beta hCG Ql Negative Normal Negative [facility] Comment on above: Performed By: #### 2 844663 #### [facility] Chemistry Manual Subsection [address] [place] [address] CBC w/ Auto Diffon 8 Erythrocyte distribution width (RBC) [Ratio] 13.1 % Normal 11.5-14.5 [facility] Comment on above: Performed By: #### 2 992457 #### [facility] [address] [place] [address] Hematocrit (Bld) [Volume fraction] 45.2 % Normal 36.0-48.0 [facility] Comment on above: Performed By: #### 2 539452 #### [facility] [place] [address] Hemoglobin (Bld) [Mass/Vol] 15.4 g/dL Normal 12.0-16.0 [facility] Comment on above: Performed By: #### 2 762012 #### [facility] [place] [address] MCH (RBC) [Entitic mass] 30.4 pg Normal 27.0-31.0 [facility] Comment on above: Performed By: #### 2 062497 #### [facility] [address] [place] [address] MCHC (RBC) [Mass/Vol] 34.0 g/dL Normal 33.0-37.0 [facility] Comment on above: Performed By: #### 2 885619 #### [facility] [address] [place] [address] MCV (RBC) [Entitic vol] 89.4 fL Normal 78.0-100.0 [facility] Comment on above: Performed By: #### 2 956829 #### [facility] [place] [address] Platelet mean volume (Bld) [Entitic vol] 7.4 fL Normal 7.4-11.0 [facility] Comment on above: Performed By: #### 2 450875 #### [facility] [address] [place] [address] Platelets (Bld) [#/Vol] 418 E3/mcL High 130-400 [facility] Comment on above: Performed By: #### 2 649509 #### [facility] [address] [place] [address] RBC (Bld) [#/Vol] 5.05 E6/mcL Normal 3.90-5.40 [facility] Comment on above: Performed By: #### 2 652034 #### [facility] [address] [place] [address] WBC (Bld) [#/Vol] 10.8 E3/mcL Normal 3.6-11.0 [facility] Comment on above: Performed By: #### 2 115376 #### [facility] [address] [place] [address] PTon 07-12-2018 INR Coag (PPP) [Relative time] 1.1 {INR} Normal 1.0-1.2 [facility] Comment on above: Result Comment: INR Recommended Therapeuptic Ranges: Prophylaxis/treatment of DVT and PE?2.0-3.0 Prevention of systemic embolism?.2.0-3.0 Mechanical prosthetic values?2.5-3.5 CRITICAL VALUES?.>4.0 Performed By: #### 2 [id number] #### [facility] Hematology Automated Subsection [facility] [place] [address] PT Coag (PPP) [Time] 13.7 second(s) Normal 11.6-14.6 [facility] Comment on above: Performed By: #### 2 554203 #### [facility] Hematology Automated Subsection [facility] [place] [address] XR Chest AP Portableon 07-12 XR Chest AP Portable Exam Date/Time: 07/12/2018 02:18 EDT Reason for Exam: ET tube placement Report STUDY: XR Chest AP Portable; 07/12/2018 2:18 am INDICATION: ET tube placement. COMPARISON: None. ACCESSION NUMBER(S): [id number] ORDERING CLINICIAN: Samir Dinh FINDINGS: The examination is limited secondary to portable technique and patient body habitus. There is intubation of the patient with endotracheal tube in the right mainstem bronchus. The endotracheal tube was slightly retracted on the repeat radiograph, however remains in the proximal right mainstem bronchus. There is increased opacity of the left lung, however this is not well assessed secondary to overlying soft tissue. No evidence of pneumothorax. IMPRESSION: Endotracheal tube tip terminates in the proximal right mainstem bronchus. Increased opacity of the left lung may correspond to atelectasis or airspace disease. Evaluation is however limited secondary to the overlying external soft tissue, and attention on short-term progress radiograph is recommended. These findings were discussed withDr. Dinh at 02:20 hours on 07/12/2018. FINAL REPORT Dictated: 07/12/2018 2:22 am Vinay Gonzalez MD Signed (Electronic Signature): 07/12/2018 2:22 am Signed by: Vinay Gonzalez MD Technologist: OMKAR Normal [facility] eGFRon 07-12-2018 GFR/1.73 sq M predicted among non-blacks MDRD (S/P/Bld) [Vol rate/Area] mL/min/{1.73_m2} Normal [facility] Comment on above: Order Comment: Order added by Discern Expert. Performed By: #### 1 [id number] #### [facility] [place] [address] BhCG Qualon 07-07-2018 Beta hCG Ql Negative Normal Negative [facility] Comment on above: Performed By: #### 2 852266 #### [facility] Chemistry Manual Subsection [address] [place] [address] Glu Fastingon 06-17-2018 Glucose [Mass/Vol] 95 mg/dL Normal 70-99 [facility] Comment on above: Performed By: #### 2 742372 #### [facility] [address] [place] [address] Hct & Hgbon 06-17-2018 Hematocrit (Bld) [Volume fraction] 45.2 % Normal 36.0-48.0 [facility] Comment on above: Performed By: #### 1 [id number] #### [facility] [address] [place] [address] Hemoglobin (Bld) [Mass/Vol] 15.3 g/dL Normal 12.0-16.0 [facility] Comment on above: Performed By: #### 1 [id number] #### [facility] [address] [place] [address] Lipid Profileon 06-17-2018 Cholesterol [Mass/Vol] 239 mg/dL High 50-200 [facility] Comment on above: Result Comment: TOTA L CHOLEESTEROL: <200 NORMAL 200 - 239 BORDERLINE HIGH >240 HIGH Performed By: #### 3 [id number] #### [facility] [address] [place] [address] Cholesterol in HDL [Mass/Vol] 47 mg/dL Normal >=41 [facility] Comment on above: Performed By: #### 3 [id number] #### [facility] [address] [place] [address] Cholesterol in LDL [Mass/Vol] 164 mg/dL High 0-130 [facility] Comment on above: Result Comment: <100 OPTIMAL 100-129 NEAR / ABOVE OPTIMAL 130-159 BORDERLINE HIGH 160-189 HIGH >190 VERY HIGH CALC LDL NOT VALID WHEN TRIGLYCERIDE IS >400 MG/DL Performed By: #### 3 [id number] #### [facility] [address] [place] [address] Cholesterol in VLDL [Mass/Vol] 28 mg/dL Normal [facility] Comment on above: Performed By: #### 3 [id number] #### [facility] [address] [place] [address] Triglyceride [Mass/Vol] 142 mg/dL Normal 35-150 [facility] Comment on above: Result Comment: <150 NORMAL 150-199 BORDERLINE HIGH 200-499 HIGH >500 VERY HIGH Performed By: #### 3 1114085 #### [facility] [address] [place] [address] Progress Noteon 09-09-2017 Legal Researcher Authentication Interface Message Text Patient ID: Jeffery Coronel is a 17 y.o. female. Her chief complaint(s)include: Rash.Assessment:1. Drug exanthemPlan:Jeffery was seen today for rash.Diagnoses and all orders for this visit:Drug exanthem- diphenhydrAMINE (BENADRYL) 25 MG capsule; Take 1 Cap (25 mg) by mouthevery 6 hours as needed for ItchingRash is c/w a drug rash secondary to Keflex. Patient completed Keflex the dayrash appeared, instructed to start Benadryl and will avoid Cephalosporins in thefuture.Return if symptoms worsen or fail to improve.Subjective:She is unaccompanied. RashThe onset has been acute. The duration has been 2 days. The course isgradually worsening.The rash is located on the total body (spreading to feet today). The rash isdescribed as red, bumpy and itchy. Onset followed new medication (on Keflex forstrep, prescribed by ED) and recent illness (previous strep sxs resolved).The patient's associated symptoms include: cough (slight, attributed toallergies). The patient has no fever, no rhinorrhea, no sore throat, nodifficulty breathing, no vomiting and no diarrhea.The patient has been exposed to no sick contacts at home .Review of SystemsSkin: Positive for rash.Objective:Physical ExamConstitutional: She appears well. No distress.HENT:Head: Atraumatic.Right Ear: Tympanic membrane and external ear normal.Left Ear: Tympanic membrane and external ear normal.Nose: Nose normal. No nasal discharge.Mouth/Throat: Throat is not red. Mucous membranes are moist. Tonsils are 2+ onthe right. Tonsils are 2+ on the left. No tonsillar exudate. Oropharynx isclear.Eyes: Conjunctivae are normal.Neck: Neck supple. No neck adenopathy.Cardiovascula r: Normal rate, regular rhythm, S1 normal and S2 normal.No murmur heard.Pulmonary/Chest: Breath sounds normal. No respiratory distress.Neurological: She is alert.Skin: Rash noted. Rash is maculopapular (scattered blanchable red lesions withperipheral blanching to arms, legs, hands/palms, feet, face, abdomen). Nopallor. Skin is warm.Vitals reviewed: Blood pressure 121/64, pulse 79, temperature 36.4 C (97.5 F),temperature source Temporal, weight (!) 118.5 kg, last menstrual teqlwt7509/09/2017. Normal [facility] HIV 1 AND 2 Antibody Screeno n 06-20-2017 HIV 1 AND 2 Antibody Screen Negative Normal Negative [facility] Comment on above: Order Comment: With differential.Is this specimen being sent to an external lab?->No Result Comment: Nega tive result does not rule out HIV infection. Ifacute HIV infection is suspected in a high-riskindividual, submit plasma specimen for HIV-1 RNAquantification test (HIVDQ) and/or HIV-2 DNA/RNAtest (FHV2Q).Test Performed by:[place] [address] Performed By: #### C BC ####[address] [phone] Insulinon 06-20-2017 Insulin 15 uIU/mL Normal [facility] Comment on above: Order Comment: With differential.Is this specimen being sent to an external lab?->No Result Comment: Slig htly hemolyzed. Hemolysis can lead to spuriously low results.Interpret results with caution. Reference RangePost 4-12 hour Fast Male Female 0-8 years 0-13 uIU/mL 0-13 uIU/mL >8 years 0-17 uIU/mL 0-17 uIU/mL2 hour Post Meal 7.6-26 uIU/mL 7.6-26 uIU/mL2 hour Post Glucose 15-53 uIU/mL 15-53 uIU/mL Testing Performed By: #### C BC ####[address] [phone] Rapid Plasma Reaginon 2016 Rapid Plasma Reagin Nonreactive Normal [facility] Comment on above: Order Comment: With differential.Is this specimen being sent to an external lab?->No Result Comment: REFE RENCE RANGE:Nonreactive A reactive RPR should be verified by an FTA to confirm active infection. Performed By: #### C BC ####[address] [phone] Celeste 06-19-2017 Alanine aminotransferase (ALT) 41 U/L High 0-31 [facility] Comment on above: Order Comment: With differential.Is this specimen being sent to an external lab?->No Performed By: #### A LT ####[address] [phone] Kira 06-19-2017 Aspartate aminotransferase (AST) 33 U/L High 0-31 [facility] Comment on above: Order Comment: With differential.Is this specimen being sent to an external lab?->No Performed By: #### A ST ####[address] [phone] Complete Blood Counton 06-19 Differential Complete Automated Normal [facility] Comment on above: Order Comment: With differential.Is this specimen being sent to an external lab?->No Performed By: #### C BC ####[address] [phone] % Neutrophils 43.3 % Normal 35.0-66.0 [facility] Comment on above: Order Comment: With differential.Is this specimen being sent to an external lab?->No Performed By: #### C BC ####[address] [phone] Basophils/100 WBC Auto (Bld) 1.14 % High 0.00-1.00 [facility] Comment on above: Order Comment: With differential.Is this specimen being sent to an external lab?->No Performed By: #### C BC ####[address] [phone] Eosinophils/100 leukocytes 2.03 % Normal 0.00-3.00 [facility] Comment on above: Order Comment: With differential.Is this specimen being sent to an external lab?->No Performed By: #### C BC ####[address] [phone] Erythrocyte distribution width Auto Ratio (RBC) 11.9 % Normal 0.0-14.4 [facility] Comment on above: Order Comment: With differential.Is this specimen being sent to an external lab?->No Performed By: #### C BC ####[address] [phone] Erythrocytes (RBC) 4.89 10E12/L Normal 4.00-4.90 [facility] Comment on above: Order Comment: With differential.Is this specimen being sent to an external lab?->No Performed By: #### C BC ####[place] [phone] Hematocrit (HCT) 47.4 % High 36.0-44.0 [facility] Comment on above: Order Comment: With differential.Is this specimen being sent to an external lab?->No Performed By: #### C BC ####[place] [phone] Hemoglobin mass conc (Bld) 15.7 g/dL High 12.0-15.0 [facility] Comment on above: Order Comment: With differential.Is this specimen being sent to an external lab?->No Performed By: #### C BC ####[address] [phone] Lymphocytes/100 leukocytes 43.3 % Normal 24.0-44.0 [facility] Comment on above: Order Comment: With differential.Is this specimen being sent to an external lab?->No Performed By: #### C BC ####[address] [phone] MCH 32.2 pg Normal 26.0-34.0 [facility] Comment on above: Order Comment: With differential.Is this specimen being sent to an external lab?->No Performed By: #### C BC ####[address] [phone] MCHC mass conc (RBC) 33.2 % Normal 31.0-37.0 [facility] Comment on above: Order Comment: With differential.Is this specimen being sent to an external lab?->No Performed By: #### C BC ####[address] [phone] MCV 97.0 fL Normal 80.0-100.0 [facility] Comment on above: Order Comment: With differential.Is this specimen being sent to an external lab?->No Performed By: #### C BC ####[address] [phone] Monocytes/100 leukocytes 10.30 % High 3.00-6.00 [facility] Comment on above: Order Comment: With differential.Is this specimen being sent to an external lab?->No Performed By: #### C BC ####[address] [phone] Neutrophils 3.0 Normal [facility] Comment on above: Order Comment: With differential.Is this specimen being sent to an external lab?->No Performed By: #### C BC ####[address] [phone] Platelet mean volume (PMV) 7.5 fL Normal [facility] Comment on above: Order Comment: With differential.Is this specimen being sent to an external lab?->No Result Comment: MPV is plateletrange and agedependent Performed By: #### C BC ####[address] [phone] Platelets 360 10*3/uL Normal 150-450 [facility] Comment on above: Order Comment: With differential.Is this specimen being sent to an external lab?->No Performed By: #### C BC ####[address] [phone] WBC (Leukocytes) 6.9 10*3/uL Normal 4.5-11.0 [facility] Comment on above: Order Comment: With differential.Is this specimen being sent to an external lab?->No Performed By: #### C BC ####[address] [id number] Hemoglobin A1con 06-19-2017 Hemoglobin A1c/Hemoglobin.total mass fraction (Bld) 5.1 % Normal 0.0-6.4 [facility] Comment on above: Order Comment: With differential.Is this specimen being sent to an external lab?->No Performed By: #### H BA1C ####[address] [id number] Lipid Panelon 06-19-2017 Comment-Lipid ----- Normal [facility] Comment on above: Order Comment: With differential.Is this specimen being sent to an external lab?->No Result Comment: Slig htly hemolyzed. Performed By: #### L IPID ####[address] [id number] Cholesterol 265 mg/dL Abnormal 0-199 [facility] Comment on above: Order Comment: With differential.Is this specimen being sent to an external lab?->No Result Comment: Richardson rable <200 mg/dLBorderline 200-239 mg/dLHigh Risk >239 mg/dL Performed By: #### L IPID ####[address] [id number] Cholesterol in VLDL mass conc 21 mg/dL Normal [facility] Comment on above: Order Comment: With differential.Is this specimen being sent to an external lab?->No Performed By: #### L IPID ####[address] [id number] HDL Cholesterol 50 mg/dL Normal [facility] Comment on above: Order Comment: With differential.Is this specimen being sent to an external lab?->No Result Comment: Male < 40mg/dL High RiskFemale < 50mg/dL High RiskMale & Female > 60mg/dL Low Risk Performed By: #### L IPID ####[address] [id number] LDL Cholesterol 194 mg/dl High 0-129 [facility] Comment on above: Order Comment: With differential.Is this specimen being sent to an external lab?->No Result Comment: Richardson rable <130 mg/dLBorderline 130-159 mg/dLHigh Risk >159 mg/dl Performed By: #### L IPID ####[address] [id number] Triglyceride 103 mg/dL Normal [facility] Comment on above: Order Comment: With differential.Is this specimen being sent to an external lab?->No Result Comment: Norm al <150 mg/dlBorderline 150-199 mg/dlHigh 200-500 mg/dlVery High >500 mg/dlResult invalid if not a fasting specimen. Performed By: #### L IPID ####[address] [id number] T4,Freeon 06-19-2017 Thyroxine (T4) free 1.2 ng/dL Normal 0.8-1.4 [facility] Comment on above: Order Comment: With differential.Is this specimen being sent to an external lab?->No Result Comment: New Reference Ranges - effective 08/30/09. Performed By: #### T 4FR ####[address] [id number] TSHon 06-19-2017 Thyroid stimulating hormone (TSH) 1.318 uIU/mL Normal 0.350-5.500 [facility] Comment on above: Order Comment: With differential.Is this specimen being sent to an external lab?->No Performed By: #### T SH ####[address] [phone] C. trachomatis Amplified Pro beon 06-18-2017 C. trachomatis Amplified Probe Is this specimen being sent to an external lab?->NoC. trachomatis Amplified Probe: NEGATIVE. No Chlamydia trachomatis DNA detected. Source: URINE Collected: 06/18/17 14:24 Site: Urine Received : 06/18/17 21:36C. trachomatis Amplified Probe FINAL 06/19/17 14:34 NEGATIVE. No Chlamydia trachomatis DNA detected. - Method: DNA Probe Detection by Strand Displacement Amplification Assay. - NOTE: This Ampified DNA Assay should not be used for the evaluation of suspected sexual abuse or for other medico-legal indications. - Screening urine specimens for Chlamydia trachomatis and Neisseria gonorrhoeae using nucleic acid amplification is an accurate and sensitive method compared to standard techniques of detection of these pathogens. Because the pathogen is diluted in urine, it is somewhat less sensitive than a direct swab specimen evaluated by nucleic acid amplification techniques. Normal [facility] Comment on above: Performed By: #### C TAMP ####[address] [id number] GC Amplified Probeon 017 GC Amplified Probe Is this specimen giuseppe ng sent to an external lab?->NoGC Amplified Probe: NEGATIVE. No Neisseria gonorrhoeae DNA detected. Source: URINE Collected: 06/18/17 14:25 Site: Urine Received : 06/18/17 21:36GC Amplified Probe FINAL 06/19/17 14:37 NEGATIVE. No Neisseria gonorrhoeae DNA detected. - Method: DNA Probe Detection by Strand Displacement Amplification Assay. - NOTE: This Amplified DNA Assay should not be used for the evaluation of suspected sexual abuse or for other medico-legal indications. - Screening urine specimens for Chlamydia trachomatis and Neisseria gonorrhoeae using nucleic acid amplification is an accurate and sensitive method compared to standard techniques of detection of these pathogens. Because the pathogen is diluted in urine, it is somewhat less sensitive than a direct swab specimen evaluated by nucleic acid amplification techniques. Normal [facility] Comment on above: Performed By: #### G CAMP ####[address] [phone] Hemoglobin A1con 06-18-2017 Hemoglobin A1c/Hemoglobin.total mass fraction (Bld) ----- Normal [facility] Comment on above: Order Comment: With differential.Is this specimen being sent to an external lab?->No Result Comment: In D iagnosed Diabetes: > 8 Action suggested 7-8 Good Control 6-7 Near Normal Glycemia < 6 Non-diabetic level Diabetes Screenin.7-6.4% Prediabetic >6.5% Diabetic - should be confirmed with repeat HgA1c or fasting blood sugar. Performed By: #### H BA1C ####[address] [phone] Progress Noteon 06-18-2017 Legal Researcher Authentication Interface Message Text Patient ID: Jeffery Coronel is a 16 y.o. female. Her chief complaint(s)include: 16 YEAR WELL CHILD.Assessment:1. Routine general medical examination at a health care facility2. BMI (body mass index), pediatric, > 99% for age3. Abnormal weight gain4. Need for vaccinationPlan:Jeffery was seen today for 16 year well child.Diagnoses and all orders for this visit:Routine general medical examination at a health care facility- Behavioral/Emotional Assessment w Score - PHQ-9- Vision Screening- Hearing Screening- C. trachomatis, amplified probe- GC Amplified Probe- Complete Blood Count with Diff (Clinic Collect)- HIV-1&2 Antibody Screen- Rapid Plasma ReaginBMI (body mass index), pediatric, > 99% for ageAbnormal weight gain- Venipuncture- ALT- AST- Lipid panel- Hemoglobin A1c- TSH (Clinic Collect)- T4, free (Clinic Collect)- InsulinNeed for vaccination- Hepatitis A vaccine (PED/ADOL <= 18y)Return in 1 year (on 06/18/2018) for well check.Subjective:The patient's reason for visit is Well Check 16 Year. She is unaccompanied. Nolanguage language interpreter was used.16 YEAR WELL CHILDEducation:She Is in sophomore year of college and is doing well. 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 She does not use phone/text while driving.Sex:Jeffery is sexually active. She has had 2 partners. Jeffery sometimes usescondoms. Typically, she uses condoms and oral contraceptives as her currentcontraceptive method. She has not had an STD.Suicidality:She has ways to cope with stress. She has no depression and has no anxiety.MenstruationLast Menstrual period: nowMenstruation: regular periods and moderate cramping (off and on bleeding duringweek on OCP)OutputUrine and Stool Pattern:Urine and Stool Pattern: Normal stool pattern, normal urine pattern.SleepSleeping Difficulty: no difficulty sleepingTeen Anticipatory GuidanceThe following anticipatory guidance was reviewed during the visit:Nutrition: limit junk food/fast food and soft drinks.Social: avoid or limit screen time.Health: age appropriate dental care, age appropriate sleep habits, don't usetobacco/ alcohol/ drugs/ diet pills/ inhalants, contraception/practice safe sex/use condoms, driving risks and self breast exam.ScreeningsHearing Vision Concerns:The caregiver has no concerns about the patient's hearing.The caregiver has no concerns about the patient's vision.Primary Care Review of SystemsObjective:Physica l ExamConstitutional: She appears overweight. She appears well. She is active. 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 Dentition is normal. Oropharynx isclear.Eyes: Conjunctivae and EOM are normal. No strabismus. Pupils are equal, round,and reactive to light.Neck: Normal range of motion. Neck supple. Thyroid normal. No adenopathy.Cardiovascula r: Normal rate, regular rhythm, S1 normal and S2 normal. Pulsesare palpable.No murmur heard.Pulmonary/Chest: Breath sounds normal. No respiratory distress. Exhibits nodeformity.Abdominal: Soft. Bowel sounds are normal. She exhibits no distension and nomass. There is no hepatosplenomegaly. There is no tenderness.Musculoskelet al: Normal range of motion. Back: She exhibits no scoliosis.Neurological: She is alert. She has normal strength. She exhibits normal muscletone. Gait normal.Skin: No rash noted. No pallor. Skin is warm.Vitals reviewed: Blood pressure 97/59, pulse 78, height 158 cm, weight (!) 115.3kg, last menstrual period 06/15/2017. Normal [facility] Vital Signs Date Time Vital Sign Value Performing Clinician Facility 04-22-2025 09:24-0400 Body height 157.48 cm Whit Shirley COMPUTER BOOKKEEPER-C Work Phone: [facility] 04-22-2025 09:24-0400 Body mass index (BMI) [Ratio] 63.6 kg/m2 Whitalan Yangman COMPUTER BOOKKEEPER-C Work Phone: [facility] 04-22-2025 09:24-0400 Body weight 157.85 kg Whitalan Yangman COMPUTER BOOKKEEPER-C Work Phone: [facility] 04-22-2025 09:24-0400 Diastolic blood pressure 83 mm[Hg] Whit Yangman COMPUTER BOOKKEEPER-C Work Phone: [facility] 04-22-2025 09:24-0400 Systolic blood pressure 132 mm[Hg] Whitalan Yangman COMPUTER BOOKKEEPER-C Work Phone: [facility] 12-07-2024 16:27-0500 Body height 158.8 cm Stvee Stentz PA-C Work Phone: [facility] 12-07-2024 16:27-0500 Body mass index (BMI) [Ratio] 61.2 kg/m2 Steve Stentz PA-C Work Phone: [facility] 12-07-2024 16:27-0500 Body weight 154.22 kg Steve Stentz PA-C Work Phone: [facility] 12-07-2024 16:27-0500 Diastolic blood pressure 82 mm[Hg] Steve Stentz PA-C Work Phone: [facility] 12-07-2024 16:27-0500 Heart rate 74 /min Steve Stentz PA-C Work Phone: [facility] 12-07-2024 16:27-0500 SaO2% (BldA) [Mass fraction] 99 % Steve Stentz PA-C Work Phone: [facility] 12-07-2024 16:27-0500 Systolic blood pressure 130 mm[Hg] Steve Stentz PA-C Work Phone: [facility] 11-23-2024 07:47-0500 Body height 160 cm Anu Folsom LETTER STAMPING MACHINE OPERATOR.PRESS PULLER Work Phone: [facility] 11-23-2024 07:47-0500 Body mass index (BMI) [Ratio] 60.58 kg/m2 Anu Folsom LETTER STAMPING MACHINE OPERATOR.PRESS PULLER Work Phone: [facility] 11-23-2024 07:47-0500 Body weight 155.13 kg Anu Natasha LETTER STAMPING MACHINE OPERATOR.PRESS PULLER Work Phone: [facility] 11-23-2024 07:47-0500 Diastolic blood pressure 86 mm[Hg] Anu Folsom LETTER STAMPING MACHINE OPERATOR.PRESS PULLER Work Phone: [facility] 11-23-2024 07:47-0500 Systolic blood pressure 132 mm[Hg] Anu Folsom LETTER STAMPING MACHINE OPERATOR.PRESS PULLER Work Phone: [facility] 07-13-2024 11:30-0400 Body height 157.5 cm Nichelle Hsieh PA-C Work Phone: [facility] 07-13-2024 11:30-0400 Body mass index (BMI) [Ratio] 58.53 kg/m2 Nichelle Fisherine PA-C Work Phone: [facility] 07-13-2024 11:30-0400 Body temperature 97.11 [degF] Nichelle Fisherine PA-C Work Phone: [facility] 07-13-2024 11:30-0400 Body weight 145.15 kg Nichelle Fisherine PA-C Work Phone: [facility] 07-13-2024 11:30-0400 Diastolic blood pressure 88 mm[Hg] Nichelle Jori PA-C Work Phone: [facility] 07-13-2024 11:30-0400 Heart rate 86 /min Nichelle Jori PA-C Work Phone: [facility] 07-13-2024 11:30-0400 Respiratory rate 18 /min Nichelle Jori PA-C Work Phone: [facility] 07-13-2024 11:30-0400 SaO2% (BldA) [Mass fraction] 97 % Nichelle Jori PA-C Work Phone: [facility] 07-13-2024 11:30-0400 Systolic blood pressure 125 mm[Hg] Nichelle Jori PA-C Work Phone: [facility] 02-21-2024 10:16-0400 Body height 157.5 cm Jarrod Oberhauser DO Work Phone: [facility] 02-21-2024 10:16-0400 Body mass index (BMI) [Ratio] 58.71 kg/m2 Jarrod Oberhauser DO Work Phone: [facility] 02-21-2024 10:16-040 Body temperature 98.6 [degF] Jarrod Oberhauser DO Work Phone: [facility] 02-21-2024 10:16-040 Body weight 145.6 kg Jarrod Oberhauser DO Work Phone: [facility] 02-21-2024 10:16-0400 Diastolic blood pressure 88 mm[Hg] Jarrod Oberhauser DO Work Phone: [facility] 02-21-2024 10:16-040 Heart rate 87 /min Jarrod Oberhauser DO Work Phone: [facility] 02-21-2024 10:16-040 Respiratory rate 18 /min Jarrod Oberhauser DO Work Phone: [facility] 02-21-2024 10:16-0400 SaO2% (BldA) [Mass fraction] 97 % Jarrod Oberhauser DO Work Phone: [facility] 02-21-2024 10:16-0400 Systolic blood pressure 196 mm[Hg] Jarrod Oberhauser DO Work Phone: [facility] 02-10-2024 09:03-0400 Body height 158 cm Jarrod Oberhauser DO Work Phone: [facility] 02-10-2024 09:03-0400 Body mass index (BMI) [Ratio] 58.32 kg/m2 Jarrod Oberhauser DO Work Phone: [facility] 02-10-2024 09:03-0400 Body weight 145.6 kg Jarrod Oberhauser DO Work Phone: [facility] 02-10-2024 09:03-0400 Diastolic blood pressure 82 mm[Hg] Jarrod Oberhauser DO Work Phone: [facility] 02-10-2024 09:03-0400 Heart rate 85 /min Jarrod Oberhauser DO Work Phone: [facility] 02-10-2024 09:03-0400 Systolic blood pressure 126 mm[Hg] Jarrod Oberhauser DO Work Phone: [facility] 03-13-2023 19:46-0400 Body height 157.4 cm Jarrod Oberhauser Other Phone: [facility] 03-13-2023 19:46-0400 Body temperature 98.06 [degF] Jarrod Oberhauser Other Phone: [facility] 03-13-2023 19:46-0400 Diastolic blood pressure 86 mm[Hg] Jarrod Oberhauser Other Phone: [facility] 03-13-2023 19:46-0400 Heart rate 83 /min Jarrod Oberhauser Other Phone: [facility] 03-13-2023 19:46-0400 Respiratory rate 14 /min Jarrod Jeweller Other Phone: [facility] 03-13-2023 19:46-0400 SaO2% (BldA) [Mass fraction] 98 % Jarrod Jeweller Other Phone: [facility] 03-13-2023 19:46-0400 Systolic blood pressure 128 mm[Hg] Jarrod Jeweller Other Phone: [facility] 01-02-2023 14:49-0500 Body height 157.48 cm Jarrod Paniagua Oberhauser Work Phone: [employer] Work Phone: 01-02-2023 14:49-0500 Body mass index (BMI) [Ratio] 58.73 kg/m2 Jarrod Paniagua Oberhauser Work Phone: [employer] Work Phone: 01-02-2023 14:49-0500 Body surface area Derived from formula 2.34 m2 Jarrod Paniagua Oberhauser Work Phone: [employer] Work Phone: 01-02-2023 14:49-0500 Body weight 145.66 kg Jarrod Paniagua Oberhauser Work Phone: [employer] Work Phone: 01-02-2023 14:49-0500 Diastolic blood pressure 70 mm[Hg] Jarrod L Oberhauser Work Phone: [employer] Work Phone: 01-02-2023 14:49-0500 Systolic blood pressure 120 mm[Hg] Jarrod L Oberhauser Work Phone: [facility] [address] Work Phone: 01-15-2022 11:41-0500 Body height 157.48 cm Jarrod L Oberhauser Work Phone: [facility] Work Phone: 01-15-2022 11:41-0500 Body mass index (BMI) [Ratio] 57.8 kg/m2 Jarrod L Oberhauser Work Phone: [facility] Work Phone: 01-15-2022 11:41-0500 Body surface area Derived from formula 2.32 m2 Jarrod L Oberhauser Work Phone: [facility] Work Phone: 01-15-2022 11:41-0500 Body temperature 96.9 [degF] Jarrod L Oberhauser Work Phone: [facility] Work Phone: 01-15-2022 11:41-0500 Body weight 143.34 kg Jarrod L Oberhauser Work Phone: [facility] Work Phone: 01-15-2022 11:41-0500 Diastolic blood pressure 79 mm[Hg] Jarrod L Oberhauser Work Phone: [facility] Work Phone: 01-15-2022 11:41-0500 Heart rate 89 /min Jarrod L Oberhauser Work Phone: [facility] Work Phone: 01-15-2022 11:41-0500 Systolic blood pressure 127 mm[Hg] Jarrod L Oberhauser Work Phone: [facility] Work Phone: 01-12-2022 00:10-0500 Diastolic blood pressure 68 mm[Hg] Jarrod Oberhauser Other Phone: [facility] 01-12-2022 00:10-0500 Heart rate 87 /min Jarrod Oberhauser Other Phone: [facility] 01-12-2022 00:10-0500 Respiratory rate 18 /min Jarrod Oberhauser Other Phone: [facility] 01-12-2022 00:10-0500 SaO2% (BldA) [Mass fraction] 97 % Jarrod Oberhauser Other Phone: [facility] 01-12-2022 00:10-0500 Systolic blood pressure 128 mm[Hg] Jarrod Oberhauser Other Phone: [facility] 01-11-2022 22:02-0500 Body height 157.4 cm Jarrod Oberhauser Other Phone: [facility] 01-11-2022 22:02-0500 Body temperature 98.78 [degF] Jarrod Oberhauser Other Phone: [facility] 01-11-2022 22:02-0500 Body weight 141 kg Jarrod Oberhauser Other Phone: [facility] 12-05-2021 14:49-0500 Body height 157.48 cm Jarrod L Oberhauser Work Phone: [facility] Work Phone: 12-05-2021 14:49-0500 Body mass index (BMI) [Ratio] 57.66 kg/m2 Jarrod L Oberhauser Work Phone: [facility] Work Phone: 12-05-2021 14:49-0500 Body surface area Derived from formula 2.32 m2 Jarrod L Oberhauser Work Phone: [facility] Work Phone: 12-05-2021 14:49-0500 Body temperature 96.9 [degF] Jarrod L Oberhauser Work Phone: [facility] Work Phone: 12-05-2021 14:49-0500 Body weight 143 kg Jarrod L Oberhauser Work Phone: [facility] Work Phone: 12-05-2021 14:49-0500 Diastolic blood pressure 82 mm[Hg] Jarrod L Oberhauser Work Phone: [facility] Work Phone: 12-05-2021 14:49-0500 Systolic blood pressure 124 mm[Hg] Jarrod L Oberhauser Work Phone: [facility] Work Phone: 12-05-2021 10:22-0500 Body height 157.48 cm Jarrod L Oberhauser Work Phone: [facility] Work Phone: 12-05-2021 10:22-0500 Body mass index (BMI) [Ratio] 57.25 kg/m2 Jarrod L Oberhauser Work Phone: [facility] Work Phone: 12-05-2021 10:22-0500 Body surface area Derived from formula 2.31 m2 Jarrod L Oberhauser Work Phone: [facility] Work Phone: 12-05-2021 10:22-0500 Body temperature 97.3 [degF] Jarrod L Oberhauser Work Phone: [facility] Work Phone: 12-05-2021 10:22-0500 Body weight 141.98 kg Jarrod L Oberhauser Work Phone: [facility] Work Phone: 12-05-2021 10:22-0500 Diastolic blood pressure 80 mm[Hg] Jarrod L Oberhauser Work Phone: [facility] Work Phone: 12-05-2021 10:22-0500 Heart rate 94 /min Jarrod L Oberhauser Work Phone: [facility] Work Phone: 12-05-2021 10:22-0500 Systolic blood pressure 128 mm[Hg] Jarrod L Oberhauser Work Phone: [facility] Work Phone: 10-09-2021 13:46-0500 Body height 157.48 cm Jarrod L Oberhauser Work Phone: [facility] Work Phone: 10-09-2021 13:46-0500 Body mass index (BMI) [Ratio] 58.16 kg/m2 Jarrod L Oberhauser Work Phone: [facility] Work Phone: 10-09-2021 13:46-0500 Body surface area Derived from formula 2.33 m2 Jarrod L Oberhauser Work Phone: [facility] Work Phone: 10-09-2021 13:46-0500 Body temperature 97.6 [degF] Jarrod L Oberhauser Work Phone: [facility] Work Phone: 10-09-2021 13:46-0500 Body weight 144.24 kg Jarrod L Oberhauser Work Phone: [facility] Work Phone: 10-09-2021 13:46-0500 Diastolic blood pressure 72 mm[Hg] Jarrod L Oberhauser Work Phone: [facility] Work Phone: 10-09-2021 13:46-0500 Heart rate 102 /min Jarrod L Oberhauser Work Phone: [facility] Work Phone: 10-09-2021 13:46-0500 Systolic blood pressure 128 mm[Hg] Jarrod L Oberhauser Work Phone: [facility] Work Phone: 08-10-2021 21:04-0400 Diastolic blood pressure 84 mm[Hg] Jarrod Oberhauser Other Phone: [facility] 08-10-2021 21:04-0400 Heart rate 88 /min Jarrod Oberhauser Other Phone: [facility] 08-10-2021 21:04-0400 Respiratory rate 20 /min Jarrod Oberhauser Other Phone: [facility] 08-10-2021 21:04-0400 SaO2% (BldA) [Mass fraction] 99 % Jarrod Oberhauser Other Phone: [facility] 08-10-2021 21:04-0400 Systolic blood pressure 122 mm[Hg] Jarrod Oberhauser Other Phone: [facility] 08-10-2021 19:21-0400 Body height 157.4 cm Jarrod Oberhauser Other Phone: [facility] 08-10-2021 19:21-0400 Body temperature 98.96 [degF] Jarrod Oberhauser Other Phone: [facility] 08-10-2021 19:21-0400 Body weight 136.4 kg Jarrod Oberhauser Other Phone: [facility] 08-01-2021 13:08-0400 Body height 157.48 cm Jarrod L Oberhauser Work Phone: [facility] Work Phone: 08-01-2021 13:08-0400 Body mass index (BMI) [Ratio] 57.25 kg/m2 Jarrod L Oberhauser Work Phone: [facility] Work Phone: 08-01-2021 13:08-0400 Body surface area Derived from formula 2.31 m2 Jarrod L Oberhauser Work Phone: [facility] Work Phone: 08-01-2021 13:08-0400 Body temperature 97.8 [degF] Jarrod L Oberhauser Work Phone: [facility] Work Phone: 08-01-2021 13:08-0400 Body weight 141.98 kg Jarrod L Oberhauser Work Phone: [facility] Work Phone: 08-01-2021 13:08-0400 Diastolic blood pressure 80 mm[Hg] Jarrod L Oberhauser Work Phone: [facility] Work Phone: 08-01-2021 13:08-0400 Heart rate 84 /min Jarrod L Oberhauser Work Phone: [facility] Work Phone: 08-01-2021 13:08-0400 Systolic blood pressure 130 mm[Hg] Jarrod L Oberhauser Work Phone: [facility] Work Phone: 07-19-2021 18:33-0400 Body height 157 cm Jarrod Oberhauser Other Phone: [facility] 07-19-2021 18:33-0400 Body temperature 97.88 [degF] Jarrod Oberhauser Other Phone: [facility] 07-19-2021 18:33-0400 Diastolic blood pressure 84 mm[Hg] Jarrod Oberhauser Other Phone: [facility] 07-19-2021 18:33-0400 Heart rate 82 /min Jarrod Oberhauser Other Phone: [facility] 07-19-2021 18:33-0400 SaO2% (BldA) [Mass fraction] 98 % Jarrod Oberhauser Other Phone: [facility] 07-19-2021 18:33-0400 Systolic blood pressure 139 mm[Hg] Jarrod Oberhauser Other Phone: [facility] 06-14-2021 15:24-0400 Body height 157.48 cm Jarrod L Oberhauser Work Phone: [facility] Work Phone: 06-14-2021 15:24-0400 Body mass index (BMI) [Ratio] 57.25 kg/m2 Jarrod L Oberhauser Work Phone: [facility] Work Phone: 06-14-2021 15:24-0400 Body surface area Derived from formula 2.31 m2 Jarrod L Oberhauser Work Phone: [facility] 120 Work Phone: 06-14-2021 15:24-0400 Body temperature 97.5 [degF] Jarrod L Oberhauser Work Phone: [facility] 120 Work Phone: 06-14-2021 15:24-0400 Body weight 141.98 kg Jarrod L Oberhauser Work Phone: [facility] 120 Work Phone: 06-14-2021 15:24-0400 Diastolic blood pressure 84 mm[Hg] Jarrod L Oberhauser Work Phone: [facility] 120 Work Phone: 06-14-2021 15:24-0400 Systolic blood pressure 120 mm[Hg] Jarrod L Oberhauser Work Phone: [facility] Work Phone: 05-16-2021 09:32-0400 Body height 157.48 cm Jarrod L Oberhauser Work Phone: [facility] [address] [place] Work Phone: 05-16-2021 09:32-0400 Body mass index (BMI) [Ratio] 57.25 kg/m2 Jarrod L Oberhauser Work Phone: [facility] [address] [place] Work Phone: 05-16-2021 09:32-0400 Body surface area Derived from formula 2.31 m2 Jarrod Paniagua Oberhauser Work Phone: [facility] [address] [place] Work Phone: 05-16-2021 09:32-0400 Body temperature 97.5 [degF] Jarrod Siva Oberhauser Work Phone: [facility] [address] [place] Work Phone: 05-16-2021 09:32-0400 Body weight 141.98 kg Jarrod L Oberhauser Work Phone: [facility] [address] [place] Work Phone: 05-16-2021 09:32-0400 Diastolic blood pressure 76 mm[Hg] Jarrod L Oberhauser Work Phone: [facility] [address] [place] Work Phone: 05-16-2021 09:32-0400 Systolic blood pressure 122 mm[Hg] Jarrod L Oberhauser Work Phone: [address] Work Phone: 04-16-2021 23:00-0400 Diastolic blood pressure 79 mm[Hg] Jarrod Obsabinoitzeler Other Phone: [facility] 04-16-2021 23:00-0400 Heart rate 95 /min Jarrod Obsabinohauser Other Phone: [facility] 04-16-2021 23:00-0400 Respiratory rate 16 /min Jarrod Obsabinoitzeler Other Phone: [facility] 04-16-2021 23:00-0400 SaO2% (BldA) [Mass fraction] 97 % Jarrod Bestsabino Other Phone: [facility] 04-16-2021 23:00-0400 Systolic blood pressure 147 mm[Hg] Jarrod Jeweller Other Phone: [facility] 04-16-2021 18:59-0400 Body temperature 98.06 [degF] Jarrod Bester Other Phone: [facility] 04-16-2021 18:59-0400 Body weight 132 kg Jarrod Bester Other Phone: [facility] 12-07-2020 12:47-0500 BMI (Body Mass Index) 55.6 kg/m2 Jarrod Oberhauser FN-SUTEX-Gtbbmlil 2420 DO Work Phone: 12-07-2020 12:47-0500 Body Temperature 96 [degF] Jarrod Oberhauser KM-EEMWS-Yoqcs husam 2420 DO Work Phone: 12-07-2020 12:47-0500 Body weight 137.89 kg Jarrod Oberhauser NE-EHHGQ-Tydhpj ke 2420 DO Work Phone: 12-07-2020 12:47-0500 BP Diastolic 90 mm[Hg] Jarrod Oberhauser FV-DDOMX-Wwgqmz ke 2420 DO Work Phone: Comment on above: Location: LUE; Position: Sitting 12-07-2020 12:47-0500 BP Systolic 135 mm[Hg] Jarrod Oberhauser JL-FJLYQ-Ddfnvk ke 2420 DO Work Phone: Comment on above: Location: LUE; Position: Sitting 12-07-2020 12:47-0500 BSA (Body Surface Area) 2.28 m2 Jarrod Oberhauser XB-QUZJN-Xarbknmg 2420 DO Work Phone: 12-07-2020 12:47-0500 Height 157.48 cm Jarrod Oberhauser AX-TOIHD-Ekssbt ke 2420 DO Work Phone: 12-07-2020 12:47-0500 Pulse (Heart Rate) 98 /min Jarrod Oberhauser FI-KXEDR-Jbt tlake 2420 DO Work Phone: 12-07-2020 12:47-0500 Pulse Oximetry 97 % Jarrod Oberhauser YI-KQAYS-Czsucd ke 2420 DO Work Phone: Comment on above: Source: 12-07-2020 12:47-0500 Respiratory Rate 18 /min Jarrod Oberhauser RE-DKHFC-Szpgb husam 2420 DO Work Phone: 12-07-2020 11:20-0500 BMI (Body Mass Index) 54.8 kg/m2 Jarrod Oberhauser NR-EOGLZ-Gnboeyti 2420 DO Work Phone: 12-07-2020 11:20-0500 Body Temperature 96.6 [degF] Jarrod Oberhauser GI-EVTKL-Ycgsx husam 2420 DO Work Phone: 12-07-2020 11:20-0500 Body weight 131.54 kg Jarrod Oberhauser YL-YZKZN-Kcbvss ke 2420 DO Work Phone: 12-07-2020 11:20-0500 BP Diastolic 98 mm[Hg] Jarrod Oberhauser JI-AFQBN-Ehdihb ke 2420 DO Work Phone: 12-07-2020 11:20-0500 BP Systolic 140 mm[Hg] [facility]-Unyxgk ke 2420 DO Work Phone: 12-07-2020 11:20-0500 BSA (Body Surface Area) 2.21 m2 Jarrod [facility]Bxreyebr 2420 DO Work Phone: 12-07-2020 11:20-0500 Height 154.94 cm [facility]-West[facility] ke 2420 DO Work Phone: 10-11-2020 11:09-0500 BMI (Body Mass Index) 56.68 kg/m2 [facility] Work Phone: 10-11-2020 11:09-0500 Body Temperature 97.7 [degF] [facility] Work Phone: 10-11-2020 11:09-0500 Body weight 136.08 kg [facility] Work Phone: 10-11-2020 11:09-0500 BSA (Body Surface Area) 2.24 m2 [facility] Work Phone: 10-11-2020 11:09-0500 Height 154.94 cm [facility] Work Phone: 10-10-2020 10:26-0500 BMI (Body Mass Index) 54.8 kg/m2 [facility] Work Phone: 10-10-2020 10:26-0500 Body Temperature 97.7 [degF] [facility] Work Phone: Comment on above: Method: Temporal 10-10-2020 10:26-0500 Body weight 131.54 kg [facility] Work Phone: 10-10-2020 10:26-0500 BP Diastolic 85 mm[Hg] Jarrod Ptaton [facility] Work Phone: Comment on above: Location: RUE; Position: Sitting 10-10-2020 10:26-0500 BP Systolic 135 mm[Hg] Jarrod Patton [facility] Work Phone: Comment on above: Location: RUE; Position: Sitting 10-10-2020 10:26-0500 BSA (Body Surface Area) 2.21 m2 Jarrod Patton [facility] Work Phone: 10-10-2020 10:26-0500 Height 154.94 cm Jarrod Patton [facility] Work Phone: 10-10-2020 10:26-0500 Pulse (Heart Rate) 104 /min Jarrod Patton [facility] Work Phone: Comment on above: Location: R Brachial Artery; Quality: Re gular 08-01-2020 13:01-0400 BMI (Body Mass Index) 53.85 kg/m2 Jarrod Patton [facility] Work Phone: 08-01-2020 13:01-0400 Body Temperature 98 [degF] Jarrod Patton [facility] Karoline n [facility] Work Phone: 08-01-2020 13:01-0400 Body weight 129.28 kg Jarrod Patton [facility] Work Phone: 08-01-2020 13:01-0400 BP Diastolic 84 mm[Hg] Jarrod Patton [facility] Work Phone: 08-01-2020 13:01-0400 BP Systolic 134 mm[Hg] Jarrod Patton [facility] Work Phone: 08-01-2020 13:01-0400 BSA (Body Surface Area) 2.2 m2 Jarrod Patton [facility] Work Phone: 08-01-2020 13:01-0400 Height 154.94 cm Jarrod Patton [facility] Work Phone: 08-01-2020 13:01-0400 Pulse (Heart Rate) 84 /min Jarrod Patton [facility] Work Phone: 07-06-2020 13:30-0400 BP Diastolic 80 mm[Hg] Jarrod Patton [facility] Work Phone: Comment on above: Location: LUE; Position: Sitting 07-06-2020 13:30-0400 BP Systolic 110 mm[Hg] Jarrod Patton [facility] Work Phone: Comment on above: Location: LUE; Position: Sitting 07-06-2020 13:30-0400 Height 154.94 cm Jarrod Patton [facility] Work Phone: 07-06-2020 13:30-0400 Pulse (Heart Rate) 88 /min Jarrod Patton [facility] Work Phone: Encounters Encounter Date Encounter Type Care Provider Facility Start: 05-02-2025 ambulatory Whit Shirley Facility :[facility] Start: 04-22-2025 End: 04-22-2025 Patient encounter procedure Whit V[facility]ARREALC [facility] Work Phone: Start: 04-22-2025 End: 04-22-2025 Patient encounter status Whit CRAMER [facility] Start: 04-22-2025 End: 04-22-2025 ambulatory Whit CRAMER Work Phone: [facility] Work Phone: Start: 04-22-2025 End: 04-22-2025 ambulatory Whit Shirley Facility:[facility] Start: 03-10-2025 End: 03-10-2025 Emergency department 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 Start: 07-16-2024 End: 07-16-2024 ambulatory Luke PRECIADO Facility:[facility] Start: 07-13-2024 End: 07-13-2024 Patient encounter procedure Nichelle Hsieh PA-C Work Phone: [facility] Comment on above: Acute URI (Primary D x); Nonspecific syndrome suggestive of viral illness Start: 07-13-2024 End: 07-13-2024 [facility] Start: 03-04-2024 End: 03-04-2024 Office outpatient visit 15 minutes Jarrod Patton DO Work Phone: [facility] Comment on above: Allergic reaction, s equela (Primary Dx) Start: 02-27-2024 End: 02-28-2024 ambulatory JARROD Siva PATTON [facility] Start: 02-21-2024 End: 02-21-2024 Emergency department patient visit JARROD Paniagua DAYNAREBECCA [facility] Emergency Medicine Comment on above: Allergic contact ruth matitis due to cosmetics (Primary Dx) Start: 02-10-2024 End: 02-11-2024 [facility] Start: 02-10-2024 End: 02-11-2024 Encounter for general adult medical examination without abnormal findings JARROD Paniagua DAYNAREBECCA [facility] Start: 02-10-2024 End: 02-10-2024 Initial preventive medicine new pt age 18-39yrs Jarrod Siva Abdi DO Work Phone: [facility] Comment on above: Weight gain (Primary Dx); Wellness examination; Obesity, morbid, BMI 50 or higher ([facility]/HCC) Start: 02-10-2024 End: 02-10-2024 Patient encounter status Jarrod Siva Erincharley DO Work Phone: [facility] Work Phone: Start: 12-20-2023 End: 12-20-2023 ambulatory JARROD Siva DAYNAIZABELSABINO [facility] Start: 03-13-2023 End: 03-13-2023 Emergency department patient visit Nichelle Hsieh [facility] Start: 01-09-2023 Chart Update Jarrod Weeks user Work Phone: [address] Work Phone: Start: 01-02-2023 Encounter for gynecological examination (general) (routine) without abnormal findings TAYLOR PARTIDA Facility:[facility] Start: 01-02-2023 Periodic preventive med est patient 18-39 yrs Jarrod Patton Work Phone: [address] Work Phone: Start: 01-02-2023 ambulatory Jarrod Patton Facili ty:[facility] Start: 04-17-2022 Chart Update Jarrod L Oberha user Work Phone: [facility] Work Phone: Start: 01-15-2022 Current tobacco non- user cad cap copd pv dm Jarrod Siva Oberhauser Work Phone: [facility] Work Phone: Start: 01-11-2022 End: 01-12-2022 Emergency department patient visit Neo Gómez [facility] Emergency 04 Start: 01-04-2022 AUDIT Jarrod L Oberha user Work Phone: [facility] Work Phone: Start: 12-18-2021 AUDIT Jarrod L Oberha user Work Phone: [facility] Work Phone: Start: 12-05-2021 Office outpatient vi sit 25 minutes Jarrodcarola Arvizueritzeler Work Phone: [facility] Work Phone: Start: 11-14-2021 AUDIT Jarrod L Oberha user Work Phone: [facility] Work Phone: Start: 11-14-2021 FUV, Provider: Jarrod Patton, Status: Pen, Time: 2:00 PM Jarrod Jeweller Work Phone: [facility] Work Phone: Start: 11-13-2021 AUDIT Jarrod L Oberha user Work Phone: [facility] Work Phone: Start: 10-30-2021 Chart Update Jarrod L Oberha user Work Phone: [facility] Work Phone: Start: 10-09-2021 Office outpatient vi sit 25 minutes Jarrod Jeweller Work Phone: [facility] Work Phone: Start: 08-10-2021 End: 08-10-2021 Emergency department patient visit Bel Dickson [facility] Emergency 15 Start: 08-01-2021 Office outpatient vi sit 15 minutes Jarrod Jeweller Work Phone: [facility] Work Phone: Start: 07-19-2021 End: 07-19-2021 Emergency department patient visit Von Morris [facility] Start: 06-14-2021 Office outpatient vi sit 25 minutes Jarrod Siva Obizabeler Work Phone: [facility] G[facility] 120 Work Phone: Start: 06-07-2021 Patient encounter procedure [facility] L Adbi [facility]: Start: 05-16-2021 Office outpatient vi sit 10 minutes Jarrod Jeweller Work Phone: [facility] Work Phone: Start: 04-16-2021 End: 04-16-2021 Emergency department patient visit Alexandra Srivastava [facility] Emergency 10 Start: 12-07-2020 Patient encounter procedure Jarrod [facility] 2420 DO Work Phone: Start: 11-07-2020 Patient encounter procedure Jarrod [facility] 2420 DO Work Phone: Start: 10-11-2020 Patient encounter procedure [facility] Work Phone: Start: 10-10-2020 Patient encounter procedure Jarrod Patton [facility] Work Phone: Start: 08-01-2020 Patient encounter procedure Jarrod Patton [facility] Work Phone: Start: 07-06-2020 Patient encounter procedure Jarrod Patton [facility] Work Phone: Start: 06-20-2020 Patient encounter procedure Jarrod Patton [facility] Work Phone: Start: 03-17-2020 Patient encounter procedure Jarrod Patton [facility] Work Phone: Start: 03-03-2020 Patient encounter procedure Jarrod Patton [facility] Work Phone: Start: 02-09-2020 Patient encounter procedure Jarrod Patton [facility] Work Phone: Start: 02-04-2020 Patient encounter procedure Jarrod Patton [facility] Work Phone: Start: 12-21-2019 Patient encounter procedure Jarrod Patton [facility] Work Phone: Start: 11-08-2019 Patient encounter procedure Jarrod Patton [facility] Work Phone: Start: 09-22-2019 Patient encounter procedure Jarrod Patton [facility] Work Phone: Start: 09-09-2017 End: 09-09-2017 Ambulatory MARELY [facility] Start: 06-18-2017 End: 06-18-2017 Ambulatory ANDIE Siva [facility] End: 11-22-2020 Patient encounter procedure Jarrod Patton Work Phone: [address] Work Phone: Comment on above: 11/07/2020-WNL; Patient encounter procedure Jarrod Patton Work Phone: [facility] Work Phone: Procedures Date Procedure Procedure Detail Performing Clinician Start: 04-22-2025 Dehydroepiandrostero ne sulfate level Whit Shirley COMPUTER BOOKKEEPERMarilynC Work Phone: Start: 04-22-2025 Follicle stimulating hormone measurement Whit Shirley NP-C Work Phone: Comment on above: FEMALE:Follicular: 1 .4 - 18.1 mIU/mLMidcycle: 3.4 - 33.4 mIU/mLLuteal: 1.5 - 9.1 mIU/mLPost Menopause: 23.0 - 116.3 mIU/mLMALE: 1.4 - 18.1 mIU/mL Start: 04-22-2025 Serum progesterone measurement Whit Shirley NP-C Work Phone: Comment on above: Follicular phase 0.1 - 0.9 Luteal phase 1.8 - 23.9 Ovulation phase 0.1 - 12.0 First trimester 11.0 - 44.3 Second trimester 25.4 - 83.3 Third trimester 58.7 - 214.0 Postmenopausal 0.0 - 0.1Performed at: [address] Director: David Tai PhD, Phone: [phone] Start: 04-22-2025 Vitamin D, 25-hydrox y measurement Whit Shirley NP-C Work Phone: Comment on above: Vitamin D StatusDefi ciency: <20 ng/mL (50nmol/L)Insufficiency: 20-30 ng/mL (50-75 nmol/L)Sufficiency: 30-100 ng/mL (75-250 nmol/L)Toxicity: >100 ng/mL (>250 nmol/L) Start: 07-13-2024 POCT SARS-COV-2/FLU/ RSV PCR SYMPTOMATIC Nichelle Hsieh PA-C Work Phone: Start: 02-27-2024 ALLERGEN CLAMS JARROD OB ERHAUSER Start: 02-27-2024 ALLERGEN CODFISH JARROD OBERHAUSER Start: 02-27-2024 ALLERGEN CORN JARROD OBE RHAUSER Start: 02-27-2024 ALLERGEN EGG WHITE HENRY N OBERHAUSER Start: 02-27-2024 ALLERGEN MILK JARROD OBE RHAUSER Start: 02-27-2024 ALLERGEN PEANUT IGE FLORA AN OBERHAUSER Start: 02-27-2024 ALLERGEN SCALLOP IGE ME JOAQUIM OBERHAUSER Start: 02-27-2024 ALLERGEN SESAME SEED IGE JARROD OBERHAUSER Start: 02-27-2024 ALLERGEN SHRIMP JARROD O BERHAUSER Start: 02-27-2024 ALLERGEN SOYBEAN JARROD OBERHAUSER Start: 02-27-2024 ALLERGEN WALNUT JARROD O BERHAUSER Start: 02-27-2024 ALLERGEN WHEAT IGE HENRY N OBERHAUSER Start: 02-27-2024 IMMUNOGLOBULIN IGE HENRY N OBERHAUSER Start: 02-10-2024 Comprehensive metabo lic 2000 panel - Serum or Plasma JARROD OBERHAUSER Start: 02-10-2024 DHEA JARROD ERIN CHARLEY Start: 02-10-2024 FOLLICLE STIMULATING HORMONE JARROD OBERHAUSER Start: 02-10-2024 Hemoglobin A1c/Hemog lobin.total in Blood JARROD OBERHAUSER Start: 02-10-2024 INSULIN, RANDOM JARROD O BERHAUSER Start: 02-10-2024 Lipid panel JARROD ERIN CHARLEY Start: 02-10-2024 LUTEINIZING HORMONE FLORA AN OBERHAUSER Start: 02-10-2024 TSH WITH REFLEX TO F REE T4 IF ABNORMAL JARROD OBERHAUSER Start: 02-10-2024 Lipid 1996 panel - S boo or Plasma Jarrod Oberhauser DO Work Phone: Start: 01-02-2023 Microscopic observat ion [Identifier] in Cervix by Cyto stain Jarrod Oberhauser DO Work Phone: Start: 01-04-2022 Lipid 1996 panel - S boo or Plasma Jarrod Oberhauser DO Work Phone: Start: 11-25-2020 Colonoscopy Jarrod Erin charley Start: 11-24-2020 End: 11-24-2020 Colonoscopy Jarrod Oberhauser Start: 11-24-2020 Colonoscopy Jarrod L Ob erhauser Work Phone: Start: 11-07-2020 Iadna chlamydia trac homatis amplified probe tq Jarrod Oberhauser Start: 10-16-2020 Colonoscopy Jarrod Erin charley Start: 09-05-2020 TR Rapid Strep Jarrod Ob erhauser Extraction of wisdom tooth M chin Siva Patton Work Phone: Tonsillectomy and adenoidectomy Jarrodcarola Patton Comment on above: 2018; Plan of Treatment Date Care Activity Detail Author Start: 2058 RSV patient s and/or patients aged 60+ years (1 - 1-dose 60+ series) RSV patients and/or patients aged 60+ years (1 - 1-dose 60+ series) [facility] Start: 2048 Zoster Vaccines (1 of 2) Zoste r Vaccines (1 of 2) [facility] Start: 02-09-2029 Lipid panel Lipid Panel [facility] Start: 01-04-2027 Lipid panel Lipid Panel [facility] Start: 01-02-2026 Screening for malign ant neoplasm of cervix [facility] Start: 12-08-2025 End: 12-08-2025 Patient encounter procedure 12/08/2025 4:15 PM EST Office Visit [facility] [address] [place] [id number] Steve Martin PA-C [address] [facility] [address] [place] [id number] [facility] Start: 11-29-2025 End: 11-29-2025 Patient encounter procedure 11/29/2025 9:00 AM EST Office Visit OB/Gynecology [address] [place] [address] Anu Kaur APRN.PRESS PULLER [address] [place] [address] Annual OB/Gynecology Comment on above: Annual Start: 04-22-2025 Comprehensive metabo lic 2000 panel - Serum or Plasma [facility] Start: 04-22-2025 Dehydroepiandrostero ne sulfate (DHEA-S) [Mass/volume] in Serum or Plasma [facility] Start: 04-22-2025 Estradiol (E2) [Mass /volume] in Serum or Plasma [facility] Start: 04-22-2025 Follicle stimulating hormone measurement [facility] Start: 04-22-2025 Hemoglobin A1c/Hemoglobin.total in Blood [facility] Start: 04-22-2025 Prolactin measurement [facility] Start: 04-22-2025 Serum progesterone measurement [facility] Start: 04-22-2025 T4 free measurement [facility] Start: 04-22-2025 Thyroid stimulating hormone measurement [facility] Start: 04-22-2025 Vitamin D, 25-hydrox y measurement [facility] Start: 04-22-2025 [facility] Start: 02-10-2025 Yearly Adult Physical Yearly A dult Physical [facility] Start: 07-11-2024 Covid-19 Vaccine () Covid-19 Vaccine () [facility] Start: 07-11-2024 Influenza vaccination [facility] Start: 05-26-2024 End: 05-26-2024 Patient encounter procedure 05/26/2024 10:40 AM EDT Office Visit [facility] [address] [place] [id number] Jarrod Patton, [address] [facility] [place] [address] [facility] Start: 02-10-2024 End: 02-09-2025 Comprehensive metabolic 2000 panel - Serum or Plasma Comprehensive Metabolic Panel Lab Routine Wellness examination Expected: 02/10/2024 (Approximate), Expires: 02/09/2025 [facility] Work Phone: Comment on above: Expected: 02/10/2024 (Approximate), Expires: 02/09/2025 Start: 02-10-2024 End: 02-09-2025 Dehydroepiandrosterone (DHEA) [Mass/volume] in Serum or Plasma DHEA Lab Routine Weight gain Expected: 02/10/2024 (Approximate), Expires: 02/09/2025 [facility] Work Phone: Comment on above: Expected: 02/10/2024 (Approximate), Expires: 02/09/2025 Start: 02-10-2024 End: 02-09-2025 Follitropin [Units/volume] in Serum or Plasma FSH Lab Routine Weight gain Expected: 02/10/2024 (Approximate), Expires: 02/09/2025 [facility] Work Phone: Comment on above: Expected: 02/10/2024 (Approximate), Expires: 02/09/2025 Start: 02-10-2024 End: 02-09-2025 Hemoglobin A1c/Hemoglobin.total in Blood Hemoglobin A1C Lab Routine Weight gain Expected: 02/10/2024 (Approximate), Expires: 02/09/2025 [facility] Work Phone: Comment on above: Expected: 02/10/2024 (Approximate), Expires: 02/09/2025 Start: 02-10-2024 End: 02-09-2025 Insulin [Units/volume] in Serum or Plasma Insulin, random Lab Routine Weight gain Expected: 02/10/2024 (Approximate), Expires: 02/09/2025 [facility] Work Phone: Comment on above: Expected: 02/10/2024 (Approximate), Expires: 02/09/2025 Start: 02-10-2024 End: 02-09-2025 Lipid 1996 panel - Serum or Plasma Lipid Panel Lab Routine Wellness examination Expected: 02/10/2024 (Approximate), Expires: 02/09/2025 [facility] Work Phone: Comment on above: Expected: 02/10/2024 (Approximate), Expires: 02/09/2025 Start: 02-10-2024 End: 02-09-2025 Lutropin [Units/volume] in Serum or Plasma Luteinizing hormone Lab Routine Weight gain Expected: 02/10/2024 (Approximate), Expires: 02/09/2025 [facility] Work Phone: Comment on above: Expected: 02/10/2024 (Approximate), Expires: 02/09/2025 Start: 02-10-2024 End: 02-09-2025 TSH with reflex to Free T4 if abnormal TSH with reflex to Free T4 if abnormal Lab Routine Weight gain Expected: 02/10/2024 (Approximate), Expires: 02/09/2025 [facility] Service Area Work Phone: Comment on above: Expected: 02/10/2024 (Approximate), Expires: 02/09/2025 Start: 07-11-2023 COVID-19 Vaccine () COVID-19 Vaccine () [facility] Start: 12-11-2022 Patient encounter procedure [facility] Start: 05-08-2022 FUV, Provider: Jarrod Patton, Status: Pen, Time: 8:40 AM FUV, Provider: Jarrod Patton, Status: Pen, Time: 8:40 AM [facility] Work Phone: Start: 04-17-2022 FUV, Provider: Jarrod Patton, Status: Pen, Time: 10:40 AM FUV, Provider: Jarrod Patton, Status: Pen, Time: 10:40 AM [facility] Work Phone: Start: 02-04-2022 EPVOGURDEEP, Provider: Babar Linn, Status: Pen, Time: 2:15 PM EPVOBINTL, Provider: Babar Linn, Status: Pen, Time: 2:15 PM [facility] Work Phone: Start: 02-04-2022 Patient encounter procedure [facility] Start: 01-30-2022 FUV, Provider: Jarrod Patton, Status: Pen, Time: 11:00 AM FUV, Provider: Jarrod Patton, Status: Pen, Time: 11:00 AM [facility] Work Phone: Start: 01-15-2022 FUV, Provider: Jarrod Patton, Status: Pen, Time: 11:40 AM FUV, Provider: Jarrod Patton, Status: Pen, Time: 11:40 AM [facility] Work Phone: Start: 01-15-2022 Patient encounter procedure [facility] [place] Start: 01-11-2022 End: 01-12-2023 Sodium Chloride 0.9% Infusion . ; IV Bag Volume = 1,000 mL Run at: 150 mL/hr IntraVenous Start: 11-Jan-2022 End: 11-Jan-2023 Ordered: 11-Jan-2022 Neo G[facility]mez [facility] Start: 12-05-2021 Patient encounter procedure AN NUAL, Provider: Babar Linn, Status: Pen, Time: 2:45 PM [facility] Work Phone: Start: 12-05-2021 FUV, Provider: Jarrod Patton, Status: Pen, Time: 10:20 AM FUV, Provider: Jarrod Patton, Status: Pen, Time: 10:20 AM [facility] Work Phone: Start: 11-14-2021 FUV, Provider: Jarrod Patton, Status: Pen, Time: 2:00 PM FUV, Provider: Jarrod Patton, Status: Pen, Time: 2:00 PM [facility] Work Phone: Start: 11-13-2021 Patient encounter procedure [facility] Start: 06-14-2021 FUV, Provider: Arabella Blount, Status: Pen, Time: 3:15 PM FUV, Provider: Arabella Dubois, Status: Pen, Time: 3:[address] Work Phone: Start: 06-14-2021 Patient encounter procedure [facility] Start: 11-24-2020 Colonoscopy Colonoscopy [facility] Work Phone: Start: 2020 DTaP/Tdap/Td Vaccine s (1 - Tdap) DTaP/Tdap/Td Vaccines (1 - Tdap) [facility] Start: 06-18-2020 DTaP/Tdap/Td Vaccine s (7 - Td or Tdap) DTaP/Tdap/Td Vaccines (7 - Td or Tdap) [facility] Start: 06-18-2020 Urine microalbumin profile DTa P,Tdap,Td Vaccine (7 - Td or Tdap) [facility] Start: 2019 Screening for malign ant neoplasm of cervix [facility] Start: 12-19-2017 Hepatitis A Vaccines (2 of 2 - 2-dose series) Hepatitis A Vaccines (2 of 2 - 2-dose series) [facility] Start: 2016 Anxiety Screening Anxiety Screening [facility] Start: 2016 Depression Screening Depression Scre ening [facility] Start: 2016 Hepatitis C screening Hepatiti s C Screening [facility] Start: 2016 HIV screening HIV Screening [facility] Start: 08-27-2013 MMR Vaccines (1 of 1 - Standard series) MMR Vaccines (1 of 1 - Standard series) [facility] Start: 08-27-2013 Varicella vaccination Varicell a Vaccines (1 of 2 - 13+ 2-dose series) [facility] Start: 2012 Peds To Adult Transi tion Annual Assessment Peds To Adult Transition Annual Assessment [facility] Start: 2010 Peds To Adult Transi tion Initial Discussion Peds To Adult Transition Initial Discussion [facility] Start: 2003 COVID-19 Vaccine (#1) COVID-19 Vaccine (#1) [facility] Start: 1998 COVID-19 Vaccine (#1) COVID-19 Vaccine (#1) [facility] Start: 1998 HIV screening HIV Screening [facility] Start: 1998 Yearly Adult Physical Yearly A dult Physical [facility] Alanine aminotransfe rase [Enzymatic activity/volume] in Serum or Plasma [facility] Albumin [Mass/volume ] in Serum or Plasma [facility] Alkaline phosphatase [Enzymatic activity/volume] in Serum or Plasma [facility] Anion gap in Serum or Plasma [facility] Bilirubin, total measurement [facility] BUN/Creatinine ratio [facility] Calcium [Mass/volume ] in Serum or Plasma [facility] Carbon dioxide, tota l [Moles/volume] in Central venous blood [facility] Creatinine [Mass/vol ume] in Serum or Plasma [facility] Glucose [Mass/volume ] in Serum or Plasma [facility] History of colonoscopy H/O colonoscopy [facility] History of tonsillectomy History of tonsillectomy [facility] Measurement of renal function [facility] Potassium measurement [facility] Serum chloride measurement [facility] Sodium measurement [facility] Total protein measurement [facility] Urea nitrogen [Mass/ volume] in Serum or Plasma [facility] US Pelvis [facility] Work Phone: NEGATED: Highlighted row has been ruled out! Planned Goals not documented [facility] Work Phone: Immunizations Immunization Date Immunization Notes Care Provider Angélica mullen 12-05-2021 influenza, injectabl e, quadrivalent, preservative free; Translations: [Flulaval Quadrivalent 0.5 ML Intramuscular Suspension Prefilled Syringe] Jarrod Patton Work Phone: [facility] Work Phone: Comment on above: Series: 12-05-2021 influenza, seasonal, injectable Jarrod Patton Work Phone: [facility] Work Phone: Comment on above: Series: 12-05-2021 influenza virus vaccine, unspecified formulation Jarrod Patton DO Work Phone: [facility] Work Phone: 06-18-2017 hepatitis A vaccine, pediatric/adolescent dosage, 2 dose schedule Jarrod Patton Work Phone: [facility] Work Phone: 06-18-2017 hepatitis A and hepatitis B vaccine Jarrod Patton DO Work Phone: [facility] Work Phone: 07-12-2016 meningococcal B vaccine, recombinant, OMV, adjuvanted Jarrod Patton Work Phone: [facility] Work Phone: 04-10-2016 meningococcal B vaccine, recombinant, OMV, adjuvanted Jarrod Jeweller Work Phone: [facility] Work Phone: 02-16-2015 meningococcal polysaccharide (groups A, C, Y and W-135) diphtheria toxoid conjugate vaccine (MCV4P) Jarrod Jewell Work Phone: [facility] Work Phone: 08-04-2014 influenza, live, intranasal, quadrivalent Jarrod Jeweller Work Phone: [facility] Work Phone: 07-30-2013 influenza, live, intranasal, quadrivalent Steve [employer] PA-C Work Phone: [facility] Work Phone: 07-30-2013 influenza virus vaccine, unspecified formulation Steve Stentz PA-C Work Phone: [facility] Work Phone: 07-29-2012 human papilloma viru s vaccine, quadrivalent Jarrod Jeweller Work Phone: [facility] Work Phone: 07-29-2012 influenza virus vaccine, live, attenuated, for intranasal use Jarrod Jeweller Work Phone: [facility] Work Phone: 04-01-2012 human papilloma viru s vaccine, quadrivalent Jarrod Jeweller Work Phone: [facility] Work Phone: 01-17-2012 human papilloma viru s vaccine, quadrivalent aJrrod Jeweller Work Phone: [facility] Work Phone: 06-18-2010 meningococcal polysaccharide (groups A, C, Y and W-135) diphtheria toxoid conjugate vaccine (MCV4P) Jarrod Jewell Work Phone: [facility] Work Phone: 06-18-2010 tetanus toxoid, redu chele diphtheria toxoid, and acellular pertussis vaccine, adsorbed Jarrod Patton Work Phone: [facility] Work Phone: 06-18-2010 varicella virus vaccine Henry Patton Work Phone: [facility] Work Phone: 09-14-2009 novel [id number], preservative-free, injectable Jarrod Patton Work Phone: [facility] Work Phone: 08-02-2009 influenza virus vaccine, live, attenuated, for intranasal use Jarrod Patton Work Phone: [facility] Work Phone: 10-13-2008 influenza virus vaccine, live, attenuated, for intranasal use Jarrod Patton Work Phone: [facility] Work Phone: 09-18-2007 influenza virus vaccine, live, attenuated, for intranasal use Jarrod Patton Work Phone: [facility] Work Phone: 09-09-2006 influenza virus vaccine, whole virus Jarrod Patton Work Phone: [facility] Work Phone: 03-10-2003 diphtheria, tetanus toxoids and pertussis vaccine Jarrod Patton Work Phone: [facility] Work Phone: 03-10-2003 measles, mumps and rubella virus vaccine Jarrod Arvizueritzeler Work Phone: [facility] Work Phone: 03-10-2003 poliovirus vaccine, inactivated Jarrod Jeweller Work Phone: [facility] Work Phone: 07-28-2001 varicella virus vaccine Henry Jeweller Work Phone: [facility] Work Phone: 10-29-1999 diphtheria, tetanus toxoids and acellular pertussis vaccine, unspecified formulation Jarrod Arvizueritzeler Work Phone: [facility] Work Phone: 10-29-1999 haemophilus influenz ae type b vaccine, conjugate unspecified formulation Jarrod Jeweller Work Phone: [facility] Work Phone: 10-29-1999 trivalent poliovirus vaccine, live, oral Jarrod Jeweller Work Phone: [facility] Work Phone: 09-14-1999 hepatitis B vaccine, pediatric or pediatric/adolescent dosage Jarrod Jeweller Work Phone: [facility] Work Phone: 09-14-1999 measles, mumps and rubella virus vaccine Jarrod Arvizuerhauser Work Phone: [facility] Work Phone: 02-16-1999 diphtheria, tetanus toxoids and acellular pertussis vaccine, unspecified formulation Jarrod Arvizueritzeler Work Phone: [facility] Work Phone: 02-16-1999 haemophilus influenz ae type b vaccine, HbOC conjugate Jarrod Arvizueritzeler Work Phone: [facility] Work Phone: 02-16-1999 hepatitis B vaccine, pediatric or pediatric/adolescent dosage Jarrod L Oberhauser Work Phone: [facility] Work Phone: 1998 diphtheria, tetanus toxoids and acellular pertussis vaccine, unspecified formulation Jarrod L Oberhauser Work Phone: [facility] Work Phone: 1998 haemophilus influenz ae type b vaccine, HbOC conjugate Jarrod L Oberhauser Work Phone: [facility] Work Phone: 1998 poliovirus vaccine, inactivated Jarrod L Oberhauser Work Phone: [facility] Work Phone: 1998 hepatitis B vaccine, pediatric or pediatric/adolescent dosage Jarrod L Oberhauser Work Phone: [facility] Work Phone: 1998 hepatitis B vaccine, pediatric or pediatric/adolescent dosage Jarrod L Oberhauser Work Phone: [facility] Work Phone: 1998 diphtheria, tetanus toxoids and acellular pertussis vaccine, unspecified formulation Jarrod L Oberhauser Work Phone: [facility] Work Phone: 1998 haemophilus influenz ae type b vaccine, HbOC conjugate Jarrod L Oberhauser Work Phone: [facility] Work Phone: 1998 poliovirus vaccine, inactivated Jarrod L Oberhauser Work Phone: [facility] Work Phone: Payers Date Payer Category Payer Private Health Insurance [id number] 2024 Self-pay 2023 Managed Care (Private) [facility] [id number] 2023 Private Health Insurance [id number] 2023 Private Health Insurance [id number] 2017 Unknown [id number] 2016 Unknown 2015 Unknown [id number] 1998 Unknown [id number]. 356 1998 Unknown [id number] [id number]. 356 1998 Unknown [id number]. 1069 1998 Unknown [id number]. 1245 1998 Unknown [id number] [id number]. 1244 1998 Unknown [id number] [id number]. 1243 1998 Unknown [id number] [id number]. 124 1998 Unknown [id number] 2.16.840.1.032240.3.579.2. 1243 1998 Unknown [id number] [id number]. 902 1998 Unknown [id number] 2.16.840.1.488656.3.579.2. 902 1998 Unknown [id number] [id number]. 1244 Private Health Insurance [id number] Unknown [id number] Unknown [id number] [id number]. 462 Unknown [id number] [id number]. 462 Unknown [id number] [id number]. 462 Unknown [id number] [id number]. 462 Unknown [id number]. 462 Social History Date Type Detail Facility Start: 04-16-2021 Occasional tob acco smoker [facility] Start: 02-10-2024 End: 12-07-2024 Denies alcohol consumption Denies alcohol consumption [address] Work Phone: Comment on above: Tea-; Tobacco smoking consumption unknown [facility] Start: 12-20-2023 End: 04-22-2025 Tobacco smoking status NHIS Never smoked tobacco [facility] Work Phone: Start: 12-20-2023 End: 11-23-2024 Tobacco use and exposure Smokeless tobacco non-user [facility] Work Phone: Start: 02-10-2024 End: 12-07-2024 Tobacco use panel [facility] Work Phone: Start: 1998 Sex Assigned At Not on file [facility] Work Phone: Start: 01-31-2024 End: 12-07-2024 Exposure to SARS-CoV-2 (event) Not sure [facility] Start: 02-21-2024 End: 12-07-2024 Alcoholic beverage intake Ex-drinker (finding) [facility] Work Phone: Start: 11-23-2024 Alcoholic beverage intake Lifetime non-drinker (finding) [facility] Frequency of Alcohol Consumption Never [facility] Start: 1998 Sex Assigned At Female [facility] NEGATED: Highlighted row - - [facility] Work Phone: Functional Status Date Assessment Result Facility NEGATED: Highlighted row Functional performance Functional status health issues are not documented Disease [facility] Work Phone: Mental Status Date Assessment Result Facility NEGATED: Highlighted row Cognitive function [Interpretation] Cognitive status health issues are not documented Disease [facility] Work Phone: Clinical Notes 08-01-2020 to 04-22-2025 Note Date & Type Note Facility 04-22-2025 Evaluation note Diagnosis Onset Date Resolution Infertility management acute Ju 2024 9:19am Irregular menses acute April 9:19am Obesity acute April 22 9:19am Encounter for routine gynecological examination noneactive April 22, 2025 9:19am [facility] Work Phone: 1(129) 130-129401-28-2025 History of Present illness Narrative* Steve Martin PA-C - 12/07/2024 4:15 PM EST Subjective Patient ID: Jeffery Anthony is a 24 y.o. female who presents for pt to est care. HPI Here to establish. 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 Review of Systems Constitutional: Negative. Respiratory: Negative. Cardiovascular: Negative. Gastrointestinal: Negative. Objective BP 130/82 Pulse 74 Ht 1.588 m (5' 2.5) Wt (!) 154 kg (340 lb) SpO2 99% BMI 61.20 kg/m Physical Exam Constitutional: General: She is not in acute distress. Appearance: Normal appearance. She is not ill-appearing. HENT: Head: Normocephalic and atraumatic. Eyes: Extraocular Movements: Extraocular movements intact. Conjunctiva/sclera: Conjunctivae normal. Cardiovascular: Rate and Rhythm: Normal rate. Pulmonary: Effort: Pulmonary effort is normal. Abdominal: General: There is no distension. Musculoskeletal: General: Normal range of motion. Cervical back: Normal range of motion. Skin: General: Skin is warm and dry. Neurological: General: No focal deficit present. Mental Status: She is alert and oriented to person, place, and time. Psychiatric: Mood and Affect: Mood normal. Behavior: Behavior normal. Thought Content: Thought content normal. Judgment: Judgment normal. Assessment/Plan Discussed diet/exercise. History of infertility, she will let me know if wanting referral. Follow up 1 year or sooner prn. [facility] Work Phone: 1(683) 594-550401-28-2025 Instructions* Patient Instructions* Steve Martin PA-C - 12/07/2024 4:15 PM EST Look into magnesium glycinate for headaches. [facility] Work Phone: 1(521) 133-832301-14-2025 NoteHNO ID: [id number] Author: ANU KAUR APRN.[employer]ER Service: ? Author Type: Nurse Practitioner Type: Progress Notes Filed: 11/23/2024 08:36 Note Text: Saxophone Teacher offered: Patient declines. Jeffery is a 24 year old who presents for an annual gynecologic exam with complaints, infertility issues- pcos . Patient and her has been trying for . She is having a regular monthly cycle and using ovulation kits that are positive for ovulation. Discussed with patient losing 5 to 10% of body weight can help improve chances of getting and carrying . She has had 2 early miscarriages. Still get period: Yes Bleeding amount bothersome: Yes Bleeding between periods: No Period symptoms: Acne; Breast tenderness; Cramps; Fecal incontinence (inability to control bowel movements); Mood change; Pelvic pain Time with current partner: 6 years Number of lifetime partners: 1 control frequency: Never HPV vaccine: Unsure; HPV:N/A Last pap smear: 2022 normal History of abnormal pap: No, all prior PAP smears have been normal Bothersome pelvic pain: No Last mammogram: never OB History No obstetric history on file. Block Sorter History LMP: 11/18/2024 Age at Menarche: 8 Age at First : Age at Menopause: Block Sorter History Comments: Sexual Activity: No sexual activity data on record; No partner data on record Contraception: No contraception data on record Menstrual Tracking History Flowsheet Row Office Visit from 11/23/2024 in OB/Gynecology Period Cycle (Days) 5 Period Duration (Days) 5 Menstrual Flow Heavy PAST MEDICAL HISTORY Diagnosis Date Seasonal allergies PAST SURGICAL HISTORY Procedure Laterality Date TONSILLECTOMY HX FAMILY HISTORY Problem Relation Age of Onset No Known Problems Mother No Known Problems Father No Known Problems Sister Diabetes Maternal Grandmother Hypertension Maternal Grandfather SOCIAL HISTORY Social History Tobacco Use Smoking status: Never Smokeless tobacco: Never Vaping Use Vaping status: Never Used Substance Use Topics Alcohol use: Never Drug use: Never REVIEW OF SYSTEMS Abdomen: No abdominal pain, nausea, vomiting, diarrhea, or constipation. No bloating, early satiety, indigestion, or increased flatulence. Bladder: No dysuria, gross hematuria, urinary frequency, urinary urgency, or incontinence. Breast: No breast lumps, nipple d/c, overlying skin changes, redness or skin retraction. Allergies and current medication updated:Yes SENSITIVE EXAM: Sensitive exam not performed. EXAM: BP 132/86 Ht 5' 3 (1.60m) Wt 342 lb (155.1kg) LMP 11/18/2024 BMI 60.60 kg/(m2). GENERAL: pleasant, female in no apparent distress HEENT: Normocephalic, atraumatic, mucus membranes moist, and no lesions CHEST: Normal inspiratory effort NEURO: alert and oriented x3,exam grossly non-focal EXTREMITIES: normal Patient declined exam today due to currently on menses ASSESSMENT/PLAN: 1) Health maintenance: Pap/HPV up to date. Mammogram starting age 40. Nutrition, exercise and routine health maintenance exams reviewed. Calcium/Vitamin D supplementation information provided. Colon cancer screening: start at age 45 2) Contraception: none. Contraceptive options reviewed and information provided. 3) STD screening: Declined STD check. 4) Follow up one year or sooner as needed [facility] History of Present illness Narrative* Anu Kaur APRN.BERNARDO - 11/23/2024 7:40 AM EST Saxophone Teacher offered: Patient declines. Jeffery is a 24 year old who presents for an annual gynecologic exam with complaints, infertility issues- pcos . Patient and her has been trying for . She is having a regular monthly cycle and using ovulation kits that are positive for ovulation. Discussed with patient losing 5 to 10% of body weight can help improve chances of getting and carrying . She has had 2 early miscarriages. Still get period: Yes Bleeding amount bothersome: Yes Bleeding between periods: No Period symptoms: Acne; Breast tenderness; Cramps; Fecal incontinence (inability to control bowel movements); Mood change; Pelvic pain Time with current partner: 6 years Number of lifetime partners: 1 control frequency: Never HPV vaccine: Unsure; HPV:N/A Last pap smear: 2022 normal History of abnormal pap: No, all prior PAP smears have been normal Bothersome pelvic pain: No Last mammogram: never OB History No obstetric history on file. Block Sorter History LMP: 11/18/2024 Age at Menarche: 8 Age at First : Age at Menopause: Block Sorter History Comments: Sexual Activity: No sexual activity data on record; No partner data on record Contraception: No contraception data on record Menstrual Tracking History Flowsheet Row Office Visit from 11/23/2024 in OB/Gynecology Period Cycle (Days) 5 Period Duration (Days) 5 Menstrual Flow Heavy PAST MEDICAL HISTORY Diagnosis Date Seasonal allergies PAST SURGICAL HISTORY Procedure Laterality Date TONSILLECTOMY HX FAMILY HISTORY Problem Relation Age of Onset No Known Problems Mother No Known Problems Father No Known Problems Sister Diabetes Maternal Grandmother Hypertension Maternal Grandfather SOCIAL HISTORY Social History Tobacco Use Smoking status: Never Smokeless tobacco: Never Vaping Use Vaping status: Never Used Substance Use Topics Alcohol use: Never Drug use: Never REVIEW OF SYSTEMS Abdomen: No abdominal pain, nausea, vomiting, diarrhea, or constipation. No bloating, early satiety, indigestion, or increased flatulence. Bladder: No dysuria, gross hematuria, urinary frequency, urinary urgency, or incontinence. Breast: No breast lumps, nipple d/c, overlying skin changes, redness or skin retraction. Allergies and current medication updated:Yes SENSITIVE EXAM: Sensitive exam not performed. EXAM: BP 132/86 Ht 5' 3 (1.60m) Wt 342 lb (155.1kg) LMP 11/18/2024 BMI 60.60 kg/(m^2). GENERAL: pleasant, female in no apparent distress HEENT: Normocephalic, atraumatic, mucus membranes moist, and no lesions CHEST: Normal inspiratory effort NEURO: alert and oriented x3,exam grossly non-focal EXTREMITIES: normal Patient declined exam today due to currently on menses ASSESSMENT/PLAN: 1) Health maintenance: Pap/HPV up to date. Mammogram starting age 40. Nutrition, exercise and routine health maintenance exams reviewed. Calcium/Vitamin D supplementation information provided. Colon cancer screening: start at age 45 2) Contraception: none. Contraceptive options reviewed and information provided. 3) STD screening: Declined STD check. 4) Follow up one year or sooner as needed Anu Kaur APRN.PRESS PULLER [facility] History of Present illness Narrative* Nichelle Hsieh PA-C - 07/13/2024 10:55 AM EDT [facility] NOTE: Name: Jeffery Anthony, 24 y.o. CSN:[id number] PCP: Jarrod Patton, DO ALL: Allergies Allergen Reactions Cephalexin Rash and Unknown Penicillins Rash and Runny nose Bee Pollen Itching Horse Dander Standardized Allergenic Extract Itching House Dust Mite Other Sulfa (Sulfonamide Antibiotics) Rash History: Chief Complaint: URI (Body aches, diarrhea, chills, cough, congestion, ear discomfort, scratchy throat X 2 days ) Encounter Date: 07/13/2024 HPI: The history was obtained from the patient. Jeffery is a 24 y.o. female, who presents with a chief complaint of URI (Body aches, diarrhea, chills, cough, congestion, ear discomfort, scratchy throat X 2 days ) . She has been nauseous, having some diarrhea spells, modest sinus pressure and congestion, had 1 episode of vomiting that was nonbloody or nonbilious. She has missed work and is looking for a work release. PMHx: Past Medical History: Diagnosis Date Encounter for gynecological examination (general) (routine) without abnormal findings 11/22/2020 Women's annual routine gynecological examination Other conditions influencing health status Menstruation Current Outpatient Medications Medication Sig Dispense Refill promethazine-DM (Phenergan-DM) 6.25-15 mg/5 mL syrup Take 5 mL by mouth 4 times a day as needed forcough for up to 7 days. 118 mL 0 No current facility-administered medications for this visit. PMSx: Past Surgical History: Procedure Laterality Date OTHER SURGICAL HISTORY 10/21/2019 Tonsillectomy with adenoidectomy OTHER SURGICAL HISTORY 12/05/2021 [place] tooth extraction OTHER SURGICAL HISTORY 12/07/2020 Colonoscopy Fam Hx: No family history on file. SOC. Hx: Social History Socioeconomic History Marital status: Single Spouse name: Not on file Number of children: Not on file Years of education: Not on file Highest education level: Not on file Occupational History Not on file Tobacco Use Smoking status: Never Smokeless tobacco: Never Substance and Sexual Activity Alcohol use: Not Currently Drug use: Never Sexual activity: Not on file Other Topics Concern Not on file Social History Narrative Not on file Social Determinants of Health Financial Resource Strain: Not on file Food Insecurity: Not on file Transportation Needs: Not on file Physical Activity: Not on file Stress: Not on file Social Connections: Not on file Intimate Partner Violence: Not on file Housing Stability: Not on file Vitals: 07/13/24 1130 BP: 125/88 Pulse: 86 Resp: 18 Temp: 36.2 C (97.1 F) SpO2: 97% 145 kg (320 lb) Physical Exam Vitals reviewed. Constitutional: Appearance: Normal appearance. She is normal weight. HENT: Head: Normocephalic and atraumatic. Nose: Nose normal. Mouth/Throat: Mouth: Mucous membranes are moist. Eyes: Extraocular Movements: Extraocular movements intact. Cardiovascular: Rate and Rhythm: Normal rate and regular rhythm. Pulmonary: Effort: Pulmonary effort is normal. Breath sounds: Normal breath sounds. Abdominal: General: Abdomen is flat. Musculoskeletal: General: Normal range of motion. Cervical back: Normal range of motion and neck supple. Skin: General: Skin is warm. Capillary Refill: Capillary refill takes less than 2 seconds. Neurological: Mental Status: She is alert and oriented to person, place, and time. Psychiatric: Behavior: Behavior normal. LABORATORY @ RADIOLOGICAL IMAGING (if done): Results for orders placed or performed in visit on 07/13/24 (from the past 24 hour(s)) POCT SARS-COV-2/FLU/RSV PCR SYMPTOMATIC manually resulted Result Value Ref Range POC Coronavirus 2019, PCR Not Detected Not Detected POC Flu A Result Not Detected Not Detected POC Flu B Result Not Detected Not Detected POC RSV PCR Not Detected Not Detected I did personally review Jeffery's past medical history, surgical history, social history, as well as family history (when relevant). In this case, I also oversaw the her drug management by reviewing her medication list, allergy list, as well as the medications that I prescribed during the UC courseand/or recommended as an out-patient (including possible OTC medications such as acetaminophen, NSAIDs , etc). After reviewing the items above, I did look at previous medical documentation, such as recent hospitalizations, office visits, and/or recent consultations with PCP/specialist. SDOH: Another factor that I considered in Jeffery's care was her Social Determinants of Health (SDOH). During this UC encounter, she did not have social determinants of health. Those SDOH influencingJeffery's care are: none UC COURSE/MEDICAL DECISION MAKING: Jeffery is a 24 y.o., who presents with a working diagnosis of 1. Acute URI 2. Nonspecific syndrome suggestive of viral illness with a differential to include: Influenza, parainfluenza, rhinovirus, adenovirus, metapneumovirus, coronavirus, COVID-19, postnasal drip, strep pharyngitis, GERD, retropharyngeal abscess, tonsillitis, adenitis, seasonal allergies Supportive care was recommended and will be provided patient with antitussives and antiemetic to overall address some of her symptoms. She was agreeable this plan we discussed side effects potentially with the prescription treatment and lab results with the her over the phone. Nichelle Hsieh PA-C Advanced Practice Provider [facility] documented in this [facility] Work Phone: 1(367) 985-958604-25-2024 History of Present illness Narrative* Jarrod Patton, - 03/04/2024 10:00 AM EDT Subjective Patient ID: Jeffery Anthony is a 23 y.o. female who presents for No chief complaint on file.. HPI Patient is here today for ED follow up Pt states that she got her hair dyed, she was itching that NIGHT, she normally reacts to a lot of things, she then had swelling in the back of her head and then it extended into her face with eye swelling. She was given antihistamine, pepcid and prednisone. Two days later she had such severe selling that she felt like she was having trouble breathing and her eyes were really swollen. She went back to the ED and she was given a steroid injection and increased her steroid dosing. She states that it took the rest of that week for most of the swelling to resolve. Now having congestion still. She finished the prednisone. Rash has resolved. Review of Systems Constitutional: Negative for activity change, appetite change, chills and fatigue. HENT: Negative for congestion, postnasal drip, sinus pressure, sinus pain and sore throat. Respiratory: Negative for cough, shortness of breath and wheezing. Cardiovascular: Negative for chest pain and leg swelling. Gastrointestinal: Negative for abdominal distention, diarrhea, nausea and vomiting. Musculoskeletal: Negative for back pain. Skin: +itching Neurological: Negative for weakness and numbness. Objective LMP 02/09/2024 (Approximate) Physical Exam No physical exam was completed due to virtual visit. Assessment/Plan Problem List Items Addressed This Visit Allergic reaction - Primary Allergic reaction to hair dye - had significant swelling, angioedema and rash - finished prednisone - advised adding flonase to claritin - did see ENT and discussing allergy shots Final diagnoses: [T78.40XS] Allergic reaction, sequela documented in this [facility] Work Phone: 1(166) 352-672804-13-2024 Emergency department Note* Sabrina Maza PA-C - 02/21/2024 10:11 AM EDT Images from the original note were not included. HPI Chief Complaint Patient presents with Allergic Reaction Allergic reaction to hair dye. Had hair done on Friday and now has facial swelling. Throat feelsirritated, no signs of airway edema Patient presents with scalp itching after using hair dye. States she dyed her hair to 3 days ago. Started developing itching and redness. She denies any lesions. She tried [id number]-fteljlo Benadryl with some relief. States this happened prior with other hair dyes. Patient denies any throat swellingor tongue swelling. No trouble breathing. No near syncope. No chest pain or shortness of breath History provided by: Patient Denny Coma Scale Score: 15 Patient History Past Medical History: Diagnosis Date Encounter for gynecological examination (general) (routine) without abnormal findings 11/22/2020 Women's annual routine gynecological examination Other conditions influencing health status Menstruation Past Surgical History: Procedure Laterality Date OTHER SURGICAL HISTORY 10/21/2019 Tonsillectomy with adenoidectomy OTHER SURGICAL HISTORY 12/05/2021 [place] tooth extraction OTHER SURGICAL HISTORY 12/07/2020 Colonoscopy No family history on file. Social History Tobacco Use Smoking status: Never Smokeless tobacco: Never Substance Use Topics Alcohol use: Not Currently Drug use: Never Physical Exam ED Triage Vitals [02/21/24 1016] Temperature Heart Rate Respirations BP 37 C (98.6 F) 87 18 (!) 196/88 Pulse Ox Temp Source Heart Rate Source Patient Position 97 % Temporal -- -- BP Location FiO2 (%) -- -- Physical Exam Vitals and nursing note reviewed. Constitutional: General: She is not in acute distress. Appearance: Normal appearance. She is well-developed and well-groomed. She is obese. She is not ill-appearing or toxic-appearing. HENT: Head: Normocephalic. Right Ear: Ear canal and external ear normal. Left Ear: Ear canal and external ear normal. Nose: Nose normal. Mouth/Throat: Lips: Arrey. No lesions. Mouth: Mucous membranes are moist. Pharynx: No oropharyngeal exudate or posterior oropharyngeal erythema. Eyes: General: No scleral icterus. Conjunctiva/sclera: Conjunctivae normal. Cardiovascular: Rate and Rhythm: Normal rate and regular rhythm. Heart sounds: Normal heart sounds. Pulmonary: Effort: Pulmonary effort is normal. Breath sounds: Normal breath sounds and air entry. Skin: Capillary Refill: Capillary refill takes less than 2 seconds. Neurological: General: No focal deficit present. Mental Status: She is alert and oriented to person, place, and time. Cranial Nerves: No cranial nerve deficit or facial asymmetry. Sensory: No sensory deficit. Motor: No weakness. Gait: Gait normal. Psychiatric: Attention and Perception: Attention and perception normal. Mood and Affect: Mood and affect normal. Speech: Speech normal. Behavior: Behavior normal. Behavior is cooperative. Thought Content: Thought content normal. Cognition and Memory: Cognition and memory normal. Judgment: Judgment normal. ED Course & MDM Diagnoses as of 02/21/24 1031 Allergic contact dermatitis due to cosmetics Medical Decision Making Patient presents with scalp itching after using hair dye. States she dyed her hair to 3 days ago. Started developing itching and redness. She denies any lesions. She tried dxlx-drb-pknklqk Benadryl with some relief. States this happened prior with other hair dyes. Patient denies any throat swellingor tongue swelling. No trouble breathing. No near syncope. No chest pain or shortness of breath Ddx: Contact dermatitis, irritant, other Will treat patient with steroids and Pepcid. She took Benadryl prior to arrival. Prescriptions for home for 4 additional days of prednisone with Pepcid and continue Benadryl. Patient encouraged to discontinue using these types of dyes. Patient encouraged to follow-up with primary care provider within the next 1 to 2 days for follow-up care. Patient discharged home in improved stable condition Problems Addressed: Allergic contact dermatitis due to cosmetics: undiagnosed new problem with uncertain prognosis Details: Treatment with steroids Pepcid and Benadryl. First dose given in the ED Risk OTC drugs. Prescription drug management. Diagnosis or treatment significantly limited by social determinants of health. Procedure Procedures Sabrina Maza PA-C 02/21/24 1031 [facility]: [phone]) [phone] Physician Emergency department Note* Sabrina Maza PA-C - 02/21/2024 10:11 AM EDT Images from the original note were not included. HPI Chief Complaint Patient presents with Allergic Reaction Allergic reaction to hair dye. Had hair done on Friday and now has facial swelling. Throat feelsirritated, no signs of airway edema Patient presents with scalp itching after using hair dye. States she dyed her hair to 3 days ago. Started developing itching and redness. She denies any lesions. She tried prod-uoc-yhhjunx Benadryl with some relief. States this happened prior with other hair dyes. Patient denies any throat swellingor tongue swelling. No trouble breathing. No near syncope. No chest pain or shortness of breath History provided by: Patient Denny Coma Scale Score: 15 Patient History Past Medical History: Diagnosis Date Encounter for gynecological examination (general) (routine) without abnormal findings 11/22/2020 Women's annual routine gynecological examination Other conditions influencing health status Menstruation Past Surgical History: Procedure Laterality Date OTHER SURGICAL HISTORY 10/21/2019 Tonsillectomy with adenoidectomy OTHER SURGICAL HISTORY 12/05/2021 [place] tooth extraction OTHER SURGICAL HISTORY 12/07/2020 Colonoscopy No family history on file. Social History Tobacco Use Smoking status: Never Smokeless tobacco: Never Substance Use Topics Alcohol use: Not Currently Drug use: Never Physical Exam ED Triage Vitals [02/21/24 1016] Temperature Heart Rate Respirations BP 37 C (98.6 F) 87 18 (!) 196/88 Pulse Ox Temp Source Heart Rate Source Patient Position 97 % Temporal -- -- BP Location FiO2 (%) -- -- Physical Exam Vitals and nursing note reviewed. Constitutional: General: She is not in acute distress. Appearance: Normal appearance. She is well-developed and well-groomed. She is obese. She is not ill-appearing or toxic-appearing. HENT: Head: Normocephalic. Right Ear: Ear canal and external ear normal. Left Ear: Ear canal and external ear normal. Nose: Nose normal. Mouth/Throat: Lips: Arrey. No lesions. Mouth: Mucous membranes are moist. Pharynx: No oropharyngeal exudate or posterior oropharyngeal erythema. Eyes: General: No scleral icterus. Conjunctiva/sclera: Conjunctivae normal. Cardiovascular: Rate and Rhythm: Normal rate and regular rhythm. Heart sounds: Normal heart sounds. Pulmonary: Effort: Pulmonary effort is normal. Breath sounds: Normal breath sounds and air entry. Skin: Capillary Refill: Capillary refill takes less than 2 seconds. Neurological: General: No focal deficit present. Mental Status: She is alert and oriented to person, place, and time. Cranial Nerves: No cranial nerve deficit or facial asymmetry. Sensory: No sensory deficit. Motor: No weakness. Gait: Gait normal. Psychiatric: Attention and Perception: Attention and perception normal. Mood and Affect: Mood and affect normal. Speech: Speech normal. Behavior: Behavior normal. Behavior is cooperative. Thought Content: Thought content normal. Cognition and Memory: Cognition and memory normal. Judgment: Judgment normal. ED Course & MDM Diagnoses as of 02/21/24 1031 Allergic contact dermatitis due to cosmetics Medical Decision Making Patient presents with scalp itching after using hair dye. States she dyed her hair to 3 days ago. Started developing itching and redness. She denies any lesions. She tried irct-vsb-svwmiep Benadryl with some relief. States this happened prior with other hair dyes. Patient denies any throat swellingor tongue swelling. No trouble breathing. No near syncope. No chest pain or shortness of breath Ddx: Contact dermatitis, irritant, other Will treat patient with steroids and Pepcid. She took Benadryl prior to arrival. Prescriptions for home for 4 additional days of prednisone with Pepcid and continue Benadryl. Patient encouraged to discontinue using these types of dyes. Patient encouraged to follow-up with primary care provider within the next 1 to 2 days for follow-up care. Patient discharged home in improved stable condition Problems Addressed: Allergic contact dermatitis due to cosmetics: undiagnosed new problem with uncertain prognosis Details: Treatment with steroids Pepcid and Benadryl. First dose given in the ED Risk OTC drugs. Prescription drug management. Diagnosis or treatment significantly limited by social determinants of health. Procedure Procedures Sabrina Maza PA-C 02/21/24 1031 [facility] Work Phone: 1([phone]) 535-961504-02-2024 History of Present illness Narrative* Jarrod Siva Abdi, - 02/10/2024 9:00 AM EDT Subjective Patient ID: Jeffery Anthony is a 23 y.o. female who presents for Annual Exam. HPI Patient is here today for annual exam. Pt reports that she has been struggling to loose weight, her has been doing the same diet that she is and he has lost 80 lbs and she has gained [address] Linn and tried things to get without success. She said manager gyn told her that she does not have pcos. Her periods are irregular and heavy. Review of Systems Constitutional: Positive for unexpected weight change. Negative for activity change, appetite change, chills and fatigue. HENT: Negative for congestion, postnasal drip, sinus pressure, sinus pain and sore throat. Respiratory: Negative for cough, shortness of breath and wheezing. Cardiovascular: Negative for chest pain and leg swelling. Gastrointestinal: Negative for abdominal distention, diarrhea, nausea and vomiting. Musculoskeletal: Negative for back pain. Neurological: Negative for weakness and numbness. Objective BP 126/82 Pulse 85 Ht 1.58 m (5' 2.21) Wt 146 kg (321 lb) BMI 58.32 kg/m Physical Exam Constitutional: General: She is not in acute distress. Appearance: Normal appearance. HENT: Head: Normocephalic. Nose: Nose normal. Mouth/Throat: Pharynx: No oropharyngeal exudate. Eyes: General: Right eye: No discharge. Left eye: No discharge. Extraocular Movements: Extraocular movements intact. Pupils: Pupils are equal, round, and reactive to light. Cardiovascular: Rate and Rhythm: Normal rate and regular rhythm. Heart sounds: No murmur heard. No gallop. Pulmonary: Effort: Pulmonary effort is normal. No respiratory distress. Breath sounds: Normal breath sounds. No wheezing. Musculoskeletal: General: No swelling. Normal range of motion. Skin: General: Skin is warm and dry. Coloration: Skin is not jaundiced. Neurological: General: No focal deficit present. Mental Status: She is alert and oriented to person, place, and time. Cranial Nerves: No cranial nerve deficit. Psychiatric: Mood and Affect: Mood normal. Behavior: Behavior normal. Immunizations Flu shot 2021 COVID declines PNA -- Shingles -- RSV -- Pap 2022 Mammo -- DeXA -- Colon cancer -- Assessment/Plan Problem List Items Addressed This Visit Weight gain - Primary Relevant Orders TSH with reflex to Free T4 if abnormal Insulin, random DHEA Hemoglobin A1C FSH Luteinizing hormone Wellness examination Relevant Orders Comprehensive Metabolic Panel Lipid Panel Obesity, morbid, BMI 50 or higher (CMS/HCC) Relevant Medications tirzepatide, weight loss, (Zepbound) 2.5 mg/0.5 mL injection Obesity, bmi 58 - will repeat labs and see If she has PCOS - will send in zepbound and see if she has any coverage for weight loss meds - discussed other oral options Final diagnoses: [R63.5] Weight gain [Z00.00] Wellness examination [E66.01] Obesity, morbid, BMI 50 or higher (CMS/HCC) [facility] Phone: 1(876) 307-467702-23-2023 NoteAccession #: [id number] Date of Procedure: 01/02/2023 Pathologist: [facility] Date Reported: 01/09/2023 Date Received: 01/02/2023 Submitting Physician: TAYLOR PARTIDA CNM [employer] FINAL CYTOLOGICAL INTERPRETATION A. THINPREP PAP CERVICAL: Specimen adequacy: SATISFACTORY FOR EVALUATION. Quality Indicator: Endocervical/transformation zone component is present. Quality Indicator: Partially obscuring inflammation. General Categorization: NEGATIVE FOR INTRAEPITHELIAL LESION OR MALIGNANCY. Descriptive Interpretation: SHIFT IN VAGINAL EDISON SUGGESTIVE OF BACTERIAL VAGINOSIS. Ancillary Testing: Specimen does not meet the requisition-stated criteria for HPV testing. See Pap test interpretation above. QC review performed at [facility], [address] [place] [address] This specimen has been analyzed by the ProtoSharePrep Imaging System ([employer] an automated imaging and review system, which assists the laboratory in evaluating cells on ThinPrep Pap tests. Following automated imaging, selected joshi from every slide were reviewed by a diversity specialist and/or pathologist. Electronically Signed Out By [facility], Cytology//CRR/JMD By the signature on this report, the individual or group listed as making the Final Interpretation/Diagnosis certifies that they have reviewed this case. Diagnostic interpretation performed at [facility] [address] [facility]. [place] [id number] Educational Note: Cervical cytology is a screening procedure primarily for squamous cancers and precursors and has associated false-negative and false-positive results as evidenced by published data. Your patient?s test should be interpreted in this context, together with patient?s history and clinical findings. Regular sampling and follow-up of unexplained clinical signs and symptoms are recommended to minimize false negative results. Clinical History Date of Last Menstrual Period: 12/23/22 Other Clinical Conditions: HPV Reflex for ASC-US only - Include HPV Genotype Annual Clinical Diagnosis History: Screening for cervical cancer - (Z12.4); Women's annual routine gynecological examination - (Z01.419) Source of Specimen A: THINPREP PAP CERVICAL [facility] Department of Pathology [address] [place], [place] [address]Comment on above:Performed By: #### C #### [facility] Cytology [address] [place] [address] [phone] History of Present illness Narrative* Patient is here today for follow up * She had covid in early November, she is still having some residual symptoms. * She is still having coughing, sneezing, body aches, headaches, bad body aches. No fevers. * Patient feels like her anxiety has been worse since she had the covid. * She had stopped taking her amitriptyline for a while but once she stopped taking because she had run out. she realized that it really was helping her migraines, * She is going to be going back to work at [employer]. She has has allergies to multiple medications and she is becoming increasingly sensitive to medications or other substances. She has not had a reaction to flu or other Immunizations but she is concerned regarding the covid vaccines that she could possibly have a reaction. [facility] Work Phone: 1([phone]) 825-327911-23-2021 History of Present illness Narrative* Patient is here today for bump on her head. * she reports that she had noticed it in the last week or so, she rpeorts that it is sore, she has headaches sometimes but she did not think anything of it, does not think it has gotten larger. Denies any head trauma. * It is all time sensitivity, not just when she has a headache. * She gets migraines multiple times a week if not every day. Does feel pressure in her head and gets spots in her vision. Usually uses Excedrin migraine. [facility] Work Phone: [phone]) [phone] History of Present illness Narrative* Patient is here today for urgent care follow up on foot pain. * Patient reports that she has a history of stress fracture in her left foot, last time she was treated was over a year ago. Pain started after she stepped wrong while wearing crocks. Within a few hours she had pain in the top of her foot and it started hurting like when she [previously had a foot fracture. Has seen Dr Saeed in the past but has insurance and will need to see Doctors. Had xray at urgent care a nd they put her in an air cast which popped. She cannot find her old foot as she moved recently. [facility] Work Phone: Evaluation note* Diagnosis Weight gain- Primary Other symptoms concerning nutrition, metabolism, and development Wellness examination Obesity, morbid, BMI 50 or higher (CMS/HCC) documented in this encounter [facility] Work Phone: Evaluation note* Diagnosis Allergic contact dermatitis due to cosmetics- Primary documented in this encounter [facility] Work Phone: Evaluation note* Diagnosis Allergic reaction, sequela- Primary documented in this encounter [facility] Work Phone: Evaluation note* Diagnosis Acute URI- Primary Acute upper respiratory infections of unspecified site Nonspecific syndrome suggestive of viral illness documented in this encounter [facility] Work Phone: Evaluation note* Diagnosis Encounter for gynecological examination (general) (routine) without abnormal findings- Primary [facility] Infertility, female- Primary BMI 60.0-69.9, adult (Multi) documented in this encounter [facility] Work Phone: Evaluation note* Diagnosis Onset Date Resolution Status Admit Date Encounter for routine gynecological examination noneactive April 10 3th, 2024 9:19am [facility] Work Phone: History of Present illness [id number] presents for discussion about fertility. Patient is she is off of control August. Patient notes she had a miscarriage confirmed in the ED in November. Patient like discussed why she not getting . Patient's family think she has PCOS. Patient notes regular menstrual cycles now. Patient notes monthly. Patient taking vitamins.[facility] Work Phone: History of Present illness NarrativePatient seen today in follow-up he is having worsening diarrhea. 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 Refused Xifaxan initially but now request prescription. Is having 6-8 stools daily with urgency. No incontinence. Associate abdominal bloating. Does feel like she has excessive gas at this time. [facility] Work Phone: History of Present illness Narrative* Patient is here today for 2 mo follow up * Pt had a late period, she had multiple home tests that were positive. * She was concerned that she was with her migraine medications [facility] Work Phone: History of Present illness Narrative* Pt. presents for annual exam * Reports nl pap 2019 * trying to conceive x 1 year. Pt. reports monthly menses and normal bloodwork with Dr. Linn * partner has not had sperm analysis [facility] Work Phone: Hospital Discharge instructions* Attachments The following attachments cannot be sent through Care Everywhere. * Contact dermatitis (Algerian) [facility] reason for referral (narrative)* Consultation (Routine) - Authorized Specialty Diagnoses / Procedures Referred By Contac t Referred To Contact Primary Care Procedures Follow Up In Primary Care - Established Jarrod Patton DO [address] [facility] Physician [place] [id number] Referral ID Status Reason Start Date Expiration Date V isits Requested Visits Authorized [id number] Authorized 02/10/2024 02/09/2025 1 1 * Medications - Pending Review Specialty Diagnoses / Procedures Referred By Contac t Referred To Contact Diagnoses Obesity, morbid, BMI 50 or higher (CMS/HCC) Jarrod Patton, [address] [facility] [place] [address] Referral ID Status Reason Start Date Expiration Date V isits Requested Visits Authorized [id number] Pending Review 1 1 [facility] Work Phone: reason for referral (narrative)* Consultation (Routine) - Authorized Specialty Diagnoses / Procedures Referred By Contac t Referred To Contact Primary Care Procedures Follow Up In Primary Care - Established Steve Martin PA-C [address] [facility], [address] [address] Phone: tel: fax: Referral ID Status Reason Start Date Expiration Date V isits Requested Visits Authorized [id number] Authorized 12/07/2024 12/07/2025 1 1 [facility] Work Phone: [place] for referral (narrative)No reason for referral [facility] Work Phone: Summary Purpose Family History No Family History Records Found Grandparent Name Dates Details Family history of hyperlipid emia(V18.19, Z83.438) Status:Active Family history of diabetes m ellitus(V18.0, Z83.3) Status:Active Family history of hypertensi on(V17.49, Z82.49) Status:Active Mother Name Dates Details Family history of arthritis( V17.7, Z82.61) Status:Active Father Name Dates Details Family history of Healthy ad ult Status:Active Sister Name Dates Details Family history of Healthy ad ult Status:Active Grandparent Name Dates Details Family history of hyperlipid emia(V18.19, Z83.438) Status:Active Family history of diabetes m ellitus(V18.0, Z83.3) Status:Active Family history of hypertensi on(V17.49, Z82.49) Status:Active Mother Name Dates Details Family history of arthritis( V17.7, Z82.61) Status:Active Father Name Dates Details Family history of Healthy ad ult Status:Active Sister Name Dates Details Family history of Healthy ad ult Status:Active Grandparent Name Dates Details Family history of hyperlipid emia(V18.19, Z83.438) Status:Active Family history of diabetes m ellitus(V18.0, Z83.3) Status:Active Family history of hypertensi on(V17.49, Z82.49) Status:Active Mother Name Dates Details Family history of arthritis( V17.7, Z82.61) Status:Active Father Name Dates Details Family history of Healthy ad ult Status:Active Sister Name Dates Details Family history of Healthy ad ult Status:Active Grandparent Name Dates Details Family history of hyperlipid emia(V18.19, Z83.438) Status:Active Family history of diabetes m ellitus(V18.0, Z83.3) Status:Active Family history of hypertensi on(V17.49, Z82.49) Status:Active Mother Name Dates Details Family history of arthritis( V17.7, Z82.61) Status:Active Father Name Dates Details Family history of Healthy ad ult Status:Active Sister Name Dates Details Family history of Healthy ad ult Status:Active Unknown Family Member Name Dates Details Family history of arthritis: Mother(V17.7, Z82.61) Status:Active Healthy adult: Father, Siste r Status:Active Family history of hyperlipid emia: Grandparent(V18.19, Z83.438) Status:Active Family history of diabetes m ellitus: Grandparent(V18.0, Z83.3) Status:Active Family history of hypertensi on: Grandparent(V17.49, Z82.49) Status:Active Unknown Family Member Name Dates Details Family history of arthritis: Mother(V17.7, Z82.61) Status:Active Healthy adult: Father, Siste r Status:Active Family history of hyperlipid emia: Grandparent(V18.19, Z83.438) Status:Active Family history of diabetes m ellitus: Grandparent(V18.0, Z83.3) Status:Active Family history of hypertensi on: Grandparent(V17.49, Z82.49) Status:Active Unknown Family Member Name Dates Details Family history of arthritis: Mother(V17.7, Z82.61) Status:Active Healthy adult: Father, Siste r Status:Active Family history of hyperlipid emia: Grandparent(V18.19, Z83.438) Status:Active Family history of diabetes m ellitus: Grandparent(V18.0, Z83.3) Status:Active Family history of hypertensi on: Grandparent(V17.49, Z82.49) Status:Active Unknown Family Member Name Dates Details Family history of arthritis: Mother(V17.7, Z82.61) Status:Active Healthy adult: Father, Siste r Status:Active Family history of hyperlipid emia: Grandparent(V18.19, Z83.438) Status:Active Family history of diabetes m ellitus: Grandparent(V18.0, Z83.3) Status:Active Family history of hypertensi on: Grandparent(V17.49, Z82.49) Status:Active Unknown Family Member Name Dates Details Family history of arthritis: Mother(V17.7, Z82.61) Status:Active Healthy adult: Father, Siste r Status:Active Family history of hyperlipid emia: Grandparent(V18.19, Z83.438) Status:Active Family history of diabetes m ellitus: Grandparent(V18.0, Z83.3) Status:Active Family history of hypertensi on: Grandparent(V17.49, Z82.49) Status:Active Unknown Family Member Name Dates Details Family history of arthritis: Mother(V17.7, Z82.61) Status:Active Healthy adult: Father, Siste r Status:Active Family history of hyperlipid emia: Grandparent(V18.19, Z83.438) Status:Active Family history of diabetes m ellitus: Grandparent(V18.0, Z83.3) Status:Active Family history of hypertensi on: Grandparent(V17.49, Z82.49) Status:Active Unknown Family Member Name Dates Details Family history of arthritis: Mother(V17.7, Z82.61) Status:Active Healthy adult: Father, Siste r Status:Active Family history of hyperlipid emia: Grandparent(V18.19, Z83.438) Status:Active Family history of diabetes m ellitus: Grandparent(V18.0, Z83.3) Status:Active Family history of hypertensi on: Grandparent(V17.49, Z82.49) Status:Active Unknown Family Member Name Dates Details Family history of arthritis: Mother(V17.7, Z82.61) Status:Active Healthy adult: Father, Siste r Status:Active Family history of hyperlipid emia: Grandparent(V18.19, Z83.438) Status:Active Family history of diabetes m ellitus: Grandparent(V18.0, Z83.3) Status:Active Family history of hypertensi on: Grandparent(V17.49, Z82.49) Status:Active Unknown Family Member Name Dates Details Family history of arthritis: Mother(V17.7, Z82.61) Status:Active Healthy adult: Father, Siste r Status:Active Family history of hyperlipid emia: Grandparent(V18.19, Z83.438) Status:Active Family history of diabetes m ellitus: Grandparent(V18.0, Z83.3) Status:Active Family history of hypertensi on: Grandparent(V17.49, Z82.49) Status:Active Unknown Family Member Name Dates Details Family history of arthritis: Mother(V17.7, Z82.61) Status:Active Healthy adult: Father, Siste r Status:Active Family history of hyperlipid emia: Grandparent(V18.19, Z83.438) Status:Active Family history of diabetes m ellitus: Grandparent(V18.0, Z83.3) Status:Active Family history of hypertensi on: Grandparent(V17.49, Z82.49) Status:Active Unknown Family Member Name Dates Details Family history of arthritis: Mother(V17.7, Z82.61) Status:Active Healthy adult: Father, Siste r Status:Active Family history of hyperlipid emia: Grandparent(V18.19, Z83.438) Status:Active Family history of diabetes m ellitus: Grandparent(V18.0, Z83.3) Status:Active Family history of hypertensi on: Grandparent(V17.49, Z82.49) Status:Active Unknown Family Member Name Dates Details Family history of arthritis: Mother(V17.7, Z82.61) Status:Active Healthy adult: Father, Siste r Status:Active Family history of hyperlipid emia: Grandparent(V18.19, Z83.438) Status:Active Family history of diabetes m ellitus: Grandparent(V18.0, Z83.3) Status:Active Family history of hypertensi on: Grandparent(V17.49, Z82.49) Status:Active Unknown Family Member Name Dates Details Family history of arthritis: Mother(V17.7, Z82.61) Status:Active Healthy adult: Father, Siste r Status:Active Family history of hyperlipid emia: Grandparent(V18.19, Z83.438) Status:Active Family history of diabetes m ellitus: Grandparent(V18.0, Z83.3) Status:Active Family history of hypertensi on: Grandparent(V17.49, Z82.49) Status:Active Unknown Family Member Name Dates Details Family history of arthritis: Mother(V17.7, Z82.61) Status:Active Healthy adult: Father, Siste r Status:Active Family history of hyperlipid emia: Grandparent(V18.19, Z83.438) Status:Active Family history of diabetes m ellitus: Grandparent(V18.0, Z83.3) Status:Active Family history of hypertensi on: Grandparent(V17.49, Z82.49) Status:Active Unknown Family Member Name Dates Details Family history of arthritis: Mother(V17.7, Z82.61) Status:Active Healthy adult: Father, Siste r Status:Active Family history of hyperlipid emia: Grandparent(V18.19, Z83.438) Status:Active Family history of diabetes m ellitus: Grandparent(V18.0, Z83.3) Status:Active Family history of hypertensi on: Grandparent(V17.49, Z82.49) Status:Active Relationship Condition Age at Onset Recorded Date/T bertin grandfather Alcoholism Unknown Anxiety Unknown Depression Unknown grandmother Alcoholism Unknown father Alcoholism Unknown grandmother Arthritis Unknown Diabetes mellitus Unknown Disorder of endocrine system Unknown Cyst of ovary Unknown History of hysterectomy 30 grandfather Hypertension Unknown High blood cholesterol Unknown Malignant neoplasm of skin Unknown mother Anxiety Unknown Arthritis Unknown aunt Anxiety Unknown Malignant neoplasm of brain Unknown Advance Directives No Advanced Directives Records FoundNo Advanced Directives Records FoundNo Advanced Directives Records FoundNo Advanced Directives Records FoundNo Advanced Directives Records FoundNo Advanced Directives Records FoundNo Advanced Directives Records FoundNo Advanced Directives Records FoundNo Advanced Directives Records FoundNo Advanced Directives Records FoundNo Advanced Directives Records Found Chief Complaint Patient is here to discuss infertility. States stopped BCP 08/29. LMP 04/27/21FUV in office today for constipation and diarrhea, abdominal pain and bloating, having difficulty belching.* 21 y/o female presents for ED f/u * Pt went to the ED 07/19/2021 for LT foot pain * Pt states her LT foot previously had a stress fracture * She states she injured it again from stepping wrong while walking * She states she was placed in a air cast boot but it deflated * Pt states she feels the boot made the pain worse * Pt states she did not realize her boot popped and was with it still * 21 y/o female presents for a bump on her head * She noticed the bump on her LT parietal scalp * Pt states she noticed it about a week ago * She states its really sore and raised * Unsure of other symptoms due to having migraines * Pt would like to talk about something for her allergies * She states Claritin doesn't seem to help anymore * 21 y/o female presents for 6 week f/u * Pt states the Amitriptyline has been helping with her migraines * She realized when she stopped it, she realized it really was helping * She is picking up her Amitriptyline * Pt states she was recently sick with Covid 11/12/2021 * She is still experiencing dry cough, congestion, sneezing, SOB, achy, tender * 21 y/o female presents for 2 month f/u * Medications proposed and verified * +Depression screening * Patient is here for yearly exam. Patient does self breast exams regularly. LMP 12/23/22 * PT STATES SHE HAS BEEN TRYING TO GET FOR A YEAR NOW. Chief Complaint and Reason for Visit Chief Complaint Admit Date Annual (ACCOUNTS PAYABLE OR RECEIVABLE CLERK) April 22, 2025 9:19 am Reason for Visit Admit Date Infertility management April 22, 2025 9 :19am Irregular menses April 22, 2025 9:19 am Obesity April 22, 2025 9:19 am Encounter for routine gynecological exam ination April 22, 2025 9:19am Reason for Visit Admit Date Encounter for routine gynecological exam ination April 22, 2025 9:19am Additional Source Comments INFORMATION SOURCE (unrecogn ized section and content) DATE CREATED AUTHOR 05/05/2018 [facility] DATE CREATED AUTHOR AUTHOR'S ORGANIZ ATION 06/16/2019 [facility] DATE CREATED AUTHOR AUTHOR'S ORGANIZ ATION 01/03/2023 [facility] DATE CREATED AUTHOR AUTHOR'S ORGANIZ ATION 03/16/2023 [facility] DATE CREATED AUTHOR AUTHOR'S ORGANIZ ATION 03/18/2023 [facility] DATE CREATED AUTHOR AUTHOR'S ORGANIZ ATION 03/03/2024 [facility] DATE CREATED AUTHOR AUTHOR'S ORGANIZ ATION 11/26/2024 [facility] DATE CREATED AUTHOR AUTHOR'S ORGANIZ ATION 11/27/2024 [facility] DATE CREATED AUTHOR AUTHOR'S ORGANIZ ATION 03/15/2025 [facility] DATE CREATED AUTHOR AUTHOR'S ORGANIZ ATION 03/15/2025 [facility] DATE CREATED AUTHOR AUTHOR'S ORGANIZ ATION 05/02/2025 [facility] <item><item><item><item><item> Privacy Markings (unrecogniz ed section and content) Section Author: Latosha Tirado PROHIBITION ON REDISCLOSURE OF CONFIDENTIAL INFORMATION This notice accompanies a disclosure of information concerning a client made to you with the consent of such client. Section Author: Latosha Tirado PROHIBITION ON REDISCLOSURE OF CONFIDENTIAL INFORMATION This notice accompanies a disclosure of information concerning a client made to you with the consent of such client. Section Author: Latosha Tirado PROHIBITION ON REDISCLOSURE OF CONFIDENTIAL INFORMATION This notice accompanies a disclosure of information concerning a client made to you with the consent of such client. Section Author: Latosha Tirado PROHIBITION ON REDISCLOSURE OF CONFIDENTIAL INFORMATION This notice accompanies a disclosure of information concerning a client made to you with the consent of such client. Section Author: Latosha Tirado PROHIBITION ON REDISCLOSURE OF CONFIDENTIAL INFORMATION This notice accompanies a disclosure of information concerning a client made to you with the consent of such client. Reason for Visit (unrecogniz ed section and content) Reason Comments Annual Exam Reason Comments Allergic Reaction Allergic reaction to hair dye. Had hair done on Friday and now has facial swelling. Throat feels irritated, no signs of airway edema Reason Comments URI Body aches, diarrhea , chills, cough, congestion, ear discomfort, scratchy throat X 2 days Reason Comments Well Woman Reason Comments pt to est care Care Teams (unrecognized sec tion and content) Electric Blanket Wirer Relationship Specialty Start Date End Date Jarrod Patton DO [address] [facility] [place] [address] PCP - General 07/21/19 Porsche Mack, LETTER STAMPING MACHINE OPERATOR-PRESS PULLER [address] [facility], [address] [place] [address] PCP - [employer] PCP 11/10/21 Electric Blanket Wirer Relationship Specialty Start Date End Date Jarrod Patton DO [address] [facility] [place] [address] PCP - General 07/21/19 Porsche Mack, LETTER STAMPING MACHINE OPERATOR-PRESS PULLER [address] [facility], [address] [address] PCP - [employer] PCP 11/10/21 Electric Blanket Wirer Relationship Specialty Start Date End Date Jarrod Patton DO [address] [facility] [place] [address] PCP - General 07/21/19 Porsche Mack, LETTER STAMPING MACHINE OPERATOR-PRESS PULLER [address] [facility], [address] [address] PCP - [employer] PCP 11/10/21 Electric Blanket Wirer Relationship Specialty Start Date End Date Jarrod Patton DO [address] [facility] [place] [address] PCP - General 07/21/19 Electric Blanket Wirer Relationship Specialty Start Date End Date Jarrod Patton DO [address] [facility] [place] [address] PCP - General Internal Medicine 06/27/20 Electric Blanket Wirer Relationship Specialty Start Date End Date Steve Martin PA-C [address] [facility], [address] [address] PCP - General Family Medicine 12/07/24 Team Status: Inactive Member Role Status Dates CHERELLE FloresC Attending Provider Active Start: April 22, 2025 End: April 22, 2025 Team Status: Active Member Role Status Dates SHOAIB Flores Attending Provider Active Start: April 22, 2025 SHOAIB Flores Referring Provider Active Start: April 22, 2025 Team Status: Active Member Role Status Dates ILANA Granda Primary Care Provider Active Team Status: Inactive Member Role Status Dates SHOAIB Flores Attending Provider Active Start: April 22, 2025 End: April 22, 2025 SHOAIB Flores Referring Provider Active Start: April 22, 2025 End: April 22, 2025 Scheduled Active and Recently Administ ered Medications (unrecognized section and content) Medication Order 02/19/2024 02/20/2024 02/21/2024 famotidine (Pepcid) tablet 40 mg (COMPLETED) 40 mg, oral, Once, On 02/21/24 at 1025, For 1 dose 1031 (Given - Provid er: Donal Escobar RN) predniSONE (Deltasone) tablet 40 mg (COMPLETED) 40 mg, oral, Once, On 02/21/24 at 1025, For 1 dose 1031 (Given - Provid er: Donal Escobar RN) Source Comments (unrecognize d section and content) In the event this informatio n is protected by the Federal Confidentiality of Alcohol and Drug Abuse Patient Records regulations: The Federal rules restrict any use of the information to criminally investigate or prosecute any alcohol or drug abuse patient.[facility] Goals (unrecognized section and content) Goals may be documented in a n alternate sectionGoals may be documented in an alternate section FOR RECORDS PERTAINING TO PATIENTS WHO ARE OR HAVE BEEN ENROLLED IN A CHEMICAL DEPENDENCY/SUBSTANCEABUSE PROGRAM, SOME INFORMATION MAY BE OMITTED. This clinical summary was aggregated from multiple sources. Caution should be exercised in using it in the provision of clinical care. This summary normalizes information from multiple sources, and as a consequence, information in this document may materially change the coding, format and clinical context of patient data. In addition, data may be omitted in some cases. CLINICAL DECISIONS SHOULD BE BASED ON THE PRIMARY CLINICAL RECORDS. [facility] [employer] [facility]. provides no warranty or guarantee of the accuracy or completeness of information in this document.
== END | disposition home or self-care (01) ==
LOC: OPUS 15:55
PROVIDERS: PCP Physician Assistant; Referring Provider Nurse Practitioner Family; Visit Provider Nurse Practitioner Family
DX: N92.6 Irregular menstruation, unspecified (principal)
CPT/HCPCS: 76830; 76856

== ENCOUNTER → 2025-05-18 | Outpatient (CLI) | payer OTHER, SELFPAY ==
[2025-05-18 13:43] LABS: AST(SGOT) 39 U/L (<=31); Alanine Aminotransfer ALT/SGPT 55 U/L (<=34); Albumin, Serum 4.1 g/dL (3.5-5.0); Alkaline Phosphatase 91 U/L (35-104); Anion Gap 11 (5-15); BUN 10 mg/dL (4-19); BUN/Creat Ratio 12.6 RATIO (10-20); Calcium,Total 9.1 mg/dL (7.6-11.0); Carbon Dioxide 24.2 mmol/L (21.0-32.0); Chloride 103 mmol/L (98-108); Globulin 3.1 g/dL (2.2-4.2); Glucose 118 mg/dL (70-99); Potassium 4.0 mmol/L (3.3-5.1); Vitamin D,25 Hydroxy 26.0 ng/mL (30-100)
== END | disposition home or self-care (01) ==
PROVIDERS: PCP Physician Assistant; Referring Provider Nurse Practitioner Family; Visit Provider Nurse Practitioner Family
DX: Z31.9 Encounter for procreative management, unspecified (principal); E55.9 Vitamin D deficiency, unspecified
CPT/HCPCS: 36415; 80053; 82306

== ENCOUNTER → 2025-07-15 | Outpatient (CLI) | payer OTHER, SELFPAY ==
[2025-07-15 16:20] LABS: AST(SGOT) 39 U/L (<=31); Alanine Aminotransfer ALT/SGPT 60 U/L (<=34); Albumin, Serum 4.2 g/dL (3.5-5.0); Alkaline Phosphatase 79 U/L (35-104); Anion Gap 11 (5-15); BUN 13 mg/dL (4-19); BUN/Creat Ratio 15.9 RATIO (10-20); Calcium,Total 9.2 mg/dL (7.6-11.0); Carbon Dioxide 24.4 mmol/L (21.0-32.0); Chloride 101 mmol/L (98-108); Globulin 3.1 g/dL (2.2-4.2); Glucose 90 mg/dL (70-99); Potassium 4.0 mmol/L (3.3-5.1); Vitamin D,25 Hydroxy 50.2 ng/mL (30-100)
== END | disposition home or self-care (01) ==
PROVIDERS: PCP Physician Assistant; Visit Provider Nurse Practitioner Family
DX: R74.8 Abnormal levels of other serum enzymes (principal); N92.6 Irregular menstruation, unspecified; E55.9 Vitamin D deficiency, unspecified
CPT/HCPCS: 36415; 80053; 82306

== ENCOUNTER → 2025-08-08 | Outpatient (CLI) | payer OTHER, SELFPAY ==
[2025-08-10 04:07] LABS: PROGESTERONE 5.7 ng/mL (.)
== END | disposition home or self-care (01) ==
PROVIDERS: PCP Physician Assistant; Referring Provider Nurse Practitioner Family; Visit Provider Nurse Practitioner Family
DX: N92.6 Irregular menstruation, unspecified (principal); Z31.9 Encounter for procreative management, unspecified
CPT/HCPCS: 36415; 84144